=== PATIENT | male | born 1925 | race Caucasian/White ===

== ENCOUNTER 2016-07-03 18:08 | Emergency (ER) | payer MEDICARE, OTHER ==
[~2016-07-03] VITALS: Wt 62.0 kg
[~2016-07-03 18:08] MED LIST: ASPI-664 PO; CARV3.1260 PO; CLOP75TA27 PO; DEXL30CA2 PO; DONE10TA7 PO; ENAL5TAB PO; GABA300C16 PO; ISOS60TA PO; METF-382 PO; METR500T14 PO; SPIR25TA PO; ZOC20 PO
[2016-07-03 18:35] VITALS: TEMP 98.3
[2016-07-03] MEDS ORDERED: SOD CHLORIDE 0.9% 500 ML IV STA (18:46)
[2016-07-03 19:37] LABS: ADD SCAN DIFF NO
--- NOTE | 2016-07-03 19:38 | ERD ---
ER Documentation Chief Complaint Date/Time DATE: 07/03/16 TIME: 19:35 Chief Complaint ALTERED PER X 1 DAY HPI 89-year-old male history of dementia. 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 The patient's daughter states that he is always confused at baseline. The reason they are here in the emergency room is because of abdominal pain. The patient has had 24 hours of abdominal cramping and difficulty having bowel movements. No nausea or vomiting. The patient has had hernia surgery in the past. Patient's pain is moderate, cramping and intermittent. The patient does not take a stool softener. ROS All systems reviewed and are negative except as per history of present illness. Medications Home Meds Active Scripts Metronidazole* (Metronidazole*) 500 Mg Tablet, 500 MG PO Q8, #9 TAB Take 1 tablet 3 times a day for 3 days Prov:KODY BISHOP 02/19/15 Reported Medications Carvedilol* (Carvedilol*) 3.125 Mg Tablet, 3.125 MG PO DAILY, TAB 02/13/15 Isosorbide Mononitrate* (Isosorbide Mononitrate*) 60 Mg Tab.er.24h, 60 MG PO DAILY, TAB 02/13/15 Dexlansoprazole (Dexilant) 30 Mg Cap.mp, 30 MG PO DAILY, CAP 02/13/15 Gabapentin* (Gabapentin*) 300 Mg Capsule, 300 MG PO QHS, CAP 02/13/15 Spironolactone* (Aldactone*) 25 Mg Tablet, 25 MG PO DAILY, TAB 02/13/15 Clopidogrel Bisulfate (Clopidogrel) 75 Mg Tablet, 75 MG PO DAILY, TAB 02/13/15 Simvastatin (Simvastatin) 20 Mg Tablet, 20 MG PO HS, TAB 02/13/15 Donepezil* (Donepezil*) 10 Mg Tablet, 10 MG PO DAILY, TAB 02/13/15 Aspirin (Low Dose Aspirin) 81 Mg Tablet., 81 MG PO DAILY 02/13/15 Metformin Hcl* (Metformin Hcl*) 500 Mg Tablet, 500 MG PO WITH BREAKFAST, TAB 02/13/15 Enalapril Maleate* (Enalapril Maleate*) 5 Mg Tablet, 5 MG PO DAILY, TAB 10/13/14 Allergies Allergies: Coded Allergies: No Known Allergy (Unverified , 04/04/15) PMhx/Soc History of Surgery: No Anesthesia Reaction: No Hx Neurological Disorder: No Hx Respiratory Disorders: No Hx Cardiac Disorders: No Hx Psychiatric Problems: No Hx Miscellaneous Medical Probl: Yes (DM 2, HYPERLIPIDEMIA, DEMENTIA, HTN) Hx Alcohol Use: No Hx Substance Use: No Hx Tobacco Use: No FmHx Family History: No diabetes Physical Exam Vitals Vital Signs Date Time Temp Pulse Resp B/P Pulse Ox O2 Delivery O2 Flow Rate FiO2 07/03/16 18:09 98.0 101 18 163/77 99 Physical Exam General: Well developed, well nourished, no acute distress Head: Normocephalic, atraumatic. Eyes: Pupils equally reactive, EOM intact ENT: Moist mucous membranes Neck: Supple, no lymphadenopathy Respiratory: Lungs clear bilaterally, no distress Cardiovascular: RRR, no murmurs, rubs, or gallops Abdominal: Soft, mild diffuse tenderness without rebound or guarding, no pulsatile mass : Normal descended testicles without swelling, no inguinal hernia bilaterally MSK: No edema, no unilateral swelling, 5/5 strength Neurologic: Alert and oriented at neurologic baseline, moving all extremities, normal speech, no focal weakness, no cerebellar signs Skin: No rash Psych: Normal mood Result Diagram: 07/03/16 1900 07/03/161899 Results 24 hrs Laboratory Tests Test 07/03/16 19:00 Alanine Aminotransferase (ALT/SGPT) 19IU/L Albumin 3.9g/dl Albumin/Globulin Ratio 0.90 Alkaline Phosphatase 91IU/L Anion Gap 16 Aspartate Amino Transf (AST/SGOT) 32IU/L Basophils # 0.010^3/ul Basophils % 0.4% Blood Urea Nitrogen 16mg/dl Calcium Level 8.7mg/dl Carbon Dioxide Level 26mmol/L Chloride Level 100mmol/L Creatinine 1.13mg/dl Direct Bilirubin 0.00mg/dl Eosinophils # 0.210^3/ul Eosinophils % 1.4% Globulin 4.30g/dl Glucose Level 141mg/dl Hematocrit 35.4% Hemoglobin 11.9g/dl Indirect Bilirubin 0.2mg/dl Lipase 92U/L Lymphocytes # 1.310^3/ul Lymphocytes % 11.6% Mean Corpuscular Hemoglobin 29.0pg Mean Corpuscular Hemoglobin Concent 33.6g/dl Mean Corpuscular Volume 86.3fl Mean Platelet Volume 12.4fl Monocytes # 0.710^3/ul Monocytes % 6.5% Neutrophils # 8.910^3/ul Neutrophils % 79.8% Nucleated Red Blood Cells # 0.010^3/ul Nucleated Red Blood Cells % 0.0/100WBC Platelet Count 52205^3/UL Potassium Level 4.2mmol/L Red Blood Count 4.1010^6/ul Red Cell Distribution Width 15.1% Sodium Level 138mmol/L Total Bilirubin 0.2mg/dl Total Protein 8.2g/dl Urine Bilirubin NEGATIVE Urine Clarity CLEAR Urine Color YELLOW Urine Glucose NEGATIVE% Urine Hemoglobin NEGATIVE Urine Ketones NEGATIVE Urine Leukocyte Esterase NEGATIVE Urine Nitrite NEGATIVE Urine Specific Apex 1.010 Urine Total Protein NEGATIVE Urine Urobilinogen 0.2 E.U./dL Urine pH 7.0 White Blood Count 11.210^3/ul Current Medications Medications (Trade) Dose Ordered Sig/Jeff Route PRN Reason Start Time Stop Time Status Last Admin Dose Admin Sodium Chloride (NS) 500 ml @ 500 mls/hr Q1H STAT IV 07/03/16 18:46 07/03/16 19:45 DC 07/03/16 19:26 IV Flush 10 ml 10 ml STK-MED ONCE .ROUTE 07/03/16 20:28 07/03/16 20:29 DC Sodium Chloride (NS) 100 ml @ ud STK-MED ONCE .ROUTE 07/03/16 20:28 07/03/16 20:29 DC Iodixanol (Visipaque Locm) 100 ml STK-MED ONCE .ROUTE 07/03/16 20:28 07/03/16 20:29 DC Procedures/MDM EKG, MONITORS, & DIAGNOSTIC IMAGING: CT abdomen and pelvis: Pending LAB INTERPRETATION: Subtle leukocytosis but nonsignificant, no hepatobiliary obstruction, no urinary tract infection MEDICAL DECISION MAKING: The patient presents with baseline dementia that is unchanged. He is here because of abdominal pain likely secondary to constipation. However given the patient's age, surgical history cannot rule out acute intra-abdominal process such as obstruction. The patient has no evidence of hernia on clinical exam. The patient will benefit from CT imaging of the abdomen and pelvis. If negative the patient will be started on a bowel regimen. ER COURSE: The patient continues to be well-appearing at this time. The patient CT imaging is pending. The patient will be endorsed to the oncoming provider. CT imaging shows no evidence of acute intra-abdominal process the patient can be safely discharged on a bowel regimen. Discharge paperwork will be placed in the chart. I kept the patient and/or family informed of laboratory and diagnostic imaging results throughout the emergency room course. DISPOSITION PLAN: Pending CT imaging but anticipate discharge home We discussed follow up with the patient's primary care doctor within 24 to 48 hours as needed. We also discussed return to the emergency room for worsening symptoms or worsening condition. Outpatient referral: [None required] Discharge Medications: MiraLAX Departure Diagnosis: Primary Impression: Constipation Constipation type: unspecified constipation type Qualified Code: K59.00 - Constipation, unspecified constipation type Additional Impression: Generalized abdominal pain Condition: Stable JESSICA MERCADO MD Jul 03, 2016 19:38
[2016-07-03 19:43] LABS: ADD UMIC NO; BASOPHILS % 0.4 % (0.0-2.0); EOSINOPHILS # 0.2 10^3/ul (0.0-0.5); EOSINOPHILS % 1.4 % (0.0-7.0); HEMATOCRIT 35.4 % (42.0-52.0); HEMOGLOBIN 11.9 g/dl (14.0-18.0); LYMPHOCYTES # 1.3 10^3/ul (0.8-2.9); LYMPHOCYTES % 11.6 % (15.0-51.0); MEAN CORPUSCULAR HGB CONC 33.6 g/dl (32.0-37.0); MEAN CORPUSCULAR VOLUME 86.3 fl (82.0-101.0); MEAN PLATELET VOLUME 12.4 fl (7.4-10.4); MONOCYTE # 0.7 10^3/ul (0.3-0.9); MONOCYTES % 6.5 % (0.0-11.0); NEUTROPHIL # 8.9 10^3/ul (1.6-7.5); NEUTROPHILS % 79.8 % (39.0-77.0); PLATELET COUNT 216 10^3/UL (140-415); RED CELL DISTRIBUTION WIDTH 15.1 % (11.5-14.5); URINE BILIRUBIN (Dip) NEGATIVE (NEGATIVE); URINE BLOOD (Dip) NEGATIVE (NEGATIVE); URINE COLOR YELLOW (YELLOW); URINE GLUCOSE (Dip) NEGATIVE (NEGATIVE); URINE KETONES (Dip) NEGATIVE (NEGATIVE); URINE LEUKOCYTE ESTERASE (Dip) NEGATIVE (NEGATIVE); URINE NITRITE (Dip) NEGATIVE (NEGATIVE); URINE TOTAL PROTEIN (Dip) NEGATIVE (NEGATIVE); URINE UROBILINOGEN (Dip) 0.2 E.U./dL (0.1-1.0); WHITE BLOOD COUNT 11.2 10^3/ul (4.8-10.8)
[2016-07-03 19:50] LABS: ALBUMIN 3.9 g/dl (3.3-4.9)
[2016-07-03 19:51] LABS: POTASSIUM 4.2 mmol/L (3.5-5.1)
[2016-07-03 19:53] LABS: ALBUMIN/GLOBULIN RATIO 0.9; BILIRUBIN,INDIRECT 0.2 mg/dl (0-1.1); BILIRUBIN,TOTAL 0.2 mg/dl (0.2-1.3); CALCIUM 8.7 mg/dl (8.4-10.2); CREATININE 1.13 mg/dl (0.61-1.24); TOTAL PROTEIN 8.2 g/dl (6.1-8.1)
[2016-07-03 20:00] VITALS: BP 157/83; PULSE 93; RESP 22
[2016-07-03] MEDS ORDERED: SOD CHLORIDE 0.9% 100 ML ONE (20:28)
[2016-07-03] MEDS ORDERED: IODIXANOL LOCM 100 ML BTL ONE (20:28)
[2016-07-03] MEDS ORDERED: GLYC1SUP92 PR (20:41)
[2016-07-03] MEDS ORDERED: POLY17PO6 PO (20:41)
--- NOTE | 2016-07-03 21:03 | RADRPT ---
PROCEDURE: CT Abdomen and Pelvis with contrast. CLINICAL INDICATION: Abdomen and pelvis pain. TECHNIQUE: CT scan of the abdomen and pelvis with contrast was performed. The patient was scanned following the uncomplicated intravenous administration of 100 cc of Visipaque 320. Coronal and sag ittal reformatted images were obtained from the axial source images. Images were reviewed on a high- resolution PACS workstation. Total exam DLP is 285.72 mGy-cm. CTDIvol is 5.39 mGy. One or more of the following dose reduction techniques were used: Automated exposure control, adjustment of the mA and/or kV according to patient size, use of iterative reconstruction technique. COMPARISON: CT scan of the abdomen and pelvis dated 02/13/2015 which demonstrated diverticulosis o f the sigmoid colon, thickening of the wall of the sigmoid colon, scarring at the lung bases, bilate ral fat containing inguinal hernias, and atherosclerosis of the abdominal aorta. FINDINGS: As seen previously, there is fibrosis at both lung bases. This is now worse than seen previously. Mild bronchiectasis is also present at the lung bases posteriorly, unchanged. The lung bases are ot herwise normal. There is no pleural effusion or pericardial effusion. There is coronary artery palmira cification. The liver is normal in size and attenuation. There is no focal hepatic lesion. The gallbladder is unremarkable. The common bile duct is mildly dilated measuring 0.9 cm. There is a possible stone in the distal common bile duct measuring 1.1 x 0.6 cm. The spleen is normal in size. There is no focal splenic lesion. Both adrenals are normal with no enlargement or mass. The pancreas is unremarkable with no mass or evidence of pancreatitis. Both kidneys demonstrate normal contrast enhancement. There is no renal mass or hydronephrosis. The abdominal aorta is not dilated. There is calcification in the aorta consistent with atheroscler osis. There is no retroperitoneal lymphadenopathy or mass. There is no pelvic lymphadenopathy or mass. The bladder and distal ureters are normal. The prostate is surgically absent with surgical clips not ed in the pelvis. The appendix is well seen and appears normal. There is diverticulosis throughout the sigmoid colon. There is no evidence of diverticulitis. Ther e is a large amount of stool in the rectosigmoid consistent with constipation. The bowel and mesent catalina are otherwise normal. There is no free fluid or free gas. There are degenerative changes of the spine. There is no fracture, lytic lesion, or blastic lesion. IMPRESSION: 1. Fibrosis at the lung bases, worse than seen previously. 2. Mild bronchiectasis at the lung bases posteriorly, unchanged. 3. Coronary artery calcification. 4. Mildly dilated common bile duct and possible stone in the distal common bile duct measuring 1.1 x 0.6 cm. 5. Atherosclerosis. 6. Status post prostatectomy. 7. Diverticulosis of the sigmoid colon without evidence of diverticulitis. 8. Constipation. 9. Degenerative changes of the spine. RPTAT: QQ .Enmanuel Vaca MD, MD Date Time Electronically viewed and signed by .Enmanuel Vaca MD, MD on 07/03/2016 21:03 .R/
[2016-07-03] MEDS ORDERED: morphine 2 MG INJ IV ONE (21:30)
[2016-07-03] MEDS ORDERED: ONDANSETRON 4 MG INJ IV STA (21:30)
--- NOTE | 2016-07-03 22:36 | RADRPT ---
PROCEDURE: US right upper quadrant CLINICAL INDICATION: Abdominal pain. Possible gallstone obstructing the distal common bile duct o n CT TECHNIQUE: Multiple real-time images were acquired of the patient's right upper abdomen utilizing a high resolution transducer. Technical note: The examination is limited by bowel gas and the patient's body habitus. COMPARISON: CT abdomen and pelvis 07/03/2016 FINDINGS: Liver: Normal in size, contour and echogenicity. Normal directional blood flow is seen within the p atent main portal vein. The maximum dimension estimated at 12 cm . Gallbladder: Normal. No sonographic Monroy's sign is reported. Common bile duct: Normal; 3.8 mm. There is no evidence for choledocholithiasis, the calcification seen on the CT at the distal common bile duct is not evident. Right Kidney: Normal; maximum length measured at approximately 9 cm. Pancreas: Obscured by bowel gas. RPTAT:HJJR IMPRESSION: 1. Limited exam because of bowel gas and the patient's body habitus. 2. Calcification and common bile duct dilatation suggested on the CT from earlier the same day is n ot evident on ultrasound. The CT finding may reflect a calculus already passed into the duodenum or possibly duodenal debris within a diverticulum. 3. Bowel gas obscures evaluation of the pancreas. Physician Ziyad Date Time Electronically viewed and signed by Physician Ziyad on 07/03/2016 22:35 /
--- NOTE | 2016-07-03 22:43 | EN ---
Date/Time of Note Date/Time of Note DATE: 07/03/16 TIME: 22:41 ER Progress Note Patient had a CAT scan performed which is interpreted as a possible gallstone obstructing the gallbladder. His lab work was not consistent with this however he is an 89-year-old gentleman who is here complaining of abdominal pain. For completion sake and to rule this out I ordered an ultrasound of his gallbladder. Likely this did not reveal evidence of a gallstone nor did reveal evidence of obstruction. This is actually most consistent with the patient's lab work. I went ahead and placed the discharge paperwork that Dr. Lou had already printed up for the patient on the patient's chart. He has been encouraged to follow-up with his primary care physician tomorrow for reevaluation of his abdominal pain or to return immediately to the emergency department for any new or worsening symptoms. JUDY HONEYCUTT Jul 03, 2016 22:43
== END 2016-07-03 23:09 | disposition home or self-care (01) ==
LOC: E/R 18:08
DX: K59.00 Constipation, unspecified (principal); R10.84 Generalized abdominal pain; E11.9 Type 2 diabetes mellitus without complications; I10 Essential (primary) hypertension; Z79.82 Long term (current) use of aspirin; Z79.84 Long term (current) use of oral hypoglycemic drugs
CPT/HCPCS: 36415; 74177; 76705; 80053; 81003; 83690; 85025; 96374; 96375; 99285; J2270; J2405; J7040; Q9967

== ENCOUNTER 2016-08-24 20:44 | Inpatient (IN) | payer MEDICARE, OTHER ==
[~2016-08-24] VITALS: Ht 162.6 cm; Wt 52.6 kg
[~2016-08-24 20:44] MED LIST changes: +GLYC1SUP92 PR; -METF-382 PO; +METF500T4 PO; +POLY17PO6 PO; +SIMV20TA2 PO; -ZOC20 PO
[2016-08-24 20:48] VITALS: Ht 162.6 cm; Wt 52.6 kg
--- NOTE | 2016-08-24 21:55 | RADRPT ---
PROCEDURE: CT Brain without contrast. CLINICAL INDICATION: Trauma. Headache. TECHNIQUE: A CT of the brain without contrast was performed utilizing axial sections from the skul l base through the vertex. The patient was scanned without intravenous contrast enhancement. Sagitta l and coronal reformatted images were obtained using the data from the axial images. Total exam DLP is 632.99 mGy-cm. CTDIvol is 44.77 mGy. One or more of the following dose reduction techniques we re used: Automated exposure control, adjustment of the mA and/or kV according to patient size, use o f iterative reconstruction technique. COMPARISON: 04/03/2015. FINDINGS: There is normal gonzalez-white matter differentiation. There is enlargement of the ventricles and subarachnoid spaces consistent with atrophy. There is decreased attenuation of the periventricular white matter consistent with microangiopathic ischemic change. There is no acute intracranial hemorrhage. There are bilateral frontal low attenuation subdural flu id collections measuring up to 0.9 x 7.0 cm in thickness and AP dimension on the right and 0.9 x 9.0 cm in thickness and AP dimension on the left. There is mild mass effect with flattening of the sulc i in the frontal lobes with left worse than right. This is new when compared with the prior study. There is no midline shift. There are vascular calcifications consistent with atherosclerosis. There is no skull fracture or lytic lesion. IMPRESSION: 1. Atrophy. 2. Microangiopathic ischemic change. 3. Atherosclerosis. 4. 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 Mild mass effect with flattening of the sulci. 5. No acute intracranial hemorrhage. 6. Otherwise unremarkable noncontrast CT scan of the brain. RPTAT: QQ .Enmanuel Vaca MD, Date Time Electronically viewed and signed by .Enmanuel Vaca MD, on 08/24/2016 21:54 .R/
[2016-08-24] MEDS ORDERED: morphine 2 MG INJ IV ONE (22:00)
--- NOTE | 2016-08-24 22:03 | ERA ---
ER Documentation Chief Complaint Date/Time DATE: 08/24/16 TIME: 22:03 Chief Complaint from [facility] for left hip pain, fell few days ago, no new trauma HPI 89-year-old male with a history of dementia sent from his care home after he had a fall yesterday. He has been complaining of left hip pain. He was seen by Dr. Okeefe, who sent him here for evaluation. Per his , he has had frequent falls at home, which is why he went to another hospital about 6 days ago and was admitted for 5 days. Yesterday he was transferred to the care home. It is unclear how he fell per his , but he has been complaining of left hip pain since. He denies any other pain. He denies headache, nausea, vomiting, numbness or tingling. He complains of left upper thigh pain. Pain is worse with movement, better with not moving leg. ROS Review of systems limited secondary to patient's dementia. Selectively answering questions Medications Home Meds Reported Medications Dorzolamide/Timolol* (Dorzolamide/Timolol*) 10 Ml Drops, 1 DROP BOTH EYES DAILY , #1 EA 08/24/16 Bimatoprost* (Lumigan*) 0.01%-2.5 Ml Opht Drops, 1 DROP BOTH EYES HS, EA 08/24/16 Ranolazine* (Ranexa*) 500 Mg Tab.sr.12h, 500 MG PO Q12, TAB 08/24/16 Risperidone* (Risperidone*) 0.25 Mg Tablet, 0.25 MG PO QHS, TAB 08/24/16 Memantine* (Namenda*) 10 Mg Tablet, 10 MG PO DAILY, #30 TAB 08/24/16 Amiodarone Hcl* (Amiodarone Hcl*) 100 Mg Tablet, 100 MG PO DAILY, #30 TAB 08/24/16 Carvedilol* (Carvedilol*) 3.125 Mg Tablet, 3.125 MG PO DAILY, TAB 02/13/15 Isosorbide Mononitrate* (Isosorbide Mononitrate*) 60 Mg Tab.er.24h, 60 MG PO DAILY, TAB 02/13/15 Dexlansoprazole (Dexilant) 30 Mg Cap., 30 MG PO DAILY, CAP 02/13/15 Gabapentin* (Gabapentin*) 300 Mg Capsule, 300 MG PO QHS, CAP 02/13/15 Spironolactone* (Aldactone*) 25 Mg Tablet, 25 MG PO DAILY, TAB 02/13/15 Simvastatin (Simvastatin) 20 Mg Tablet, 20 MG PO HS, TAB 02/13/15 Donepezil* (Donepezil*) 10 Mg Tablet, 10 MG PO DAILY, TAB 02/13/15 Aspirin (Low Dose Aspirin) 81 Mg Tablet.dr, 81 MG PO DAILY 02/13/15 Metformin Hcl* (Metformin Hcl*) 500 Mg Tablet, 500 MG PO WITH BREAKFAST, TAB 02/13/15 Enalapril Maleate* (Enalapril Maleate*) 5 Mg Tablet, 5 MG PO DAILY, TAB 10/13/14 Discontinued Reported Medications Clopidogrel Bisulfate (Clopidogrel) 75 Mg Tablet, 75 MG PO DAILY, TAB 02/13/15 Discontinued Scripts Glycerin* (Glycerin (Adult)*) 1 Each Supp.rect, 1 EACH [place] DAILY Y for CONSTIPATION, #20 SUPP.RECT Prov:JESSICA MERCADO MD 07/03/16 Polyethylene Glycol* (Miralax*) 17 Gm Powd.pack, 17 GM PO DAILY Y for CONSTIPATION, #7 Prov:JESSICA MERCADO MD 07/03/16 Metronidazole* (Metronidazole*) 500 Mg Tablet, 500 MG PO Q8, #9 TAB Take 1 tablet 3 times a day for 3 days Prov:KODY BISHOP 02/19/15 Allergies Allergies: Coded Allergies: No Known Allergy (Unverified , 08/24/16) PMhx/Soc History of Surgery: No Anesthesia Reaction: No Hx Neurological Disorder: No Hx Respiratory Disorders: No Hx Cardiac Disorders: No Hx Psychiatric Problems: No Hx Miscellaneous Medical Probl: Yes (DM 2, HYPERLIPIDEMIA, DEMENTIA, HTN) Hx Alcohol Use: No Hx Substance Use: No Hx Tobacco Use: No Smoking Status: Never smoker FmHx Family History: other (Unable to obtain) Physical Exam Vitals Vital Signs Date Time Temp Pulse Resp B/P Pulse Ox O2 Delivery O2 Flow Rate FiO2 08/24/16 20:48 96.8 94 18 104/52 94 Physical Exam Const: Appears stated age, chronically ill-appearing, nontoxic, no distress Head: Atraumatic Eyes: Normal Conjunctiva ENT: Dry mucous membranes, external ears normal Neck: Full range of motion. No meningismus. No C-spine tenderness. Chest: Nontender to palpation, no crepitus, no deformity Resp: Clear to auscultation bilaterally Cardio: Regular rate and rhythm, no murmurs Abd: Soft, non tender, non distended. Normal bowel sounds Skin: No petechiae or rashes Back: No midline or flank tenderness Ext: No cyanosis, or edema. Left lower extremity is in external rotation. Patient screams when I try to move his leg. There are 2+ DP and PT pulses. Sensations are intact. He is able to move his toes. All other extremities are normal without any obvious deformities. Pelvis is stable. Neur: Awake and alert, oriented to self only, unable to test gait, spontaneously moving all other extremities Results 24 hrs Current Medications Medications (Trade) Dose Ordered Sig/Jeff Route PRN Reason Start Time Stop Time Status Last Admin Dose Admin Morphine Sulfate (morphine) 2 mg ONCE ONCE IV 08/24/16 22:00 08/24/16 22:01 DC 08/24/16 22:23 Ondansetron HCl (Zofran Inj) 4 mg BRIDGE ORDER PRN IV NAUSEA AND/OR VOMITING 08/24/16 22:30 08/25/16 22:29 Acetaminophen (Tylenol Tab) 650 mg ER BRIDGE PRN PO MILD PAIN/FEVER 08/24/16 22:30 08/25/16 22:29 IV Flush (NS 3 ml) 3 ml PER PROTOCOL IV 08/24/16 23:00 UNV Ondansetron HCl (Zofran Inj) 4 mg Q6H PRN IV NAUSEA AND/OR VOMITING 08/24/16 23:00 UNV Acetaminophen (Tylenol Tab) 650 mg Q6H PRN PO PAIN LEVEL 1-3 OR FEVER 08/24/16 23:00 UNV Acetaminophen/ Hydrocodone Bitart (Walnut (5/325)) 1 tab Q6H PRN PO MODERATE PAIN LEVEL 4-6 08/24/16 23:00 UNV Morphine Sulfate (morphine) 2 mg Q4H PRN IV SEVERE PAIN LEVEL 7-10 08/24/16 23:00 UNV Docusate Sodium (Colace) 100 mg Q12H PRN PO CONSTIPATION 08/24/16 23:00 UNV Magnesium Hydroxide (Milk Of Mag) 30 ml DAILY PRN PO CONSTIPATION 5/10/17 23:00 UNV Zolpidem Tartrate (Ambien) 5 mg QHS PRN PO SLEEP 08/24/16 23:00 UNV Pantoprazole (Protonix Tab) 40 mg DAILY@06 PO 08/25/16 06:00 UNV Heparin Sodium (Porcine) (Heparin (5000 Units/0.5 ml)) 5,000 unit Q12 SC 08/24/16 23:00 UNV Amiodarone HCl (Cordarone) 100 mg DAILY PO 08/25/16 09:00 UNV Aspirin (Halfprin) 81 mg DAILY PO 08/25/16 09:00 UNV Bimatoprost (Lumigan 0.01% Oph) 1 drop HS BOTH EYES 08/25/16 21:00 UNV Carvedilol (Coreg) 3.125 mg DAILY PO 08/25/16 09:00 UNV Donepezil HCl (Aricept) 10 mg DAILY PO 08/25/16 09:00 UNV Dorzolamide/ Timolol (Cosopt) 1 drop DAILY BOTH EYES 08/25/16 09:00 UNV Enalapril Maleate (Vasotec) 5 mg DAILY PO 08/25/16 09:00 UNV Gabapentin (Neurontin) 300 mg QHS PO 08/25/16 21:00 UNV Isosorbide Mononitrate (Imdur) 60 mg DAILY PO 08/25/16 09:00 UNV Memantine (Namenda) 10 mg DAILY PO 08/25/16 09:00 UNV Ranolazine (Ranexa) 500 mg Q12 PO 08/25/16 09:00 UNV Risperidone (Risperdal) 0.25 mg QHS PO 08/25/16 21:00 UNV Spironolactone (Aldactone) 25 mg DAILY PO 08/25/16 09:00 UNV Insulin Aspart (Novolog Insulin Pen) NOVOLOG *MODERATE* ALGORITHM WITH MEALS BEDTIME SC 08/25/16 08:00 UNV Miscellaneous Information (* Miscellaneous Pharmacy Order) HYPOGLYCEMIA PROTOCOL w... ONCE ONCE XX 08/24/16 23:00 08/24/16 23:01 UNV Miscellaneous Information (* Miscellaneous Pharmacy Order) Discontinue Glyburide, Glipizide,... ONCE ONCE XX 08/24/16 23:00 08/24/16 23:01 UNV Miscellaneous Information (* Miscellaneous Pharmacy Order) Discontinue all previ... ONCE ONCE XX 08/24/16 23:00 08/24/16 23:01 UNV Procedures/MDM X-ray left hip, pelvis, femur: Acute, closed, comminuted minimally displaced extracapsular intertrochanteric fracture of the left femur to with mild varus distraction of the fracture fragments. Chest x-ray: No acute abnormalities CT head shows no acute abnormalities, chronic changes noted Patient is presenting with left hip pain after a fall at his nursing facility yesterday. His exam is concerning for a hip fracture. Morphine 2 mg IV was given for pain. He is neurovascularly intact. X-rays show evidence of an intertrochanteric fracture. I spoke with his primary care doctor, Dr. Okeefe, who accepted him for admission to [facility]. He will contact Dr. Villela in the morning for a consult. Departure Diagnosis: Primary Impression: Intertrochanteric fracture of left femur Qualified Code: S72.142A - Intertrochanteric fracture of left femur, closed, initial encounter Condition: JOHN Hernandes MD August 24, 2016 22:03
[2016-08-24] MEDS ORDERED: AMIO100T4 PO (22:08)
[2016-08-24] MEDS ORDERED: MEMA10TA16 PO (22:09)
[2016-08-24] MEDS ORDERED: RISP0.253 PO (22:09)
[2016-08-24] MEDS ORDERED: BIMA2.5D BOTH EYES (22:10)
[2016-08-24] MEDS ORDERED: RANO500T2 PO (22:10)
[2016-08-24] MEDS ORDERED: DORZ10DR6 BOTH EYES (22:12)
--- NOTE | 2016-08-24 22:13 | RADRPT ---
PROCEDURE: XR Chest. CLINICAL INDICATION: Chest pain. Trauma TECHNIQUE: Portable AP supine view of the chest was obtained. COMPARISON: 04/03/2015 FINDINGS: The cardiomediastinal silhouette is within upper normal limits. Diffuse senescent interstitial fibr otic changes of the lung parenchyma are again noted without evidence of focal opacity, consolidation or infiltrate. No obvious pneumothorax is seen on the supine exposure. Demineralization is noted with an acute minimally displaced lateral left seventh rib fracture. RPTAT:HJJR IMPRESSION: 1. Left lateral seventh rib fracture without evidence of associated intrathoracic complication on t his supine exposure. 2. Generalized senescent interstitial changes of the lung parenchyma stable compared to 04/03/2015. Physician Ziyad Date Time Electronically viewed and signed by Tam Dooley Physician on 08/24/2016 22:13 JR/
--- NOTE | 2016-08-24 22:15 | RADRPT ---
PROCEDURE: XR Pelvis. CLINICAL INDICATION: Trauma TECHNIQUE: Single AP view of the pelvis. COMPARISON: No prior studies are available for comparison. FINDINGS: Abnormal jagged lucency coursing obliquely through the intertrochanteric region of the left femur is consistent with an acute fracture. No pelvic bone fracture is demonstrated. Demineralization cannot exclude osteoporosis. The sacroiliac joints and pubic symphysis are normal. Postoperative clips in the pelvis are seen RPTAT:HJJR IMPRESSION: Acute, closed, extracapsular intertrochanteric fracture of the left proximal femur with varus distra ction of the fracture fragments and a separate nondisplaced lesser trochanter fracture fragment. Physician Ziyad Date Time Electronically viewed and signed by Physician Ziyad on 08/24/2016 22:14 /
--- NOTE | 2016-08-24 22:16 | RADRPT ---
PROCEDURE: XR Hip. CLINICAL INDICATION: Post traumatic left hip pain TECHNIQUE: AP and frog lateral views of the left hip were performed. COMPARISON: Pelvis x-ray of 08/24/2016 FINDINGS: Abnormal jagged lucencies coursing obliquely through the trochanter region of the left femur consist ent with acute fracture. There is distraction of the fracture fragments is present. There is a nond isplaced separate fragment involving the lesser trochanter. The femoral head is normal in location. Generalized demineralization is concerning for osteoporosis. The soft tissues are unremarkable. . RPTAT:HJJR IMPRESSION: Acute, closed, comminuted minimally displaced extracapsular intertrochanteric fracture of the left f emur to with mild varus distraction of the fracture fragments. Physician Ziyad Date Time Electronically viewed and signed by Physician Ziyad on 08/24/2016 22:16 /
[2016-08-24] MEDS ORDERED: ONDANSETRON 4 MG INJ IV PRN ×2 (22:30→23:00)
[2016-08-24] MEDS ORDERED: ACETAMINOPHEN 325 MG TAB PO PRN (22:30)
--- NOTE | 2016-08-24 22:31 | RADRPT ---
PROCEDURE: XR Femur. CLINICAL INDICATION: Left leg pain. TECHNIQUE: AP and lateral views of the left femur were performed. COMPARISON: None. FINDINGS: There is an acute comminuted intratrochanteric fracture of the left hip. There is no other fracture and there is no dislocation. Surgical clips are present in the pelvis. Articular surfaces are intact. There is no lytic or blastic lesion. IMPRESSION: 1. Acute comminuted intertrochanteric fracture of the left hip. 2. Surgical clips in the pelvis. 3. Otherwise unremarkable study. RPTAT: QQ .Enmanuel Vaca MD, Date Time Electronically viewed and signed by .Enmanuel Vaca MD, on 08/24/2016 22:31 .R/
[2016-08-24 22:47] LABS: ADD SCAN DIFF NO
[2016-08-24 22:50] LABS: BASOPHILS % 0.2 % (0.0-2.0); EOSINOPHILS # 0.1 10^3/ul (0.0-0.5); EOSINOPHILS % 0.9 % (0.0-7.0); HEMATOCRIT 30.2 % (42.0-52.0); HEMOGLOBIN 10.5 g/dl (14.0-18.0); LYMPHOCYTES # 1.1 10^3/ul (0.8-2.9); LYMPHOCYTES % 8.4 % (15.0-51.0); MEAN CORPUSCULAR HEMOGLOBIN 30.1 pg (29.0-33.0); MEAN CORPUSCULAR HGB CONC 34.8 g/dl (32.0-37.0); MEAN CORPUSCULAR VOLUME 86.5 fl (82.0-101.0); MEAN PLATELET VOLUME 10.9 fl (7.4-10.4); MONOCYTE # 1.3 10^3/ul (0.3-0.9); MONOCYTES % 9.9 % (0.0-11.0); NEUTROPHIL # 10.5 10^3/ul (1.6-7.5); NEUTROPHILS % 79.5 % (39.0-77.0); PLATELET COUNT 236 10^3/UL (140-415); RED BLOOD COUNT 3.49 10^6/ul (4.70-6.10); RED CELL DISTRIBUTION WIDTH 16.1 % (11.5-14.5); WHITE BLOOD COUNT 13.2 10^3/ul (4.8-10.8)
[2016-08-24] MEDS ORDERED: DOCUSATE SODIUM 100 MG CAP PO PRN (23:00)
[2016-08-24] MEDS ORDERED: ZOLPIDEM 5 MG TAB PO PRN (23:00)
[2016-08-24] MEDS ORDERED: MAGNESIUM HYDROXIDE 30ML CUP PO PRN (23:00)
[2016-08-24] MEDS ORDERED: NACL 0.9% 3 ML SYG IV SCH (23:00)
[2016-08-24 23:04] LABS: INR 0.94; PROTIME 12.6 Sec (12.2-14.2)
[2016-08-24 23:05] LABS: PARTIAL THROMBOPLASTIN TIME 23.2 Sec (25.0-35.0)
[2016-08-24 23:12] LABS: CALCIUM 8.4 mg/dl (8.4-10.2); CREATININE 1.18 mg/dl (0.61-1.24); POTASSIUM 4.3 mmol/L (3.5-5.1)
[2016-08-24] MEDS ORDERED: GLUCOSE GEL 15 GRAM TUBE BUCCAL PRN (23:45)
[2016-08-24] MEDS ORDERED: GLUCOSE GEL 15 GRAM TUBE PO PRN ×2 (23:45)
[2016-08-24] MEDS ORDERED: GLUCAGON 1 MG INJ IM PRN (23:45)
[2016-08-24] MEDS: HEPARIN 5,000 UNIT/0.5 ML VIAL SC SCH (23:45)
[2016-08-24] MEDS ORDERED: DEXTROSE 50% 50 ML SYRINGE IV PRN ×2 (23:45)
[2016-08-25] VITALS (13 sets, daily range): BP systolic 84–130; BP diastolic 56–90; PULSE 74–97; RESP 16–20; TEMP 98.8
[2016-08-25] MEDS: ACETAMINOPHEN 325 MG TAB PO PRN ×2 (08:00→17:23)
[2016-08-25 08:38] LABS: ADD SCAN DIFF NO
[2016-08-25 08:45] LABS: EOSINOPHILS # 0.1 10^3/ul (0.0-0.5); HEMATOCRIT 31.9 % (42.0-52.0); HEMOGLOBIN 10.7 g/dl (14.0-18.0); MEAN CORPUSCULAR HEMOGLOBIN 29.5 pg (29.0-33.0); MEAN CORPUSCULAR HGB CONC 33.5 g/dl (32.0-37.0); MEAN CORPUSCULAR VOLUME 87.9 fl (82.0-101.0); MEAN PLATELET VOLUME 11.3 fl (7.4-10.4); PLATELET COUNT 223 10^3/UL (140-415); RED BLOOD COUNT 3.63 10^6/ul (4.70-6.10); RED CELL DISTRIBUTION WIDTH 16.3 % (11.5-14.5); WHITE BLOOD COUNT 13.3 10^3/ul (4.8-10.8)
[2016-08-25] MEDS: DORZOLAMIDE/TIMOLOL 10 ML OPH BOTH EYES SCH (08:58)
[2016-08-25] MEDS ORDERED: SPIRONOLACTONE 25 MG TAB PO SCH (09:00)
[2016-08-25] MEDS ORDERED: ISOSORBIDE MONONITRATE(SR)60 MG TAB PO SCH (09:00)
[2016-08-25] MEDS: MEMANTINE 10 MG TAB PO SCH (09:01)
[2016-08-25] MEDS: RANOLAZINE (SR) 500 MG TAB PO SCH ×2 (09:01→20:50)
[2016-08-25] MEDS: ENALAPRIL 5 MG TAB PO SCH (09:01)
[2016-08-25] MEDS: AMIODARONE 200 MG TAB PO SCH (09:01)
[2016-08-25] MEDS: ASPIRIN (EC) 81 MG TAB PO SCH (09:02)
[2016-08-25] MEDS: DONEPEZIL 10 MG TAB PO SCH (09:02)
[2016-08-25] MEDS: PANTOPRAZOLE (EC) 40 MG TAB PO SCH (09:03)
[2016-08-25] MEDS: INSULIN ASPART [NOVOLOG] 3 ML PEN SC SCH ×4 (09:04→20:52)
[2016-08-25] MEDS: HEPARIN 5,000 UNIT/0.5 ML VIAL SC SCH ×2 (09:05→20:58)
[2016-08-25 09:08] LABS: ALBUMIN 3.7 g/dl (3.3-4.9)
[2016-08-25 09:09] LABS: POTASSIUM 4.2 mmol/L (3.5-5.1)
[2016-08-25 09:10] LABS: CREATININE 1.05 mg/dl (0.61-1.24)
[2016-08-25 09:11] LABS: ALBUMIN/GLOBULIN RATIO 0.88; BILIRUBIN,INDIRECT 0.6 mg/dl (0-1.1); BILIRUBIN,TOTAL 0.6 mg/dl (0.2-1.3); TOTAL PROTEIN 7.9 g/dl (6.1-8.1)
[2016-08-25 09:12] LABS: CALCIUM 8.3 mg/dl (8.4-10.2)
--- NOTE | 2016-08-25 10:32 | RADRPT ---
Echocardiogram Report Patient Name: LUIS ALBERTO LOUIS Gender: Male Date: 1925 Study Date: 25-Aug-2016 Trailer Mechanic: Nirmala Wallis [facility] Location: 5566 Ref. Physician: JENNI CROCKETT Quality: Good Procedures: Transthoracic echocardiogram with complete 2D, M-Mode, and doppler examination. Indications: Pre-op. 2D/M Mode Doppler Measurement Value Normal Ranges Measurement Value Normal Ranges LVIDd 2D 4.4 3.5 - 5.6 cm AV Peak Christiano 1.1 m/sec LVIDs 2D 2.8 2.1 - 4.1 cm AV Peak PG 5.0 mmHg LVPWd 2D 0.9 0.6 - 1.1 cm AI Peak PG 64.6 mmHg IVSd 2D 0.9 0.6 - 1.1 cm AI Peak Christiano 4.0 m/sec AoR Diam 2D 3.5 2.0 - 3.7 cm AI PHT 351.1 msec EDV 2D 86.4 cm3 LVOT Peak Christiano 0.9 m/sec ESV 2D 21.6 cm3 LVOT Peak PG 3.4 mmHg LA Dimen 2D 2.7 2.3 - 4.0 cm MV E Peak Christiano 0.5 m/sec MV A Peak Christiano 0.9 m/sec MV E/A 0.5 MV Decel Time 143 msec MV Decel [place] 4 MV E/A 0.5 TR Peak Christiano 2.6 m/sec TR Peak PG 27.7 mmHg RVSP 31.0 mmHg Findings Left Ventricle: Lower limits of normal systolic function. Normal left ventricular cavity size. Normal left ventricular wall thickness. Ejection fraction is visually estimated at 50 %. Tissue Doppler/Mitral Doppler indices are consistent with impaired relaxation (Stage I diastolic dysfunction). Right Ventricle: Normal right ventricular size. Normal right ventricular systolic function. Left Atrium: The left atrium is normal in size. Right Atrium: The right atrium is normal in size. Mitral Valve: Mitral valve leaflets appear mildly thickened. Mild mitral annular calcification. Trace mitral regurgitation. Aortic Valve: No hemodynamically significant aortic stenosis by doppler. Aortic cusps appear mildly calcified. Mild to moderate aortic valve regurgitation. Tricuspid Valve: Normal appearance of the tricuspid valve. Estimated peak PA systolic pressure 31 mmHg. There is trace tricuspid regurgitation. Pulmonic Valve: Normal pulmonic valve appearance. Pericardium: Normal pericardium with no significant pericardial effusion. Aorta: Normal aortic root. IVC: The IVC is not well visualized. Conclusions 1.Lower limits of normal systolic function. Normal left ventricular cavity size. Normal left ventricular wall thickness. Ejection fraction is visually estimated at 50 %. Tissue Doppler/Mitral Doppler indices are consistent with impaired relaxation (Stage I diastolic dysfunction). 2.The left atrium is normal in size. 3.Mitral valve leaflets appear mildly thickened. Mild mitral annular calcification. Trace mitral regurgitation. 4.No hemodynamically significant aortic stenosis by doppler. Aortic cusps appear mildly calcified. Mild to moderate aortic valve regurgitation. 5.Normal appearance of the tricuspid valve. Estimated peak PA systolic pressure 31 mmHg. There is trace tricuspid regurgitation. 6.The IVC is not well visualized. Electronically Signed By: Clinton Francisco 25-Aug-2016 10:31:26 -0700 Patient Name: LUIS ALBERTO LOUIS Study Date: 25-Aug-2016 [id number]
--- NOTE | 2016-08-25 10:36 | RADRPT ---
Vent Rate: 87 bpm RR Interval: 0 msec SD Interval: 166 msec QRS Duration: 104 msec QT Interval: 396 msec QTC Interval: 476 msec P-R-T [place]: 19 - -52 - -4 degrees Normal sinus rhythm Incomplete right bundle branch block Left anterior fascicular block Moderate voltage criteria for LVH, may be normal variant Nonspecific ST and T wave abnormality Prolonged QT Abnormal ECG Electronically Signed By: Clinton Francisco [id number]
[2016-08-25 12:47] LABS: LYMPHOCYTES # 0.9 10^3/ul (0.8-2.9); MONOCYTE # 1.5 10^3/ul (0.3-0.9); NEUTROPHIL # 10.6 10^3/ul (1.6-7.5)
[2016-08-25 13:34] LABS: ADD UMIC YES; URINE BILIRUBIN (Dip) 1+ (NEGATIVE); URINE BLOOD (Dip) NEGATIVE (NEGATIVE); URINE COLOR DK. YELLOW (YELLOW); URINE GLUCOSE (Dip) NEGATIVE (NEGATIVE); URINE KETONES (Dip) NEGATIVE (NEGATIVE); URINE LEUKOCYTE ESTERASE (Dip) NEGATIVE (NEGATIVE); URINE NITRITE (Dip) POSITIVE (NEGATIVE); URINE TOTAL PROTEIN (Dip) TRACE (NEGATIVE); URINE UROBILINOGEN (Dip) 1.0 E.U./dL (0.1-1.0)
[2016-08-25 13:51] LABS: ICTOTEST NEGATIVE (NEGATIVE)
[2016-08-25] MEDS: DEXTROSE 5%-0.9% NACL 1,000 ML IV SCH (14:24)
--- NOTE | 2016-08-25 15:02 | HP ---
DATE OF ADMISSION: 08/24/2016 REASON FOR ADMISSION: Left hip fracture, status post fall. HISTORY OF PRESENT ILLNESS: The patient is an 89-year-old male with history of congestive heart failure, diastolic dysfunction, diabetes mellitus type 2, coronary artery disease, dementia, h ypertension, gastroesophageal reflux disease, who recently admitted to [facility] aft er a fall. Thereafter, he received physical therapy and then transferred to the [facility]. Unfortunately, sustained another fall there and was complaining of left h ip pain. X-ray was pending and I went to see him and upon evaluation I noted the patient to have hi s left lower extremity laterally rotated and short with pain upon movement. I decided to send him t o the [facility] for evaluation, as I was concerned about a left hip fracture. In the ER, the patient was evaluated. 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 No acute intracranial hemorrhage. Otherwise, u nremarkable CT scan of the brain. Chest x-ray shows left lateral 7th rib fracture without evidence of associated intrathoracic complication under supine exposure. The generalized senescent interstiti al changes of the lung parenchyma stable. Hip x-ray unfortunately showed acute close comminuted min imally displaced extracapsular intratrochanteric fracture of the left femur with mild varus distract ion of the fracture fragments. Also pelvic x-ray shows the same, femur x-ray showed acute comminuted intertrochanteric fracture of the left hip. The patient was admitted for further care. Upon admis lory he was also noted to have slight leukocytosis. I consulted Dr. Fabiana Villela, the orthopedic docto r and Dr. Clinton Francisco, the binder stripper machine, for cardiac clearance. Upon evaluation, the patient is co mplaining of pain in the left hip. His p.o. intake is marginal. The patient is admitted for [facility] care. PAST MEDICAL HISTORY: Includes coronary artery disease, diastolic dysfunction heart failure, diabe alexis mellitus, hypertension, dyslipidemia, gastroesophageal reflux disease. Alzheimer dementia, COPD . SURGICAL HISTORY: Unknown. FAMILY HISTORY: Patient has multiple kids. I spoke with his daughter yesterday and informed her of patient's concern of left hip fracture. MEDICATIONS: The patient's medications include: 1. Puree no added salt diet. 2. Plavix 75 mg daily. 3. Digoxin 125 mcg daily. 4. Aricept 10 mg daily. 5. Meclizine 12.5 t.i.d. 6. Namenda 10 mg at bedtime. 7. Metformin 500 b.i.d. 8. Protonix 40 mg daily. 9. Amiodarone 100 mg daily. 10. Coreg 3.125 daily. 11. Ranexa 500 q.12h. 12. Enalapril 20 mg daily. 13. Gabapentin 300 mg daily. 14. Aspirin 81 mg daily. 15. DuoNeb q.6h. 16. Celexa 10 mg daily. 17. Ultram p.r.n. 18. Lorazepam p.r.n. 19. Tylenol p.r.n. Per records, he had a left facial abrasion also at [facility] on 08/22/2016. Chest x-ray [facility] on August 19 shows some interstitial changes, possible fibrosis on the chest x-ray. He had CT scan of the face and sinus on August 19 at the outside hospital showed left maxillary sinus disease as well as a CT scan of the brain showed left maxillary sinus and had x-ray of the left wrist which showed post traumatic deformity of the left distal radius with narrowing of the radial carpal joint space sugges tive of osteoarthritis. This is again x-rays from the outside hospital. X-ray of the ribs. The x-ra y did show no change in bilateral interstitial marking. PHYSICAL EXAMINATION: VITAL SIGNS: Temperature is 97.9, pulse 68, respirations 18, blood pressure 120/61, saturation 99%. GENERAL: The patient is in no acute distress, weak looking, frail patient is pale. CARDIOVASCULAR: S1 and S2, regular rate. LUNGS: Clear. ABDOMEN: Soft, nontender. EXTREMITIES: No clubbing, cyanosis, or edema. Patient's lower extremity is laterally related and s horter. Pain upon movement. LABORATORY DATA: White count is 13.3, hemoglobin 10.7, hematocrit 32, platelets 223, neutrophils 80 %, lymphocytes 7%. Sodium 133, potassium 4.2, chloride 96, bicarbonate 25, BUN is 28, creatinine 1. 05, glucose of 125. Last glucose of 167 and 146. LFTs are normal. Albumin 3.7. UA just looking at it does show positive nitrites and leukocyte esterase negative. WBC pending. Specific gravity grea ter than 1.030, consistent with dehydration and possible mild urinary tract infection. IMAGING: Test as above. EKG: Shows normal sinus rhythm, incomplete right bundle branch block, left anterior fascicular bloc k, moderate voltage criteria for LVH and nonspecific ST-T abnormalities at 87 beats per minute. [facility] e admission he already underwent an echocardiogram which shows the following, preserved ejection fra ction at 50%. There is stage I diastolic dysfunction. ASSESSMENT AND PLAN: This is an 89-year-old male with history of coronary artery disease, diabetes mellitus, hypertension, dementia, who presents with unfortunate fall, was found to have a l eft hip fracture. 1. Left hip fracture. The patient does have moderate risk factors which include coronary artery di sease, diabetes mellitus, functional capacity is slightly limited because of his recurrent falls and dementia, so I consulted cardiology for clearance. We will followup with Dr. Francisco's recommendati ons. Likely continue medical management. I consulted Dr. Fabiana Villela, the orthopedic doctor for paul mmendations. The patient most likely will require surgical repair. 2. Leukocytosis with possible mild urinary tract infection. Will start the patient on Rocephin. 3. Dysphagia. Has previously been on puree diet. Will downgrade his diet to puree diet and see if he eats more. 4. Anemia and dehydration. Will check iron panel, B12, folic acid, reticulocyte count, check stool for occult blood. 5. Dehydration and hyponatremia. The patient will be hydrated gently with D5 normal saline. 6. Dementia. Check B12 levels. 7. The patient will be placed on deep vein thrombosis prophylaxis and gastrointestinal prophylaxis. 7. Fall precautions. 8. Abnormal CT scan of the brain. May need to consult neurology for recommendations to discuss thes e findings. 9. Diabetes mellitus. Check hemoglobin A1c. Accu-Chek q.a.c. and at bedtime will be obtained with insulin sliding scale for now as the patient's p.o. intake is marginal, he is anticipating surgery. 10. Psychiatric disorder. He takes Risperdal low dose at night. 11. Glaucoma, on Xalatan ophthalmic drops. Will review patient's current medications compared to wh at he had previously. We will follow. Dictated By: JENNI RAY/XIN Conf#: [id number] DID#: [id number]
[2016-08-25] MEDS: CEFTRIAXONE 1 GM/50 ML (PMX) 50 ML IVPB SCH (15:06)
--- NOTE | 2016-08-25 15:15 | CONS ---
DATE OF ADMISSION: 08/24/2016 DATE OF CONSULTATION: 08/25/2016 TYPE OF CONSULTATION: Orthopedic Surgical HISTORY OF PRESENT ILLNESS: The patient is an 89-year-old male, a resident of a [facility] with dementia, who was transferred in from the [facility] on 08/24/2016 because of the painful swelling and limited motion involving his left hip. He obviously was transferred int o [facility] intermediate 1 week prior to his transfer to [facility], after 6 days at [facility] facility. He obviously had been having frequent falls lately. Following the fall this time, he i s having severe pain and swelling involving his left hip. PHYSICAL EXAMINATION: GENERAL: My examination revealed an 89-year-old male who was not in any acute distress. EXTREMITIES: There was tenderness and swelling around the left hip. Range of motion of the left hi p was not tested because of the obvious pain. There was shortening and abnormal external rotation o f the left lower extremity. There was no evidence of acute neurovascular compromise involving the l eft lower extremity. DIAGNOSTIC DATA: X-rays of the pelvis revealed an obvious unstable intertrochanteric fracture of th e left hip which was angulated and displaced. DIAGNOSTIC IMPRESSION: Intertrochanteric fracture of the left hip, displaced and angulated and unst able with the lesser trochanter off. TREATMENT PLAN: To surgery for open reduction and internal fixation as soon as he can be medically cleared for surgery. Dictated By: SELAM JAMES/XIN Conf#: [id number] DID#: [id number]
[2016-08-25] MEDS: LATANOPROST 0.005% 2.5 ML OPH BOTH EYES SCH (20:49)
[2016-08-25] MEDS: GABAPENTIN 300 MG CAP PO SCH (20:50)
[2016-08-25] MEDS ORDERED: RISPERIDONE 0.25 MG TAB PO SCH (21:00)
[2016-08-26] VITALS (42 sets, daily range): BP systolic 114–199; BP diastolic 62–102; PULSE 76–116; RESP 10–35
[2016-08-26] MEDS: PANTOPRAZOLE (EC) 40 MG TAB PO SCH (06:11)
[2016-08-26] MEDS: DEXTROSE 5%-0.9% NACL 1,000 ML IV SCH (06:11)
[2016-08-26] MEDS: HYDROCODONE/APAP (5/325) TAB PO PRN ×2 (06:11→23:37)
[2016-08-26 07:53] LABS: ADD SCAN DIFF NO
[2016-08-26] MEDS: INSULIN ASPART [NOVOLOG] 3 ML PEN SC SCH ×3 (08:00→21:00)
[2016-08-26 08:01] LABS: BASOPHILS % 0.2 % (0.0-2.0); EOSINOPHILS # 0.1 10^3/ul (0.0-0.5); EOSINOPHILS % 1.2 % (0.0-7.0); HEMATOCRIT 26.6 % (42.0-52.0); HEMOGLOBIN 8.8 g/dl (14.0-18.0); LYMPHOCYTES # 1.1 10^3/ul (0.8-2.9); LYMPHOCYTES % 9.7 % (15.0-51.0); MEAN CORPUSCULAR HEMOGLOBIN 29.4 pg (29.0-33.0); MEAN CORPUSCULAR HGB CONC 33.1 g/dl (32.0-37.0); NEUTROPHIL # 9.1 10^3/ul (1.6-7.5); NEUTROPHILS % 78.9 % (39.0-77.0); PLATELET COUNT 238 10^3/UL (140-415); RED BLOOD COUNT 2.99 10^6/ul (4.70-6.10); RED CELL DISTRIBUTION WIDTH 16.5 % (11.5-14.5); WHITE BLOOD COUNT 11.5 10^3/ul (4.8-10.8)
[2016-08-26 08:30] LABS: CALCIUM 7.6 mg/dl (8.4-10.2); CREATININE 0.94 mg/dl (0.61-1.24); POTASSIUM 4.1 mmol/L (3.5-5.1)
[2016-08-26 08:33] LABS: MAGNESIUM 2.1 mg/dl (1.7-2.5); PHOSPHORUS 3.3 mg/dl (2.5-4.9)
[2016-08-26] MEDS: HEPARIN 5,000 UNIT/0.5 ML VIAL SC SCH ×2 (09:00→22:00)
[2016-08-26] MEDS: ASPIRIN (EC) 81 MG TAB PO SCH (09:00)
[2016-08-26] MEDS: DONEPEZIL 10 MG TAB PO SCH (09:40)
[2016-08-26] MEDS: DORZOLAMIDE/TIMOLOL 10 ML OPH BOTH EYES SCH (09:40)
[2016-08-26] MEDS: RANOLAZINE (SR) 500 MG TAB PO SCH ×2 (09:40→23:36)
[2016-08-26] MEDS: MEMANTINE 10 MG TAB PO SCH (09:40)
[2016-08-26] MEDS: ENALAPRIL 5 MG TAB PO SCH (09:41)
[2016-08-26] MEDS: CITALOPRAM 20 MG TAB PO SCH (09:41)
[2016-08-26] MEDS: AMIODARONE 200 MG TAB PO SCH (09:42)
[2016-08-26] MEDS ORDERED: PENDING SANTYL ORDER FOR WOUND CARE XX PRN (11:30)
[2016-08-26] MEDS: CEFTRIAXONE 1 GM/50 ML (PMX) 50 ML IVPB SCH ×2 (13:38→17:52)
--- NOTE | 2016-08-26 13:58 | PN ---
DATE: 08/26/2016 SUBJECTIVE: The patient is seen resting comfortably in bed, awaiting left hip ORIF. I appreciate Clifford Francisco and Dr. Fabiana Villela's input. The patient definitely appears more comfortable and more respo nsive. PHYSICAL EXAMINATION: VITAL SIGNS: Temperature 97.9, pulse 76, respirations 17, blood pressure 148/76, saturation is 96%. GENERAL: The patient is in no acute distress. HEENT: Normocephalic, atraumatic. Pale. CARDIOVASCULAR: S1 and S2, regular rate. LUNGS: Clear. ABDOMEN: Soft, nontender. EXTREMITIES: No clubbing, cyanosis, or edema. Left lower extremity is rotated to the left and shor tened. LABORATORY DATA: White count is 11.5, hemoglobin 8.8, hematocrit 27, platelet count 238, neutrophil s 79%, lymphocytes 10%. Chemistry: Sodium 131, potassium 4.1, chloride 100, bicarbonate 26, BUN is 24, creatinine is 0.94, glucose 136. Last glucose levels 149 and 148. UA showed positive nitrites plus WBC 5 to 10. Urine culture and MRSA screening so far negative. MEDICATIONS: Include: 1. Santyl ointment as directed. 2. Celexa 10 mg daily. 3. Xalatan eyedrops at bedtime to both eyes. 4. Neurontin 300 at bedtime. 5. D5 normal saline at 60 mL/hour. 6. Rocephin 1 gram q.24h. 7. Amiodarone 100 mg daily. 8. Aspirin 81 mg daily. 9. Coreg 3.125 daily. 10. Aricept 10 mg daily. 11. Cosopt drops daily. 12. Vasotec 5 mg daily. 13. Namenda 10 mg daily. 14. Ranexa 500 q.12h. 15. Insulin aspart per sliding scale. 16. Protonix 40 mg daily. 17. Heparin 5000 units subcutaneous q.12h., held this morning secondary to anticipated surgery 18. Hypoglycemia protocol. 19. Zofran p.r.n. 205. Tylenol p.r.n. 21. Eglon p.r.n. 22. Morphine p.r.n. 23. Colace p.r.n. 24. Milk of magnesia p.r.n. 25. Ambien p.r.n. ASSESSMENT AND PLAN: This is an 89-year-old male with history of coronary artery disease, diabetes mellitus, hypertension, dementia, presented with unfortunate fall, was found to have left h ip fracture. 1. Left hip fracture. The patient to undergo open reduction internal fixation of the left hip. Ap preciate cardiology input. Currently, chest pain free. Echocardiogram showed preserved ejection fr action 50% with stage I diastolic dysfunction, currently appears to be compensated. The patient to proceed with surgery with moderate risks as discussed with Dr. Francisco. 2. The patient is to be placed on deep vein thrombosis prophylaxis and gastrointestinal prophylaxis . 3. Anemia. The patient will require transfusion postoperatively. 4. Dehydration. Currently on D5 normal saline, patient clinically looks better. 5. History of dementia, stable. Follow up B12 level. 6. Abnormal CT scan of the brain. Discussed the case on the phone with the neurologist, basically no acute findings, no intracranial hemorrhage. 7. Diabetes mellitus. Glucose levels are in the low 100s. Continue insulin sliding scale and sherry tor glucose level postop. 8. Mood appears to be stable. Case discussed with daughter at bedside. She is aware of plan of ca re. 9. Glaucoma. Continue Xalatan ophthalmic drops. 10. Questionable mild urinary tract infection. Continue Rocephin. White count is better. We will follow. Dictated By: JENNI RAY/XIN Conf#: [id number] DID#: [id number]
--- NOTE | 2016-08-26 14:27 | CONS ---
DATE OF ADMISSION: 08/24/2016 DATE OF CONSULTATION: 08/25/2016 TYPE OF CONSULTATION: Pulmonary. REFERRING PHYSICIAN: Jenni Crockett MD REASON FOR CONSULTATION: Cardiovascular preop evaluation. CHIEF COMPLAINT: Status post fall with hip pain. HISTORY OF PRESENT ILLNESS: Thank you for this referral. History obtained from the patient who is a poor historian, extensive review of the chart, review of the old chart, discussion with physician and staff. This 89-year-old pleasant gentleman with history of coronary artery disease, congestive heart failure with normal systolic function, who was brought in from [facility] for hip pain. The patient apparently had pain a few days ago. There is no report of syncope or presyncope. In fa ct, the patient apparently has had a hip fracture and has been evaluated for hip surgery. Currently , is optimized from a cardiac standpoint. The patient denies any chest pain or pressure to me. Den ies any palpitation to me. Denies any dyspnea, PND, orthopnea to me. He is not able to give me muc h history, but old records were extensively reviewed. PAST MEDICAL HISTORY: History of coronary artery disease per review of the old chart, history of dy slipidemia, history of congestive heart failure with diastolic dysfunction with normal LV systolic f unction, history of diabetes, history of dementia. ALLERGIES: NO REPORTED ALLERGIES. SOCIAL HISTORY: Does not smoke or drink. Lives in a snf now. FAMILY HISTORY: No reported early coronary artery disease. MEDICATIONS: As per medication reconciliation, was personally extensively reviewed. REVIEW OF SYSTEMS: He denied all other except for above-mentioned, however, is a poor historian. PHYSICAL EXAMINATION: VITAL SIGNS: Temperature 98.1, heart rate of 94, blood pressure 130/73, respiration rate of 18, sat urating 95%. HEENT: Normocephalic, atraumatic. Thin gentleman, pupils are equal. CARDIOVASCULAR: Regular rate and rhythm, systolic murmur. PULMONARY: With no wheezes or rhonchi. GASTROINTESTINAL: Soft, nontender. EXTREMITIES: Status post fracture, but no edema. NEUROLOGIC: Awake, responds appropriately to person and place, but not to date. PSYCHIATRIC: Appears to be calm and pleasant. LABORATORY: WBC of 13.3, hemoglobin 10.7, platelets 223. Sodium 133, potassium 4.2, BUN of 28, cre atinine 1.05, glucose 125. EKG is still pending. Echo is still pending. Review of the old chart showed the patient's echocardiogram done about a yea r and a half ago on 04/04/2015, has shown ejection fraction of 55% at that time. Chest x-ray done last night showed left lateral 7th rib fracture with evidence of associated intrath oracic complication. Generalized and interstitial changes with lung parenchyma stable compare d to the 2015 x-ray. Brain CT shows atrophy, microangiopathy ischemic changes, bilateral frontal low attenuation subdural fluid collection consistent with probable left frontal , which is new. Mild mass effect. No acute intracranial hemorrhage. A hip x-ray showed acute closed commissure, communicated minimally displaced extracapsular intra____ _ fracture of the left femur to the mild varus distraction of the fractional segments. ASSESSMENT AND PLAN: 1. Cardiovascular preop evaluation. 2. Hip fracture. 3. Coronary artery disease. 4. History of congestive heart failure with diastolic dysfunction, currently appears to be well com pensated. 5. Hypertension. 6. Dementia. 7. Diabetes. 8. History of dyslipidemia. 9. Abnormal CT scan findings as above-mentioned. RECOMMENDATIONS: I have ordered an EKG and echocardiogram which is still pending. Previous echo sh owed normal LV systolic function. Will need a baseline EKG. Otherwise, no further cardiac workup w ould be indicated. The patient has multiple cardiac risk factors including history of coronary siena ry disease, congestive heart failure and poor exercise tolerance, which makes him at moderate risk o f cardiovascular event. However, he is currently optimized and no further cardiac workup would be i ndicated or felt to be beneficial to the patient at this point. Dictated By: TRISHA FALK MD AV/NTS Conf#: [id number] DID#: [id number] CC: JENNI CROCKETT MD;*EndCC*
--- NOTE | 2016-08-26 14:32 | HPN ---
Date/Time of Note Date/Time of Note DATE: 08/26/16 TIME: 14:31 Interval H&P Admission Note Pt. seen H&P reviewed: No system changes FARIHA SCHRADER MD August 26, 2016 14:32
[2016-08-26] MEDS ORDERED: POLYMYXIN/BACITRACIN 1L IRRIG ONE (14:36)
[2016-08-26] MEDS ORDERED: FENTAnyl 50 MCG/ML VIAL ONE (15:06)
[2016-08-26] MEDS ORDERED: ROCURONIUM 50 MG INJ ONE (16:22)
[2016-08-26] MEDS ORDERED: ETOMIDATE 20 MG INJ ONE (16:22)
[2016-08-26] MEDS ORDERED: LIDOCAINE 2% (SDV) 5 ML INJ ONE (16:22)
[2016-08-26] MEDS ORDERED: GLYCOPYRROLATE 0.4 MG INJ ONE (16:23)
[2016-08-26] MEDS ORDERED: NEOSTIGMINE 3 MG/3 ML SYRINGE ONE (16:23)
[2016-08-26] MEDS ORDERED: CEFAZOLIN 1 GM INJ ONE (16:29)
[2016-08-26] MEDS ORDERED: ONDANSETRON 4 MG INJ IV PRN (16:30)
[2016-08-26] MEDS ORDERED: morphine 2 MG INJ IV PRN (16:30)
[2016-08-26] MEDS ORDERED: CEFAZOLIN 1 GM/50 ML (PMX) 50 ML IVPB SCH (16:30)
[2016-08-26] MEDS ORDERED: HYDROCODONE/APAP (5/325) TAB PO PRN (16:30)
[2016-08-26] MEDS ORDERED: EPHEDrine SULFATE 50 MG/5 ML SYG IV PRN (16:30)
[2016-08-26] MEDS ORDERED: FENTAnyl 50 MCG/ML VIAL IV PRN (16:30)
[2016-08-26] MEDS ORDERED: NALOXONE (0.4 MG/ML) INJ IV PRN (16:30)
[2016-08-26] MEDS ORDERED: DIPHENHYDRAMINE 50 MG INJ IV PRN (16:30)
[2016-08-26] MEDS ORDERED: HYDROmorphONE (0.2 MG/ML) 10ML SYG IV PRN ×2 (16:30)
[2016-08-26] MEDS ORDERED: ASPIRIN (EC) 325 MG TAB PO ONE (16:30)
[2016-08-26] MEDS ORDERED: FUROSEMIDE 20 MG INJ ONE (16:43)
[2016-08-26] MEDS ORDERED: hydrALAzine 20 MG INJ IV PRN (17:00)
[2016-08-26] MEDS ORDERED: LABETALOL HCL 20MG INJ IV PRN (17:00)
[2016-08-26] MEDS ORDERED: FUROSEMIDE 20 MG INJ IV ONE (17:00)
[2016-08-26] MEDS ORDERED: ALBUTEROL 0.083% (NEB) 2.5 MG/3 ML AMP HHN STA (17:13)
[2016-08-26] MEDS ORDERED: ALBUTEROL 0.5% (NEB) 2.5 MG/0.5 ML AMP ONE (17:13)
--- NOTE | 2016-08-26 17:29 | OPR ---
DATE OF OPERATION: 08/26/2016 PREOPERATIVE DIAGNOSIS: Intertrochanteric fracture of the left hip, comminuted. POSTOPERATIVE DIAGNOSIS: Intertrochanteric fracture of the left hip, comminuted. PROCEDURE PERFORMED: Open reduction and internal fixation of the intertrochanteric fracture of the left hip. SURGEON: Selam Villela MD ANESTHESIA: General. PROCEDURE AND FINDINGS: Under anesthesia, the patient was placed in supine position upon the operat ing table. Usual manipulative reduction was carried out under fluoroscopic monitoring until an acce ptable alignment could be achieved. Usual prep and drape was done exposing the left hip and left leg. The intertrochanteric area was ap proached through the small lateral incision over the proximal portion of the left hip. After openin g fascia charley, tip of the greater trochanter was identified and through the this tip of the greater trochanter, intramedullary canal was entered with the guide drill. After confirming satisfactory po sition of the guide drill, opening was enlarged with the cannulated drill and the reamer guide was i ntroduced into the intramedullary canal. After proper adjustment and positioning, measurement was m [place] and it was my estimation that a 34 cm long, 10 mm wide intramedullary nail with a 125 degree ang le should be the choice. After reaming along the reamer guide, the selected intramedullary lisa was inserted. Again, after proper rotatory readjustment, guide pin for the lag screw was properly posit ioned and the measurement revealed that the proper length of the lag screw should be 90 mm. After r eaming along the guide pin, the proper lag screw was inserted and then utilizing compression device, compression was obtained at the fracture site prior to the locking of the lag screw. After locking of the lag screw and after confirming satisfactory alignment of the fracture and proper position of the fixation device, the insertion guides were all removed. After irrigation and hemostasis, closu re of the incision was carried out using 0 Vicryl for muscle and fascia and 2-0 Vicryl for subcutane ous tissues. Final skin closure was carried out with skin warren. Proper sterile dressings were a pplied. The patient tolerated the entire procedure very well and was sent to the recovery room in excellent condition. Dictated By: SELAM JAMES/XIN Conf#: [id number] DID#: [id number]
[2016-08-26 17:35] LABS: ADD SCAN DIFF NO
[2016-08-26 17:37] LABS: BASOPHILS % 0.2 % (0.0-2.0); EOSINOPHILS # 0.1 10^3/ul (0.0-0.5); EOSINOPHILS % 0.7 % (0.0-7.0); HEMATOCRIT 27.4 % (42.0-52.0); HEMOGLOBIN 8.9 g/dl (14.0-18.0); LYMPHOCYTES # 1.5 10^3/ul (0.8-2.9); MEAN CORPUSCULAR HEMOGLOBIN 29.7 pg (29.0-33.0); MEAN CORPUSCULAR HGB CONC 32.5 g/dl (32.0-37.0); MEAN CORPUSCULAR VOLUME 91.3 fl (82.0-101.0); MEAN PLATELET VOLUME 10.3 fl (7.4-10.4); MONOCYTE # 1.4 10^3/ul (0.3-0.9); MONOCYTES % 8.5 % (0.0-11.0); NEUTROPHIL # 13.6 10^3/ul (1.6-7.5); NEUTROPHILS % 80.3 % (39.0-77.0); PLATELET COUNT 234 10^3/UL (140-415); RED CELL DISTRIBUTION WIDTH 16.4 % (11.5-14.5); WHITE BLOOD COUNT 16.9 10^3/ul (4.8-10.8)
--- NOTE | 2016-08-26 17:57 | PN ---
DATE: 08/26/2016 CARDIOLOGY FOLLOWUP SUBJECTIVE: Discussed with the staff. Rhythm strip was reviewed. The patient remains in sinus rhy thm. No significant arrhythmia noted. No , chest pain or pressure. MEDICATIONS: Reviewed. PHYSICAL EXAMINATION: VITAL SIGNS: Temperature 98.1, heart rate of 80, blood pressure 114/64, respiratory rate of 24. HEENT: Normocephalic, atraumatic. No acute distress. CARDIOVASCULAR: Regular rate and rhythm. PULMONARY: No wheezes. GASTROINTESTINAL: Soft. EXTREMITIES: With no significant edema. NEUROLOGIC: Awake. LABORATORY DATA: WBC 11.5, hemoglobin 8.8, platelet 238. Sodium 131, potassium 4.1, BUN of 24, cre atinine 0.9, glucose 136. ASSESSMENT AND PLAN: 1. Cardiovascular preop evaluation. 2. Hip fracture. 3. Coronary artery disease. 4. History of congestive heart failure with diastolic dysfunction. 5. History of hypertension, under good control. 6. Diabetes. 7. History of dyslipidemia. RECOMMENDATIONS: Echo and EKG were personally reviewed. Awaiting surgery. No further cardiac work up would be needed. Dictated By: TRISHA FALK MD AV/NTS Conf#: [id number] DID#: [id number] CC: JENNI CROCKETT MD;*End*
[2016-08-26 18:01] LABS: POTASSIUM 4.7 mmol/L (3.5-5.1)
[2016-08-26 18:01] LABS: AADO2 Arterial 154.6 mmHg (7.0-24.0); Arterial Base Excess -2.2 mmol/L (-3.0-3); Arterial COHb 0.2 % (0.0-3.0); Arterial Fraction of Oxyhgb 98.2 % (93.0-99.0); Arterial HCO3 24.1 mmol/L (22.0-26.0); Arterial MetHb 0.2 % (0.0-1.5); Arterial Total Hemglobin 9.8 g/dl (12.0-18.0); Blood Gas IEPAP 20/8; MODE MASK - BIPAP
[2016-08-26 18:04] LABS: CREATININE 0.92 mg/dl (0.61-1.24)
[2016-08-26 18:05] LABS: CALCIUM 8.9 mg/dl (8.4-10.2)
--- NOTE | 2016-08-26 18:21 | RADRPT ---
PROCEDURE: XR Hip 1 Views. CLINICAL INDICATION: Status post left hip fracture fixation TECHNIQUE: AP view of the left hip was performed. COMPARISON: August 24, 2016 FINDINGS: There has been interval reduction and fixation of an intertrochanteric left hip fracture. Fracture fragments appear in near anatomic alignment. Intramedullary lisa is seen in the femur. Fixation scr ew projects through the proximal aspect of the lisa into the femoral head and neck. Osteopenia is pat ntified. No destructive bony lesions are observed. Moderate narrowing of the left hip joint is seen . Soft tissue air over the left hip is procedural in nature. IMPRESSION: Status post left hip fracture fixation. Fracture fragments are in near anatomic alignment. Osteopenia. Moderate osteoarthritis of the left hip. RPTAT: AA .Wojciech Leahy MD, Date Time Electronically viewed and signed by .Wojciech Leahy MD, on 08/26/2016 18:20 .P/
--- NOTE | 2016-08-26 18:23 | RADRPT ---
PROCEDURE: XR Chest 1 View. CLINICAL INDICATION: Shortness of breath, postop TECHNIQUE: AP view of the chest was obtained. COMPARISON: August 24, 2016 FINDINGS: The heart size is within normal limits. Calcified atherosclerosis is noted in the aorta. The lungs are hypoinflated. Diffuse interstitial prominence in both lungs appears unchanged. Scattered atele ctasis is seen in the bilateral lower lobes. No consolidations are identified. No pneumothorax is s een. Lateral left seventh rib fracture is stable. Diffuse osteopenia is seen. Degenerative changes are seen in the shoulders. IMPRESSION: Calcified atherosclerosis in the aorta. Hypoinflated lungs with stable diffuse interstitial prominence in both lungs. Scattered atelectasis in the bilateral lower lobes. Stable left seventh rib fracture. RPTAT: AA .Wojciech Leahy MD, MD Date Time Electronically viewed and signed by .Wojciech Leahy MD, MD on 08/26/2016 18:22 .P/
--- NOTE | 2016-08-26 18:23 | RADRPT ---
PROCEDURE: X-ray fluoroscopy guidance CLINICAL INDICATION: Left hip fracture fixation, fluoroscopic guidance. TECHNIQUE: Fluoroscopic guidance was utilized for an intraoperative procedure. COMPARISON: None available FINDINGS: Fluoroscopic guidance was utilized for and intraoperative procedure. 116 seconds of fluoroscopy time was utilized for the procedure. 15 x-ray images were obtained during the procedure in progress. Fin al images demonstrate fracture fragments in near anatomic alignment. IMPRESSION: X-ray fluoroscopic guidance utilized for intraoperative procedure. Final images demonstrate left hip fracture fragments in near anatomic alignment. Please see procedure note for details. RPTAT: AA .Wojciech Leahy MD, MD Date Time Electronically viewed and signed by .Wojciech Leahy MD, MD on 08/26/2016 18:23 .P/
[2016-08-26] MEDS: DEXTROSE 5%-LR 1,000 ML IV SCH (18:59)
[2016-08-26] MEDS: morphine 2 MG INJ IV PRN (20:16)
[2016-08-26] MEDS: GABAPENTIN 300 MG CAP PO SCH (21:58)
[2016-08-26] MEDS: LATANOPROST 0.005% 2.5 ML OPH BOTH EYES SCH (23:27)
[2016-08-27] VITALS (36 sets, daily range): BP systolic 90–147; BP diastolic 53–107; PULSE 84–110; RESP 19–36
[2016-08-27] MEDS: morphine 2 MG INJ IV PRN (05:11)
[2016-08-27 05:31] LABS: ADD SCAN DIFF NO
[2016-08-27 05:57] LABS: MAGNESIUM 1.7 mg/dl (1.7-2.5); PHOSPHORUS 3.7 mg/dl (2.5-4.9)
[2016-08-27 06:01] LABS: BASOPHILS % 0.3 % (0.0-2.0); EOSINOPHILS # 0.1 10^3/ul (0.0-0.5); EOSINOPHILS % 0.5 % (0.0-7.0); HEMATOCRIT 24.8 % (42.0-52.0); HEMOGLOBIN 8.1 g/dl (14.0-18.0); LYMPHOCYTES # 1.1 10^3/ul (0.8-2.9); MEAN CORPUSCULAR HEMOGLOBIN 29.8 pg (29.0-33.0); MEAN CORPUSCULAR HGB CONC 32.7 g/dl (32.0-37.0); MEAN CORPUSCULAR VOLUME 91.2 fl (82.0-101.0); MEAN PLATELET VOLUME 10.6 fl (7.4-10.4); MONOCYTES % 9.6 % (0.0-11.0); NEUTROPHIL # 8.1 10^3/ul (1.6-7.5); NEUTROPHILS % 77.4 % (39.0-77.0); PLATELET COUNT 257 10^3/UL (140-415); RED BLOOD COUNT 2.72 10^6/ul (4.70-6.10); RED CELL DISTRIBUTION WIDTH 16.3 % (11.5-14.5); WHITE BLOOD COUNT 10.4 10^3/ul (4.8-10.8)
[2016-08-27 06:06] LABS: CALCIUM 8.1 mg/dl (8.4-10.2); CREATININE 0.98 mg/dl (0.61-1.24); POTASSIUM 4.1 mmol/L (3.5-5.1)
[2016-08-27] MEDS: PANTOPRAZOLE (EC) 40 MG TAB PO SCH (07:09)
[2016-08-27] MEDS: INSULIN ASPART [NOVOLOG] 3 ML PEN SC SCH ×4 (07:35→21:00)
[2016-08-27] MEDS: DEXTROSE 5%-LR 1,000 ML IV SCH (09:00)
[2016-08-27] MEDS: RANOLAZINE (SR) 500 MG TAB PO SCH ×2 (09:19→21:15)
[2016-08-27] MEDS: DORZOLAMIDE/TIMOLOL 10 ML OPH BOTH EYES SCH (09:19)
[2016-08-27] MEDS: ASPIRIN (EC) 81 MG TAB PO SCH (09:20)
[2016-08-27] MEDS: MEMANTINE 10 MG TAB PO SCH (09:20)
[2016-08-27] MEDS: CITALOPRAM 20 MG TAB PO SCH (09:20)
[2016-08-27] MEDS: AMIODARONE 200 MG TAB PO SCH (09:20)
[2016-08-27] MEDS: ENALAPRIL 5 MG TAB PO SCH (09:21)
[2016-08-27] MEDS: DONEPEZIL 10 MG TAB PO SCH (09:24)
[2016-08-27] MEDS: HEPARIN 5,000 UNIT/0.5 ML VIAL SC SCH ×2 (09:26→21:21)
--- NOTE | 2016-08-27 13:01 | PN ---
DATE: 08/27/2016 SUBJECTIVE: The patient is status post left hip ORIF. The patient tolerated the procedure well. P ostoperatively he was slightly tachycardic, so he was transferred to the intensive care unit and lance johanna briefly on BiPAP, per report. The patient is doing fine. He is now off oxygen, on room air. I had a meeting with the daughter and granddaughter and explained the patient's condition and plan of care. The patient appears to be stable. Noted a decreased in this patient's hemoglobin to 8.1. PHYSICAL EXAMINATION: VITAL SIGNS: Temperature 99 axillary, pulse 86, respirations up to 30, blood pressure 100/66, satur ations 96%. GENERAL: The patient is in no acute distress. Thin, pale. CARDIOVASCULAR: S1 and S2. Regular rate and rhythm. LUNGS: Clear bilaterally. ABDOMEN: Soft, nontender. EXTREMITIES: No clubbing, cyanosis, or edema. Left hip area a bandage is in place. No evidence of bleeding. LABORATORY: White count is 10.4, now normal. Hemoglobin 8.1, hematocrit 24.8, platelet count is 25 7, neutrophils 77%, lymphocytes 11%. Chemistry: Sodium 133, potassium 4.1, chloride 100, bicarbona te 26, BUN is 19, creatinine 0.98, glucose of 158. Last glucoses were 133 and 133. UA on admission was marginally positive and culture shows mixed gram-positive organisms. MRSA of the nares is nega tive. Chest x-ray done on 09/07/2016, yesterday postoperatively, shows calcified atherosclerosis in the aorta, hyperinflated lungs, stable diffuse interstitial prominence in both lungs, scattered ate lectasis in the bilateral lower lobes and stable left 7th rib fracture. MEDICATIONS: Include: 1. Naloxone p.r.n. 2. Morphine p.r.n. 3. Pryor p.r.n. 4. Celexa 10 mg daily. 5. Xalatan drops at bedtime. 6. Neurontin 300 at bedtime. 7. Ceftriaxone 1 gram q.24h. 8. Amiodarone 100 mg daily. 9. Aspirin 81 mg daily. 10. Coreg 3.125 daily. 11. Aricept 10 mg daily. 12. as directed daily. 13. Vasotec 5 mg daily. 14. Namenda 10 mg daily. 15. Ranexa 500 q.12. 16. Protonix 40 mg daily. 17. Heparin 5000 units subcutaneous q.12. 18. Hypoglycemia protocol. 19. Zofran p.r.n. 20. Tylenol p.r.n. 21. Pryor p.r.n. 22. Morphine p.r.n. 23. Colace p.r.n. 24. Milk of Magnesia p.r.n. 25. Ambien p.r.n. ASSESSMENT AND PLAN: This is an 89-year-old male with a history of coronary artery disease , diabetes mellitus, hypertension, and dementia, who presented with an unfortunate fall and was foun d to have a left hip fracture. 1. Left hip fracture status post open reduction internal fixation. Postoperatively doing fine. Th e patient to be placed on deep vein thrombosis prophylaxis, incentive spirometry, and physical thera py per Dr. Villela. 2. Anemia. The patient was transfused 1 unit of PRBC postoperatively in a patient with a cardiac c ondition. 3. Diabetes mellitus. Continue insulin sliding scale. The patient's glucose levels are 133 and 13 3. 4. Diet to be advanced to a soft mechanical diet as tolerated. 5. History of dementia. Continue supportive care. 6. Glaucoma. Continue all eyedrops. 7. Urinary tract infection. Continue Rocephin. White count is normal. 8. I appreciate cardiology's input and followup. 9. Continue Protonix for gastrointestinal prophylaxis. We will follow. Dictated By: JENNI RAY/XIN Conf#: [id number] DID#: [id number]
[2016-08-27] MEDS: LATANOPROST 0.005% 2.5 ML OPH BOTH EYES SCH ×2 (21:00→22:01)
[2016-08-27] MEDS: GABAPENTIN 300 MG CAP PO SCH (21:15)
[2016-08-28 05:10] LABS: ADD SCAN DIFF NO
[2016-08-28 05:14] LABS: BASOPHILS % 0.2 % (0.0-2.0); EOSINOPHILS # 0.1 10^3/ul (0.0-0.5); EOSINOPHILS % 0.7 % (0.0-7.0); HEMOGLOBIN 8.9 g/dl (14.0-18.0); LYMPHOCYTES # 1.4 10^3/ul (0.8-2.9); LYMPHOCYTES % 12.1 % (15.0-51.0); MEAN CORPUSCULAR HEMOGLOBIN 29.6 pg (29.0-33.0); MEAN CORPUSCULAR HGB CONC 34.2 g/dl (32.0-37.0); MEAN CORPUSCULAR VOLUME 86.4 fl (82.0-101.0); MEAN PLATELET VOLUME 10.6 fl (7.4-10.4); MONOCYTE # 1.1 10^3/ul (0.3-0.9); MONOCYTES % 9.9 % (0.0-11.0); NEUTROPHIL # 8.7 10^3/ul (1.6-7.5); NEUTROPHILS % 75.5 % (39.0-77.0); NUCLEATED RED BLOOD CELLS% 0.2 /100WBC (0.0-0.0); PLATELET COUNT 234 10^3/UL (140-415); RED BLOOD COUNT 3.01 10^6/ul (4.70-6.10); RED CELL DISTRIBUTION WIDTH 16.1 % (11.5-14.5); WHITE BLOOD COUNT 11.6 10^3/ul (4.8-10.8)
[2016-08-28 05:34] LABS: CALCIUM 7.7 mg/dl (8.4-10.2); CREATININE 1.03 mg/dl (0.61-1.24); POTASSIUM 3.8 mmol/L (3.5-5.1)
[2016-08-28 06:14] LABS: MAGNESIUM 1.9 mg/dl (1.7-2.5); PHOSPHORUS 2.9 mg/dl (2.5-4.9)
[2016-08-28] MEDS: PANTOPRAZOLE (EC) 40 MG TAB PO SCH (06:56)
[2016-08-28] MEDS: INSULIN ASPART [NOVOLOG] 3 ML PEN SC SCH ×4 (07:50→21:00)
[2016-08-28 08:43] VITALS: BP 134/65; RESP 16
[2016-08-28] MEDS: DORZOLAMIDE/TIMOLOL 10 ML OPH BOTH EYES SCH (09:04)
[2016-08-28] MEDS: MEMANTINE 10 MG TAB PO SCH (09:04)
[2016-08-28] MEDS: RANOLAZINE (SR) 500 MG TAB PO SCH ×2 (09:06→21:20)
[2016-08-28] MEDS: ASPIRIN (EC) 81 MG TAB PO SCH (09:06)
[2016-08-28] MEDS: AMIODARONE 200 MG TAB PO SCH (09:06)
[2016-08-28] MEDS: CITALOPRAM 20 MG TAB PO SCH (09:06)
[2016-08-28] MEDS: DONEPEZIL 10 MG TAB PO SCH (09:07)
[2016-08-28] MEDS: ENALAPRIL 5 MG TAB PO SCH (09:07)
[2016-08-28] MEDS: HEPARIN 5,000 UNIT/0.5 ML VIAL SC SCH ×2 (09:15→21:34)
--- NOTE | 2016-08-28 13:02 | PN ---
DATE: 08/28/2016 SUBJECTIVE: Patient seen and was transferred to the medical/surgical floor. Patient appears to be comfortable with no complaints, no acute issues. The patient is status post 1 unit of PRBC. H and H went from a hemoglobin of 8.1 to 8.9. PHYSICAL EXAMINATION: VITAL SIGNS: T-max 99. Current temperature 98.3, pulse 79, respirations 16, blood pressure 134/65, saturation 97% on room air. GENERAL: The patient in no acute distress, thin, pale. CARDIOVASCULAR: S1 and S2, regular rate. LUNGS: Decreased bilaterally, otherwise clear. ABDOMEN: Soft, nontender. EXTREMITIES: No clubbing, cyanosis, or edema. No bleeding noted from the left hip. Patient appear s to be comfortable. LABORATORY DATA: White count is 11.6, hemoglobin 8.9, hematocrit 26, platelet count 234, neutrophil s 76%, lymphocytes 12%. Sodium 132, potassium 3.8, chloride 100, bicarbonate 26, BUN is 24, creatin ine 1.03, glucose 123. UA on admission was marginally positive nitrites, but leukocyte esterase was negative. WBC 5 to 10. Culture shows mixed gram-positive organism 20,000 to 30,000. MRSA screeni ng is in process. The first one actually was negative. No new radiographic imaging. MEDICATIONS: Reviewed and include: 1. Narcan p.r.n. 2. Morphine p.r.n. 3. Blodgett p.r.n. 4. Celexa 10 mg daily. 5. Xalatan eyedrops at both sides. 6. Neurontin 300 nightly. 7. Rocephin 1 gram q.24h. 8. Amiodarone 100 mg daily. 9. Aspirin 81 mg daily. 10. Coreg 3.125 daily. 11. Aricept 10 mg daily. 12. Cosopt eyedrops daily. 13. Vasotec 5 mg daily. 14. Namenda 10 mg daily. 15. 16. Insulin as per sliding scale. 17. Protonix 40 mg daily. 18. Heparin 5000 units subq q.12h. 19. Hypoglycemia protocol. 20. Zofran p.r.n. 21. Tylenol p.r.n. 22. Blodgett p.r.n. 23. Morphine p.r.n. 24. Colace p.r.n. 25. Milk of Magnesia p.r.n. 26. Ambien p.r.n. ASSESSMENT AND PLAN: This is an 89-year-old male with history of coronary artery disease, diabetes mellitus, hypertension, dementia, who presents with unfortunate fall, was found to have lef t hip fracture. 1. Left hip fracture status post open reduction internal fixation, day number 2 postoperatively. S tatus post 1 unit of PRBC. Continue to monitor H and H. Continue deep venous thrombosis prophylaxi s with heparin. Continue incentive spirometer will discontinue Arnold catheter and monitor postvoid residual. 2. Anemia, status post 1 unit of PRBC. Monitor hemoglobin and hematocrit. Transfusion p.r.n. If H and H drops further, we may consider another unit prior to discharge. 3. Diabetes mellitus. Glucose levels are 136 159 and 170 the last 3 readings. Hemoglobin A1c is 5 .5 and overall his diabetes is well controlled. 4. Malnutrition with a BMI of 19.9. Will add Ensure and monitor the patient's p.o. intake. 5. Urinary tract infection. Remains on Rocephin. 6. Glaucoma. Continue all eyedrops. 7. Physical therapy as tolerated. 8. Dementia. Continue Aricept. 9. Depression, on Celexa. 10. Continue Protonix for GI prophylaxis. 11. Discharge planning either to acute rehab or [facility] facility, will discuss with family. We will continue to follow his progress. Dictated By: JENNI RAY/XIN Conf#: [id number] DID#: [id number]
[2016-08-28] MEDS: CEFTRIAXONE 1 GM/50 ML (PMX) 50 ML IVPB SCH (13:52)
[2016-08-28 19:23] VITALS: BP 157/77; RESP 20
[2016-08-28] MEDS: GABAPENTIN 300 MG CAP PO SCH (21:20)
[2016-08-28] MEDS: morphine 2 MG INJ IV PRN (21:42)
[2016-08-29 05:09] LABS: ADD SCAN DIFF NO
[2016-08-29 05:15] LABS: BASOPHILS % 0.2 % (0.0-2.0); EOSINOPHILS # 0.2 10^3/ul (0.0-0.5); EOSINOPHILS % 1.9 % (0.0-7.0); HEMATOCRIT 25.9 % (42.0-52.0); HEMOGLOBIN 8.6 g/dl (14.0-18.0); LYMPHOCYTES # 1.6 10^3/ul (0.8-2.9); LYMPHOCYTES % 13.7 % (15.0-51.0); MEAN CORPUSCULAR HEMOGLOBIN 29.4 pg (29.0-33.0); MEAN CORPUSCULAR HGB CONC 33.2 g/dl (32.0-37.0); MEAN CORPUSCULAR VOLUME 88.4 fl (82.0-101.0); MEAN PLATELET VOLUME 10.4 fl (7.4-10.4); MONOCYTE # 1.2 10^3/ul (0.3-0.9); MONOCYTES % 9.8 % (0.0-11.0); NEUTROPHIL # 8.6 10^3/ul (1.6-7.5); PLATELET COUNT 261 10^3/UL (140-415); RED BLOOD COUNT 2.93 10^6/ul (4.70-6.10); RED CELL DISTRIBUTION WIDTH 16.1 % (11.5-14.5)
[2016-08-29 05:33] LABS: POTASSIUM 3.6 mmol/L (3.5-5.1)
[2016-08-29 05:35] LABS: CREATININE 0.8 mg/dl (0.61-1.24)
[2016-08-29 05:36] LABS: CALCIUM 7.4 mg/dl (8.4-10.2); PHOSPHORUS 2.3 mg/dl (2.5-4.9)
[2016-08-29 05:37] LABS: MAGNESIUM 2.1 mg/dl (1.7-2.5)
[2016-08-29] MEDS: PANTOPRAZOLE (EC) 40 MG TAB PO SCH (06:22)
[2016-08-29] MEDS: INSULIN ASPART [NOVOLOG] 3 ML PEN SC SCH ×4 (07:50→21:00)
[2016-08-29 08:00] VITALS: BP 147/71; RESP 16
[2016-08-29] MEDS: DONEPEZIL 10 MG TAB PO SCH (09:00)
[2016-08-29] MEDS: DORZOLAMIDE/TIMOLOL 10 ML OPH BOTH EYES SCH (10:02)
[2016-08-29] MEDS: ENALAPRIL 5 MG TAB PO SCH (10:03)
[2016-08-29] MEDS: ASPIRIN (EC) 81 MG TAB PO SCH (10:04)
[2016-08-29] MEDS: MEMANTINE 10 MG TAB PO SCH (10:04)
[2016-08-29] MEDS: CITALOPRAM 20 MG TAB PO SCH (10:05)
[2016-08-29] MEDS: AMIODARONE 200 MG TAB PO SCH (10:05)
[2016-08-29] MEDS: RANOLAZINE (SR) 500 MG TAB PO SCH ×2 (10:05→21:23)
[2016-08-29] MEDS: HEPARIN 5,000 UNIT/0.5 ML VIAL SC SCH ×2 (10:07→21:24)
[2016-08-29] MEDS ORDERED: POTASSIUM PHOSPHATE 20 MEQ in SOD CHLORIDE 0.9% 250 ML IVPB SCH (15:00)
--- NOTE | 2016-08-29 17:49 | PN ---
DATE: 08/29/2016 SUBJECTIVE: Patient seen. Noted physical therapy recommendations. The patient appears to be awake with no complaints. I left a message with the daughter, her name is Galina. PHYSICAL EXAMINATION: VITAL SIGNS: Temperature is 98.1, afebrile, pulse 86, respirations 16, blood pressure 147/71, satur ation is 96% on room air. GENERAL: No acute distress. The patient is frail, pale. CARDIOVASCULAR: S1, S2. LUNGS: Clear. ABDOMEN: Soft, nontender. EXTREMITIES: No clubbing, cyanosis, or edema. LABORATORY DATA: White count is 12, remains slightly high, hemoglobin 8.6, hematocrit 26, platelet count 261, neutrophils 72%, lymphocytes 14%. Chemistry: Sodium is 135, potassium 3.6, chloride 98, bicarbonate 27, BUN is 21, creatinine 0.8 and glucose of 120. Last glucose level is 131 and 132. Phosphorus slightly low at 2.3. Magnesium 2.1. Urine culture just showed mixed gram-positive organ ism 20,000 to 30,000. MRSA screening negative. MEDICATIONS: Reviewed include: 1. Narcan p.r.n. 2. Morphine p.r.n. 3. [place] p.r.n. 4. Celexa 10 mg daily. 5. Xalatan eyedrops at bedtime. 6. Neurontin 300 7. Rocephin 1 gram q.24h. 8. Amiodarone 100 daily. 9. Aspirin 81 mg daily. 10. Coreg 3.125 daily. 11. Aricept 10 mg daily. 12. Cosopt daily. 13. Vasotec 5 mg daily. 14. Namenda 10 mg daily. 15. Ranexa 500 q.12h. 16. Insulin aspart per sliding scale. 17. Protonix 40 mg daily. 18. Heparin 5000 units subq q.12h. for deep venous thrombosis protocol. 19. Zofran p.r.n. 20. Tylenol p.r.n. 21. Colace p.r.n. 22. Milk of magnesia. 23. Ambien p.r.n. ASSESSMENT AND PLAN: This is an 89-year-old male with history of coronary artery disease, diabetes mellitus, hypertension, dementia who presented with unfortunate fall, was found to have a l eft hip fracture. 1. Postoperative left hip open reduction internal fixation day #3. Status post 1 unit of packed r ed blood cells. Hemoglobin and hematocrit slightly low. Continue to observe. Continue and deep ve nous thrombosis prophylaxis and gastrointestinal prophylaxis, incentive spirometer. Clayton was remov ed with no post-void residual noted. 2. Anemia. Continue to monitor hemoglobin and hematocrit. Start the patient on iron supplements. Check iron panel, B12, folic acid, retic and send stool for occult blood. 3. Diabetes mellitus. Glucose levels are good. Recent hemoglobin A1c is 5.5. 4. Malnutrition. Encourage him to eat. Now has Glucerna in his current diet. Monitor p.o. intake . 5. Urinary tract infection. Urine culture was otherwise unremarkable. We will discontinue Rocephi n. Follow up WBC. Follow up fevers. 6. Continue aspiration precautions. 7. Glaucoma. Continue all eyedrops. 8. Continue physical therapy as tolerated. DISPOSITION: 1. To snf facility needs to be planned. 2. Dementia on Aricept. 3. Depression, on Celexa. 4. I left a message with his daughter. Overall, long-term prognosis remains guarded secondary to m alnutrition, dementia and multiple medical problems. We will follow. Dictated By: JENNI RAY/XIN Conf#: [id number] DID#: [id number]
[2016-08-29 19:06] VITALS: BP 168/81; RESP 20
--- NOTE | 2016-08-29 20:19 | PN ---
DATE: 08/29/2016 CARDIOLOGY FOLLOWUP SUBJECTIVE: Discussed with the staff. The patient with no chest pain or pressure. No palpitation. Has mild hip pain. MEDICATIONS: Reviewed. PHYSICAL EXAMINATION: VITAL SIGNS: Temperature 98.4, heart rate of 86, blood pressure 147/71, respiratory rate of 16. HEENT: Normocephalic, atraumatic. Elderly gentleman. CARDIOVASCULAR: Regular rate and rhythm now with systolic murmur. PULMONARY: Anteriorly with no wheezes, with minimal rhonchi at the base. GASTROINTESTINAL: Soft, nontender. EXTREMITIES: With no significant edema. No bleeding noted on the left hip. PSYCHIATRIC: Appears to be calm. NEUROLOGIC: Awake, alert. Responds appropriately. LABORATORY: WBC of 12, hemoglobin 8.6, platelets 261. Sodium 135, potassium 3.6, BUN of 21, creati nine 0.8, glucose of 120, mag is 2.1. ASSESSMENT AND PLAN: 1. Hip fracture status post surgery. 2. History of coronary artery disease, currently stable with no angina. 3. History of congestive heart failure secondary to diastolic dysfunction, currently appears to be euvolemic and stable. 4. Hypertension under good control. 5. Diabetes. 6. History of dyslipidemia. RECOMMENDATIONS: We will continue with the current cardiac care. Transfusion has been given alread y. Blood pressure currently remains stable. Continue postop care. Electrolytes including potassiu m to be replaced as needed. Aspirin and Coreg will be continued as tolerated. DVT prophylaxis as p er internal medicine and ortho. Dictated By: TRISHA FALK MD AV/NTS Conf#: [id number] DID#: [id number] CC: JENNI CROCKETT MD;*EndCC*
[2016-08-29] MEDS: GABAPENTIN 300 MG CAP PO SCH (21:23)
[2016-08-29] MEDS: LATANOPROST 0.005% 2.5 ML OPH BOTH EYES SCH (21:24)
[2016-08-29 22:00] VITALS: BP 139/65; PULSE 83
[2016-08-30] MEDS: PANTOPRAZOLE (EC) 40 MG TAB PO SCH (05:50)
[2016-08-30 06:01] LABS: IRON 52 ug/dl (35-150)
[2016-08-30 06:10] LABS: TOTAL IRON BINDING CAPACITY 200 ug/dl (241-421)
[2016-08-30 06:13] LABS: ADD SCAN DIFF NO
[2016-08-30 06:14] LABS: CALCIUM 7.6 mg/dl (8.4-10.2); CREATININE 0.73 mg/dl (0.61-1.24)
[2016-08-30 06:15] LABS: BASOPHILS % 0.3 % (0.0-2.0); EOSINOPHILS # 0.3 10^3/ul (0.0-0.5); EOSINOPHILS % 2.7 % (0.0-7.0); HEMATOCRIT 26.5 % (42.0-52.0); HEMOGLOBIN 9.1 g/dl (14.0-18.0); LYMPHOCYTES # 1.5 10^3/ul (0.8-2.9); LYMPHOCYTES % 12.9 % (15.0-51.0); MEAN CORPUSCULAR HEMOGLOBIN 30.5 pg (29.0-33.0); MEAN CORPUSCULAR HGB CONC 34.3 g/dl (32.0-37.0); MEAN CORPUSCULAR VOLUME 88.9 fl (82.0-101.0); MEAN PLATELET VOLUME 10.4 fl (7.4-10.4); MONOCYTES % 8.5 % (0.0-11.0); NEUTROPHIL # 8.8 10^3/ul (1.6-7.5); PLATELET COUNT 313 10^3/UL (140-415); RED BLOOD COUNT 2.98 10^6/ul (4.70-6.10); RETICULOCYTE COUNT % 4.3 % (0.5-1.5); WHITE BLOOD COUNT 11.9 10^3/ul (4.8-10.8)
[2016-08-30 07:08] LABS: FOLATE 10.1 ng/ml (2.8-20.0)
[2016-08-30] MEDS: INSULIN ASPART [NOVOLOG] 3 ML PEN SC SCH ×3 (07:50→17:55)
[2016-08-30 07:56] VITALS: BP 151/73; RESP 16
[2016-08-30] MEDS: ENALAPRIL 5 MG TAB PO SCH (08:39)
[2016-08-30] MEDS: DORZOLAMIDE/TIMOLOL 10 ML OPH BOTH EYES SCH (08:39)
[2016-08-30] MEDS: ASPIRIN (EC) 81 MG TAB PO SCH (08:40)
[2016-08-30] MEDS: DONEPEZIL 10 MG TAB PO SCH (08:40)
[2016-08-30] MEDS: RANOLAZINE (SR) 500 MG TAB PO SCH (08:40)
[2016-08-30] MEDS: CITALOPRAM 20 MG TAB PO SCH (08:40)
[2016-08-30] MEDS: AMIODARONE 200 MG TAB PO SCH (08:40)
[2016-08-30] MEDS: MEMANTINE 10 MG TAB PO SCH (08:40)
[2016-08-30] MEDS: HEPARIN 5,000 UNIT/0.5 ML VIAL SC SCH (08:47)
[2016-08-30] MEDS ORDERED: FERROUS SULFATE (EC) 325 MG TAB PO SCH (09:00)
--- NOTE | 2016-08-30 13:41 | PDOCDIS ---
Discharge Instructions CONDITION Patient Condition: Stable HOME CARE INSTRUCTIONS: Special Diet: Mechanical soft diet ACTIVITY: Activity Restrictions: Slowly Increase Activity FOLLOW UP/APPOINTMENTS Appointments transfer to Acute Rehab at [facility], see reconciliation, fall and aspiration precautions please. JENNI CROCKETT MD August 30, 2016 13:41
--- NOTE | 2016-08-30 14:32 | DS ---
DATE OF ADMISSION: 08/24/2016 DATE OF DISCHARGE: 08/30/2016 Plan to discharge to the acute rehab at [facility] on 08/30/2016 REASON FOR ADMISSION: Left hip fracture, status post fall. HOSPITAL COURSE: The patient is an 89-year-old male with history of CHF, diastolic dysfunc tion, heart failure, diabetes mellitus type 2, coronary artery disease, dementia, hypertension, jesus roesophageal reflux disease, who was recently admitted to the outside hospital secondary to fall. Bogdan frey received physical therapy and then transferred to the shelter facility at [facility]. Unfortunately, he sustained another fall and clinically appeared to have a fracture. I sent him t o the hospital as x-rays revealed acute comminuted intertrochanteric fracture of the left hip. I co nsulted the youth pastor specialist for clearance and consulted Dr. Fabiana Villela, [facility]. The patient underwent an echocardiogram which showed ejection fraction is 50% with stage I diast olic dysfunction. The patient proceeded with surgery as a moderate risk surgery. On 08/26/2016, jolanta garrett underwent ORIF of the intertrochanteric fracture of the left hip. The patient tolerated the p rocedure well. Postop he received a unit of PRBC. Diet was advanced. Arnold was removed and the jolanta garrett was placed on blood thinners. I empirically started him initially on Rocephin for possible UTI as his urine was marginally positive. Urine culture just showed mixed gram-positive organism 20,00 0 to 30,000 and I stopped his antibiotics. The patient is eating. He is a somewhat picky eater, as he unfortunately has malnutrition with a BMI of 19.9. The patient was seen by physical therapy as he required increased assist with mobility, appears to be a little bit more alert. He continues to be incontinent of urine. We will continue to work with patient ____. I continue to [facility]. I referred him to the rehab at [facility] and the patient will be transferred there with the following medications: 1. Tylenol 650 q.6h. p.r.n. for mild pain. 2. Amiodarone 100 mg daily. 3. Aspirin 81 mg daily. 4. Coreg 3.125. will make it b.i.d. dosing. 5. Celexa 10 mg daily. 6. Colace 100 q 12. 7. Aricept 10 mg daily. 8. Cosopt eyedrops as directed. 9. Vasotec 5 mg daily. 10. Ferrous sulfate 325 daily. 11. Gabapentin 300 mg at night as scheduled. 12. Hypoglycemia protocol. 13. Heparin 5000 units subcutaneous q.12h. 14. Greene 5/325 q.6h. p.r.n. for pain. 15. Insulin aspart per sliding scale. 16. Xalatan eyedrops as directed daily. 17. Milk of magnesia daily as needed. 18. Namenda 10 mg daily. 19. Morphine p.r.n. for pain. 20. Zofran 4 mg IV q.4h. p.r.n. nausea and vomiting. 21. Protonix 40 mg daily. 22. Ranexa 500 mg q.12h. 23. Ambien 5 mg at bedtime p.r.n. for insomnia. 24. We can resume the patient's metformin 500 mg daily. 25. Risperidone 0.25 at night, he took before. FINAL DIAGNOSES: 1. Left hip fracture status post open reduction internal fixation. 2. History of congestive heart failure, diastolic dysfunction, compensated. 3. History of coronary artery disease. 4. Dementia. 5. Anemia, as he has iron deficiency anemia and anemia of chronic disease. 6. Status post 1 unit of packed red blood cells, status post surgery. 7. Leukocytosis, mild. 8. Rule out urinary tract infection. 9. Diabetes mellitus, well controlled, with hemoglobin A1c of 5.5. 10. Malnutrition. 11. Glaucoma. 12. Hypertension. 13. Constipation. I have been in touch with family members on a regular basis throughout this hospitalization. DISPOSITION: The patient will be transferred to the acute rehab at [facility]. DIET: Soft mechanical 2 g sodium. ACTIVITY: With physical therapy as tolerated. Fall precautions, aspiration precautions. We will f ollow him closely. Dictated By: JENNI RAY/XIN Conf#: [id number] DID#: [id number]
== END 2016-08-30 19:15 | DRG 481 ==
LOC: E/R 20:44 → MS4 22:19 → ICU 08-26 17:42 → MS1 08-27 19:00
PROVIDERS: ADMIT Internal Medicine; ATTEND Internal Medicine
PROC: 0QS704Z Reposition Left Upper Femur with Internal Fixation Device, Open Approach (ICD-10-PCS; principal; 2016-08-26 14:30)
PROC: 30233N1 Transfusion of Nonautologous Red Blood Cells into Peripheral Vein, Percutaneous Approach (ICD-10-PCS; 2016-08-27)
DX: S72.142A Displaced intertrochanteric fracture of left femur, initial encounter for closed fracture (principal); E87.1 Hypo-osmolality and hyponatremia; E46 Unspecified protein-calorie malnutrition; E11.8 Type 2 diabetes mellitus with unspecified complications; F03.90 Unspecified dementia, unspecified severity, without behavioral disturbance, psychotic disturbance, mood disturbance, and anxiety; I50.30 Unspecified diastolic (congestive) heart failure; R13.10 Dysphagia, unspecified; N39.0 Urinary tract infection, site not specified; Z68.1 Body mass index [BMI] 19.9 or less, adult; F99 Mental disorder, not otherwise specified; E86.0 Dehydration; I25.10 Atherosclerotic heart disease of native coronary artery without angina pectoris; H40.9 Unspecified glaucoma; I10 Essential (primary) hypertension; K59.00 Constipation, unspecified; D53.9 Nutritional anemia, unspecified; E78.5 Hyperlipidemia, unspecified; N40.0 Benign prostatic hyperplasia without lower urinary tract symptoms; W18.30XA Fall on same level, unspecified, initial encounter; Y92.129 Unspecified place in nursing home as the place of occurrence of the external cause; Z79.82 Long term (current) use of aspirin
CPT/HCPCS: 36430; 36600; 70450; 71010; 72170; 73500; 73510; 73530; 73550; 80048; 80053; 81001; 81003; 82270; 82607; 82746; 82803; 82962; 83036; 83540; 83735; 84100; 85025; 85045; 85610; 85730; 86850; 86900; 86901; 86920; 87081; 87086; 93005; 93306; 94660; 94664; 96374; 97110; 97162; 97530; J1940; C1713; J0690; J0696; J1644; J1815; J2270; J2710; J3010; J7042; J7050; J7121; P9016

== ENCOUNTER 2016-08-30 17:32 | Inpatient (IN) | payer MEDICARE, OTHER ==
[~2016-08-30] VITALS: Ht 160 cm; Wt 52.3 kg
[~2016-08-30 17:32] MED LIST changes: +AMIO100T4 PO; +BIMA2.5D BOTH EYES; -CLOP75TA27 PO; +DORZ10DR6 BOTH EYES; -GLYC1SUP92 PR; +MEMA10TA16 PO; -METR500T14 PO; -POLY17PO6 PO; +RANO500T2 PO; +RISP0.253 PO
[2016-08-30 20:00] VITALS: BP 171/77; RESP 18
[2016-08-30] MEDS ORDERED: ZOLPIDEM 5 MG TAB PO PRN (21:00)
[2016-08-30] MEDS ORDERED: GLUCAGON 1 MG INJ IM PRN (21:00)
[2016-08-30] MEDS ORDERED: DEXTROSE 50% 50 ML SYRINGE IV PRN ×2 (21:00)
[2016-08-30] MEDS ORDERED: GLUCOSE GEL 15 GRAM TUBE PO PRN ×2 (21:00)
[2016-08-30] MEDS ORDERED: morphine 2 MG INJ IV PRN (21:00)
[2016-08-30] MEDS ORDERED: ONDANSETRON 4 MG INJ IV PRN (21:00)
[2016-08-30] MEDS ORDERED: GLUCOSE GEL 15 GRAM TUBE BUCCAL PRN (21:00)
[2016-08-30] MEDS ORDERED: DOCUSATE SODIUM 100 MG CAP PO PRN (21:00)
[2016-08-30] MEDS ORDERED: MAGNESIUM HYDROXIDE 30ML CUP PO PRN (21:00)
[2016-08-30] MEDS: INSULIN ASPART [NOVOLOG] 3 ML PEN SC SCH (21:30)
[2016-08-30 22:00] VITALS: BP 164/81; PULSE 85
[2016-08-30] MEDS: GABAPENTIN 300 MG CAP PO SCH (22:03)
[2016-08-30] MEDS: RANOLAZINE (SR) 500 MG TAB PO SCH (22:03)
[2016-08-30] MEDS: RISPERIDONE 0.25 MG TAB PO SCH (22:03)
[2016-08-30] MEDS: LATANOPROST 0.005% 2.5 ML OPH BOTH EYES SCH (22:04)
[2016-08-30] MEDS: HEPARIN 5,000 UNIT/0.5 ML VIAL SC SCH (22:20)
[2016-08-30 23:13] LABS: URINE BILIRUBIN (Dip) NEGATIVE (NEGATIVE); URINE BLOOD (Dip) NEGATIVE (NEGATIVE); URINE COLOR YELLOW (YELLOW); URINE GLUCOSE (Dip) NEGATIVE (NEGATIVE); URINE KETONES (Dip) NEGATIVE (NEGATIVE); URINE NITRITE (Dip) NEGATIVE (NEGATIVE); URINE TOTAL PROTEIN (Dip) TRACE (NEGATIVE)
[2016-08-30 23:14] LABS: ADD UMIC YES; URINE LEUKOCYTE ESTERASE (Dip) NEGATIVE (NEGATIVE); URINE UROBILINOGEN (Dip) 4.0 E.U./dL (0.1-1.0)
[2016-08-30 23:17] LABS: URINE RBCS 0-2 /HPF (0)
[2016-08-30 23:47] VITALS: Ht 160 cm; Wt 52.3 kg
[2016-08-31] MEDS: PANTOPRAZOLE (EC) 40 MG TAB PO SCH (05:26)
[2016-08-31 05:28] VITALS: BP 113/60; PULSE 70
[2016-08-31 06:51] LABS: ADD SCAN DIFF NO
[2016-08-31 06:55] LABS: BASOPHILS % 0.3 % (0.0-2.0); EOSINOPHILS # 0.3 10^3/ul (0.0-0.5); EOSINOPHILS % 2.8 % (0.0-7.0); HEMATOCRIT 26.6 % (42.0-52.0); LYMPHOCYTES # 1.2 10^3/ul (0.8-2.9); LYMPHOCYTES % 10.4 % (15.0-51.0); MEAN CORPUSCULAR HEMOGLOBIN 30.3 pg (29.0-33.0); MEAN CORPUSCULAR HGB CONC 33.8 g/dl (32.0-37.0); MEAN CORPUSCULAR VOLUME 89.6 fl (82.0-101.0); MEAN PLATELET VOLUME 9.6 fl (7.4-10.4); MONOCYTE # 0.9 10^3/ul (0.3-0.9); MONOCYTES % 7.8 % (0.0-11.0); NEUTROPHILS % 76.2 % (39.0-77.0); PLATELET COUNT 332 10^3/UL (140-415); RED BLOOD COUNT 2.97 10^6/ul (4.70-6.10); RED CELL DISTRIBUTION WIDTH 15.9 % (11.5-14.5); WHITE BLOOD COUNT 11.8 10^3/ul (4.8-10.8)
--- NOTE | 2016-08-31 07:11 | PN ---
DATE: 08/30/2016 CARDIOLOGY FOLLOWUP SUBJECTIVE: Discussed with the staff. The patient with no reported chest pain or pressure. No pal pitation. MEDICATIONS: Reviewed. PHYSICAL EXAMINATION: VITAL SIGNS: Temperature 97.8, heart rate of 84, blood pressure 150/73, respiratory rate of 16, sat urating 97%. HEENT: Normocephalic, atraumatic. GENERAL: A thin gentleman in no acute distress, lying flat. NECK: Supple with no JVD. CARDIOVASCULAR: Regular rate and rhythm; systolic murmur. PULMONARY: Anteriorly with no wheezes or rhonchi. GASTROINTESTINAL: Soft, nondistended. No rebound. No guarding. EXTREMITIES: Status post surgery; otherwise no evidence of bleeding. NEUROLOGIC: Is comfortably . PSYCHIATRIC: Appears to be calm now. LABORATORY: WBC 11.9, hemoglobin 9.1, platelet 313. Sodium 130, potassium 4, BUN of 14, creatinine of 0.7 , glucose of 108. ASSESSMENT AND PLAN: 1. Hip fracture, status post surgery with no cardiac complications. 2. History of coronary artery disease, currently stable with no angina with history of congestive h eart failure secondary to diastolic dysfunction, currently appears to be euvolemic and stable. 3. Hypertension, under control now. 4. Diabetes. 5. Dyslipidemia. RECOMMENDATIONS: Will continue postop care. Continue with the current cardiac care. Electrolytes will be corrected as needed. Aspirin and Coreg will be continued. DVT prophylaxis as per ortho and internal medicine will be continued. Dictated By: TRISHA CANO/XIN Conf#: [id number] DID#: [id number]
[2016-08-31 07:21] LABS: ALBUMIN/GLOBULIN RATIO 0.83; BILIRUBIN,INDIRECT 0.6 mg/dl (0-1.1); BILIRUBIN,TOTAL 0.6 mg/dl (0.2-1.3); CALCIUM 7.8 mg/dl (8.4-10.2); CREATININE 0.85 mg/dl (0.61-1.24); POTASSIUM 3.9 mmol/L (3.5-5.1); TOTAL PROTEIN 6.6 g/dl (6.1-8.1)
[2016-08-31] MEDS: INSULIN ASPART [NOVOLOG] 3 ML PEN SC SCH ×4 (07:35→21:00)
[2016-08-31 07:37] VITALS: BP 135/69; RESP 22
[2016-08-31] MEDS: ASPIRIN (EC) 81 MG TAB PO SCH (08:35)
[2016-08-31] MEDS: metFORMIN 500 MG TAB PO SCH (08:35)
[2016-08-31] MEDS: AMIODARONE 200 MG TAB PO SCH (08:35)
[2016-08-31] MEDS: HEPARIN 5,000 UNIT/0.5 ML VIAL SC SCH ×2 (08:37→21:39)
[2016-08-31] MEDS: FERROUS SULFATE (EC) 325 MG TAB PO SCH (08:39)
[2016-08-31] MEDS: DONEPEZIL 10 MG TAB PO SCH (08:39)
[2016-08-31] MEDS: MEMANTINE 10 MG TAB PO SCH (08:39)
[2016-08-31] MEDS: ENALAPRIL 5 MG TAB PO SCH (08:40)
[2016-08-31] MEDS: CITALOPRAM 20 MG TAB PO SCH (08:40)
--- NOTE | 2016-08-31 11:45 | CONS ---
DATE OF ADMISSION: 08/30/2016 DATE OF CONSULTATION: 08/31/2016 TYPE OF CONSULTATION: Rehabilitation Post-Admission Physician Evaluation REHABILITATION IMPAIRMENT CATEGORY: Left comminuted intratrochanteric hip fracture status post ORIF . ACTIVE COMORBIDITIES: 1. Dysphagia. 2. Congestive heart failure. 3. Diabetes mellitus type 2. 4. Coronary artery disease. 5. Hypertension. 6. Gastroesophageal reflux disease. 7. Anemia. 8. Urinary tract infection. 9. Impairments in self-care, mobility and cognition. HISTORY OF PRESENT ILLNESS: The patient is a pleasant 89-year-old gentleman with a history of mult iple medical comorbidities who is status post a fall with contusion, who was then transferred to [facility]. Apparently, at the long-term facility, the patient had another fall wi resultant left intertrochanteric hip fracture. The patient did undergo ORIF of the left hip. Th e patient's hospital course has been notable for dysphagia for which he is on a dysphagia diet, and significant impairments in self-care and mobility as compared to baseline. The patient has been reji ared to transfer to the rehabilitation unit for comprehensive interdisciplinary rehab care. FUNCTIONAL HISTORY: Prior to recent events, he was independent in self-care tasks and mobility. Cu rrently, he requires maximal assist for self-care and mobility tasks. SOCIAL HISTORY: Prior to recent events, he had been living at home and has a supportive family and hopes to return there upon discharge. PAST MEDICAL HISTORY: 1. Coronary artery disease. 2. Congestive heart failure. 3. Diabetes mellitus type 2. 4. Hypertension. 5. Dyslipidemia. 6. Gastroesophageal reflux disease. 7. Chronic obstructive pulmonary disease. CURRENT MEDICATIONS: 1. Cordarone 100 mg p.o. daily. 2. Aspirin 81 mg p.o. daily. 3. Coreg 3.125 mg p.o. b.i.d. 4. Celexa 10 mg p.o. daily. 5. Colace 100 mg b.i.d. p.r.n. 6. Aricept 10 mg p.o. daily. 7. Cosopt eyedrops. 8. Vasotec 5 mg p.o. daily. 9. Ferrous sulfate. 10. Neurontin 300 mg p.o. at bedtime. 11. [place] p.r.n. 12. Insulin sliding scale. 13. Xalatan eyedrops. 14. Milk of magnesia p.r.n. 15. Namenda 10 mg p.o. daily. 16. Protonix 40 mg p.o. daily. 17. Ranexa 500 mg p.o. q.12h. ALLERGIES: THE PATIENT WITH NO KNOWN DRUG ALLERGIES. PHYSICAL EXAMINATION: VITAL SIGNS: The patient is currently afebrile with stable vital signs. HEENT: The extraocular motions appear intact. Oropharynx with poor dentition. LUNGS: Clear anteriorly. CARDIAC: S1, S2. ABDOMEN: Soft, nontender, positive bowel sounds. NEUROLOGIC: He is awake. He is able to follow simple 1-step commands. He is oriented to person. He demonstrates antigravity strength in bilateral upper extremity and the right lower extremity. Do rsiflexion and plantar flexion intact on the left. PLAN: The patient has been admitted for comprehensive interdisciplinary acute rehab and is anticipa tony to tolerate 3 hours of daily therapy in divided doses for at least 5/7 days a week. Treatment p lisa will include: 1. Physical therapy to focus on bed mobility, transfers, and household ambulation with the goal of having the patient reach minimal assist level. 2. Occupational therapy to focus on hygiene, grooming, dressing, bathing, and toileting activities with the goal of having the patient reach a minimal assist level. 3. Speech therapy for dysphagia management with the goal of having the patient meet nutritional nee ds by mouth. 4. Rehabilitation nursing for carryover of therapeutic interventions, the goal of continent of [place] l and bladder, the goal of pain adequately managed on oral medications. REHABILITATION BARRIER: Dysphagia. INTERVENTION FOR BARRIER: Speech therapy. ESTIMATED LENGTH OF STAY: 14 days. DISPOSITION GOAL: Home. I acknowledge that I performed a full physical examination on this patient within 24 hours of admiss ion to the rehabilitation unit. I believe the patient is a good candidate for comprehensive interdi sciplinary rehab care and is anticipated to make reasonable goals in a reasonable period of time as outlined above. Dictated By: SHERON WOODALL/XIN Conf#: [id number] DID#: [id number]
[2016-08-31] MEDS: DORZOLAMIDE/TIMOLOL 10 ML OPH BOTH EYES SCH (12:40)
[2016-08-31] MEDS: RANOLAZINE (SR) 500 MG TAB PO SCH ×2 (12:40→21:22)
[2016-08-31 13:00] VITALS: BP 95/51
[2016-08-31 14:00] VITALS: BP 122/61
--- NOTE | 2016-08-31 15:43 | HP ---
DATE OF ADMISSION: 08/30/2016 REASON FOR ADMISSION: Status post left hip ORIF, status post fracture. HISTORY OF PRESENT ILLNESS: The patient is an 89-year-old male with history of dementia, o verall debilitated, malnutrition, diastolic dysfunction heart failure, coronary artery disease, diab etes mellitus, hypertension, gastroesophageal reflux disease, who recently admitted to [facility] after he was admitted to an outside hospital secondary to a fall and weakness. Unfortunately, he sustained a fall and as I examined him, I was concerned about a fracture of the left hip. In the E R, this was confirmed. X-ray revealed left intertrochanteric fracture of the left hip. The patient was admitted, he was seen by the price analyst, Dr. Francisco and then underwent ORIF of the left hip o n 08/26/2016. Postop, the patient received 1 unit of PRBC and was treated for a mild UTI and was st arted on physical therapy. It was decided to send him to the acute rehabilitation for ongoing physi palmira therapy with the goal, so he can go back home with his family. Upon evaluation, the patient com plained of slight pain in the left hip. Otherwise, has no complaints. Again, the patient is overal l a poor historian secondary to dementia. PAST MEDICAL HISTORY: Includes coronary artery disease, diastolic dysfunction heart failure, diabet es mellitus, hypertension, dyslipidemia, gastroesophageal reflux disease, Alzheimer dementia, COPD. SURGICAL HISTORY: Left hip ORIF. Likely prostate surgery. FAMILY HISTORY: Patient has multiple kids. I spoke with both of his daughters during his recent ho spitalization at [facility]. MEDICATIONS: The patient's current medications include: 1. Senna 1 tab at bedtime. 2. Amiodarone 100 mg daily. 3. Aspirin 81 mg daily. 4. Celexa 10 mg daily. 5. Aricept 10 mg daily. 6. Cosopt eyedrops daily. 7. Vasotec 5 mg daily. 8. Ferrous sulfate 325 daily. 9. Namenda 10 mg daily. 10. Metformin 500 daily with breakfast. 11. Protonix 40 mg daily. 12. Insulin aspart per sliding scale. 13. Xalatan eyedrops at bedtime. 14. Ranexa 500 q.12h. 15. Risperdal 0.25. at bedtime. 16. Tylenol p.r.n. 17. Coreg 3.125 b.i.d. 18. Colace 100 q. p.r.n. 19. Neurontin 300 at bedtime. 20. Heparin 5000 units subq hours. 21. [place] p.r.n. 21. Milk of magnesia p.r.n. 22. Morphine p.r.n. 23. Zofran p.r.n. 24. Ambien p.r.n. 25. Hypoglycemia protocol as directed. SOCIAL HISTORY: Unknown. PHYSICAL EXAMINATION: VITAL SIGNS: Temperature 97.9, pulse 81, respirations 22, blood pressure 135/69, saturation 96% on room air. GENERAL: No acute distress, very frail, pale. CARDIOVASCULAR: S1 and S2, regular rate. LUNGS: Clear. ABDOMEN: Soft, nontender. The patient is thin. EXTREMITIES: There is no clubbing, cyanosis, or edema. Left hip: Bandage is present, no evidence of bleeding. LABORATORY DATA: White count still remains slightly high at 11.8, hemoglobin 9, hematocrit 27, plat elet count 332, neutrophils 76%, lymphocytes 10%. Chemistry: Sodium is 130, potassium 3.9, chlorid e 99, bicarbonate 26, BUN is 16, creatinine 0.85, glucose 117. Last glucose levels are good 103, 13 1 119. Albumin is low at 3.0. UA essentially negative. Nitrites and leukocyte esterase negative, WBCs 0 to 2. MRSA screening is in process. IMAGING: Chest x-ray on 08/26/2016 shows stable left 7th rib fracture. Scattered atelectasis in th e bilateral lower lobes. Previous CT scan of the abdomen and pelvis done on 07/03/2016 did show few bullae at the lung bases, mild bronchiectasis. The patient likely has underlying lung disease, als o mild dilated common bile duct and possible stone in the distal common bile duct measuring 1.1 x 0. 6 cm. This was back in 07/03/2016. Status post prostatectomy, diverticulosis of the sigmoid colon without evidence of diverticulitis, constipation, degenerative changes of the spine. Also post CT s can of the abdomen, he underwent an ultrasound and shows that CT finding may reflect a calculous al ready passed into the duodenum and possibly duodenal debris within the diverticulum. So, at that ti me it was felt maybe the stone had passed. ASSESSMENT AND PLAN: This is an 89-year-old male with history of coronary artery disease, diabetes mellitus, lung disease, possible pulmonary fibrosis, hypertension and dementia who presente d with unfortunate fall. He was found to have a left hip fracture. 1. Left hip fracture status post open reduction internal fixation. The patient is admitted to the acute rehab for physical therapy. Pain control will be provided. 2. Dysphagia. The patient to be seen also by the speech therapist. 3. Anemia, status post 1 unit of packed red blood cells. The patient will be started on iron suppl ements, follow up hemoglobin and hematocrit, p.r.n. transfusion will be given. 4. Diabetes mellitus, overall well controlled. Continue insulin sliding scale. Continue oral metf ormin. 5. Malnutrition. Encourage him to eat. Dietitian to follow up. Continue Glucerna. May consider appetite stimulant 6. Recent urinary tract infection, repeat urine culture is negative. 7. Continue aspiration precautions. Fall precautions. 8. Glaucoma. Continue the patient's eye drops. 9. Coronary artery disease, stable. The patient is on deep venous thrombosis prophylaxis with Love nox. 10. The patient is on Protonix for gastrointestinal prophylaxis. 11. Dementia, on Aricept. 12. Pending patient's clinical course, further decision regarding placement will be made. We will follow. Dictated By: JENNI RAY/XIN Conf#: [id number] DID#: [id number]
[2016-08-31] MEDS: HYDROCODONE/APAP (5/325) TAB PO PRN (18:30)
[2016-08-31 20:14] VITALS: BP 130/70; RESP 19
[2016-08-31] MEDS: GABAPENTIN 300 MG CAP PO SCH (21:22)
[2016-08-31] MEDS: SENNA TAB PO SCH (21:23)
[2016-08-31] MEDS: RISPERIDONE 0.25 MG TAB PO SCH (21:23)
[2016-08-31] MEDS: LATANOPROST 0.005% 2.5 ML OPH BOTH EYES SCH (21:27)
[2016-09-01] MEDS: PANTOPRAZOLE (EC) 40 MG TAB PO SCH (06:53)
[2016-09-01 07:30] VITALS: BP 122/62; RESP 18
[2016-09-01] MEDS: INSULIN ASPART [NOVOLOG] 3 ML PEN SC SCH ×4 (07:35→20:17)
[2016-09-01] MEDS: metFORMIN 500 MG TAB PO SCH (07:49)
[2016-09-01] MEDS: DORZOLAMIDE/TIMOLOL 10 ML OPH BOTH EYES SCH (08:16)
[2016-09-01] MEDS: ENALAPRIL 5 MG TAB PO SCH (08:17)
[2016-09-01] MEDS: FERROUS SULFATE (EC) 325 MG TAB PO SCH (08:17)
[2016-09-01] MEDS: ASPIRIN (EC) 81 MG TAB PO SCH (08:17)
[2016-09-01] MEDS: RANOLAZINE (SR) 500 MG TAB PO SCH ×2 (08:17→20:16)
[2016-09-01] MEDS: DONEPEZIL 10 MG TAB PO SCH (08:17)
[2016-09-01] MEDS: AMIODARONE 200 MG TAB PO SCH (08:20)
[2016-09-01] MEDS: CITALOPRAM 20 MG TAB PO SCH (08:21)
[2016-09-01] MEDS: MEMANTINE 10 MG TAB PO SCH (08:21)
[2016-09-01] MEDS: HEPARIN 5,000 UNIT/0.5 ML VIAL SC SCH ×2 (08:21→20:42)
--- NOTE | 2016-09-01 11:18 | CONS ---
Date/Time of Note Date/Time of Note DATE: 09/01/16 TIME: Consult Date/Type/Reason Admit Date/Time August 30, 2016 at 19:25 Initial Consult Date Subjective Comfortable Objective pulm-cta max assist Vital Signs Date Time Temp Pulse Resp B/P Pulse Ox O2 Delivery O2 Flow Rate FiO2 08/31/16 20:14 98.3 94 19 130/70 94 Intake and Output 08/31/16 08/31/16 09/01/16 15:00 23:00 07:00 Intake Total 720 ml 1080 ml 750 ml Balance 720 ml 1080 ml 750 ml Results/Medications Result Diagram: 08/31/16 0547 08/31/16 0547 Results 24 hrs Laboratory Tests Test 08/31/16 11:37 08/31/16 12:20 08/31/16 17:47 08/31/16 21:28 Bedside Glucose 131 103 115 133 Test 09/01/16 07:37 Bedside Glucose 104 Medications Current Medications Acetaminophen (Tylenol Tab) 650 mg Q6H PRN PO PAIN LEVEL 1-3 OR FEVER; Start at 21:00 Amiodarone HCl (Cordarone) 100 mg DAILY PO Last administered on 09/01/16 08:20 ; Admin Dose 100 MG; Start 08/31/16 at 09:00 Aspirin (Halfprin) 81 mg DAILY PO Last administered on 09/01/16 08:17; Admin Dose 81 MG; Start 08/31/16 at 09:00 Carvedilol (Coreg) 3.125 mg BID PO Last administered on 09/01/16 08:17; Admin Dose 3.125 MG; Start 08/30/16 at 21:00 Citalopram Hydrobromide (Celexa) 10 mg DAILY PO Last administered on 09/01/16 08:21; Admin Dose 10 MG; Start 08/31/16 at 09:00 Docusate Sodium (Colace) 100 mg Q12H PRN PO CONSTIPATION; Start 08/30/16 at 21: 00 Donepezil HCl (Aricept) 10 mg DAILY PO Last administered on 09/01/16 08:17; Admin Dose 10 MG; Start 08/31/16 at 09:00 Dorzolamide/ Timolol (Cosopt) 1 drop DAILY BOTH EYES Last administered on 08:16; Admin Dose 1 DROP; Start 08/31/16 at 09:00 Enalapril Maleate (Vasotec) 5 mg DAILY PO Last administered on 09/01/16 08:17 ; Admin Dose 5 MG; Start 08/31/16 at 09:00 Ferrous Sulfate (Ferrous Sulfate (Ec)) 325 mg DAILY PO Last administered on 08:17; Admin Dose 325 MG; Start 08/31/16 at 09:00 Gabapentin (Neurontin) 300 mg QHS PO Last administered on 08/31/16 21:22; Admin Dose 300 MG; Start 08/30/16 at 21:00 Heparin Sodium (Porcine) (Heparin (5000 Units/0.5 ml)) 5,000 unit Q12 SC Last administered on 09/01/16 08:21; Admin Dose 5,000 UNIT; Start 08/30/16 at 21:00 Acetaminophen/ Hydrocodone Bitart ([place] (5/325)) 1 tab Q6H PRN PO MODERATE PAIN LEVEL 4-6 Last administered on 08/31/16 18:30; Admin Dose 1 TAB; Start at 21:00 Latanoprost (Xalatan) 1 drop HS BOTH EYES Last administered on 08/31/16 21:27 ; Admin Dose 1 DROP; Start 08/30/16 at 21:30 Magnesium Hydroxide (Milk Of Mag) 30 ml DAILY PRN PO CONSTIPATION; Start at 21:00 Memantine (Namenda) 10 mg DAILY PO Last administered on 09/01/16 08:21; Admin Dose 10 MG; Start 08/31/16 at 09:00 Morphine Sulfate (morphine) 2 mg Q4H PRN IV SEVERE PAIN LEVEL 7-10; Start 08/30 at 21:00 Ondansetron HCl (Zofran Inj) 4 mg Q6H PRN IV NAUSEA AND/OR VOMITING; Start at 21:00 Pantoprazole (Protonix Tab) 40 mg DAILY@06 PO Last administered on 09/01/16 06 :53; Admin Dose 40 MG; Start 08/31/16 at 06:00 Ranolazine (Ranexa) 500 mg Q12 PO Last administered on 09/01/16 08:17; Admin Dose 500 MG; Start 08/30/16 at 21:30 Zolpidem Tartrate (Ambien) 5 mg QHS PRN PO SLEEP; Start 08/30/16 at 21:00 Miscellaneous Information 1 ea NOTE XX ; Start 08/30/16 at 21:00 Glucose (Glutose) 15 gm Q15M PRN PO DECREASED GLUCOSE; Start 08/30/16 at 21:00 Glucose (Glutose) 22.5 gm Q15M PRN PO DECREASED GLUCOSE; Start 08/30/16 at 21: 00 Dextrose (D50w Syringe) 25 ml Q15M PRN IV DECREASED GLUCOSE; Start 08/30/16 at 21:00 Dextrose (D50w Syringe) 50 ml Q15M PRN IV DECREASED GLUCOSE; Start 08/30/16 at 21:00 Glucagon (Glucagen) 1 mg Q15M PRN IM DECREASED GLUCOSE; Start 08/30/16 at 21:00 Glucose (Glutose) 15 gm Q15M PRN BUCCAL DECREASED GLUCOSE; Start 08/30/16 at 21 :00 Risperidone (Risperdal) 0.25 mg HS PO Last administered on 08/31/16 21:23; Admin Dose 0.25 MG; Start 08/30/16 at 21:30 Senna (Senokot) 1 tab HS PO Last administered on 08/31/16 21:23; Admin Dose 1 TAB; Start 08/31/16 at 21:00 Assessment/Plan Additional Assessment/Plan Rehab- Left comminuted intratrochanteric hip fracture status post ORIF. Continue treatment plan Dysphagia. Congestive heart failure. Diabetes mellitus type 2. Coronary artery disease. Hypertension. Gastroesophageal reflux disease. Anemia. Urinary tract infection. SHERON ABREU MD September 01, 2016 11:18
--- NOTE | 2016-09-01 14:18 | PN ---
DATE: 09/01/2016 SUBJECTIVE: The patient seen. The patient is alert, answering my questions appropriately. Appetit e is marginal. Still has pain in the left lower extremity, status post left hip ORIF. Overall, juan ears to be comfortable. OBJECTIVE: VITAL SIGNS: Temperature 98.3, pulse 81, respirations 18, blood pressure 122/62, saturation 97% on room air. GENERAL: The patient is in no acute distress, thin looking, pale. CARDIOVASCULAR: S1 and S2, regular rate. LUNGS: Clear. ABDOMEN: Soft, nontender. . EXTREMITIES: Tender to palpation in the left lower extremity upon movement. No edema. LABORATORY DATA: No new labs. Labs from yesterday were reviewed. UA was overall negative. Urine culture shows Carolee albicans was less than 10 to the 4th. MRSA screening is negative as well. MEDICATIONS: Include: 1. Senna 1 tab at bedtime. 2. Amiodarone 100 daily. 3. Aspirin 81 mg daily. 4. Celexa 10 mg daily. 5. Aricept 10 mg daily. 6. Cosopt daily, eyedrops. 7. Vasotec 5 mg daily. 8. Ferrous sulfate 325 daily. 9. Namenda 10 mg daily. 10. Metformin 500 with meal in the a.m. 11. Protonix 40 mg daily. 12. Xalatan eyedrops at bedtime. 13. Ranexa 500 q.12h. 14. Risperdal 2.5 at bedtime. 15. Tylenol p.r.n. 16. Coreg 3.125 b.i.d. 17. Colace p.r.n. 18. Neurontin 300 at bedtime. 19. Heparin 5000 units subcutaneous q.12h. 20. [place] p.r.n. 21. Milk of magnesia p.r.n. 22. Morphine p.r.n. 23. Zofran p.r.n. 24. Ambien p.r.n. 25. Hypoglycemia protocol as directed. Glucose levels are as follows: 161, 104, 133 and 115. ASSESSMENT AND PLAN: This is an 89-year-old male with history of coronary artery disease, diabetes mellitus, lung disease, possible pulmonary fibrosis, hypertension, dementia, who presented with unfortunate fall, was found to have a left hip fracture. 1. Left hip fracture status post open reduction internal fixation. Continue physical therapy, pain control. 2. Dysphagia. Speech therapy to follow. 3. Malnutrition. Follow up dietitian recommendations. Continue Glucerna. 4. Diabetes mellitus, well controlled, now on low-dose metformin. 5. Glaucoma. Continue all eyedrops. 6. Status post urinary tract infection, treated. Repeat UA overall essentially negative. 7. Coronary artery disease. Continue supportive care. The patient is on aspirin, amiodarone, Vas otec, Ranexa, Coreg. 8. Dementia. Continue Aricept and Namenda. 9. The patient is on Protonix for gastrointestinal prophylaxis. Remains medically stable. We will follow closely his progress. Monitor his p.o. intake and physical rehabilitation. Dictated By: JENNI RAY/XIN Conf#: [id number] DID#: [id number]
[2016-09-01] MEDS: HYDROCODONE/APAP (5/325) TAB PO PRN (14:40)
[2016-09-01 20:00] VITALS: BP 168/74; RESP 18
[2016-09-01] MEDS: SENNA TAB PO SCH (20:16)
[2016-09-01] MEDS: GABAPENTIN 300 MG CAP PO SCH (20:16)
[2016-09-01] MEDS: RISPERIDONE 0.25 MG TAB PO SCH (20:16)
[2016-09-01] MEDS: LATANOPROST 0.005% 2.5 ML OPH BOTH EYES SCH (20:17)
[2016-09-01 23:00] VITALS: BP 138/65; PULSE 79
[2016-09-02] MEDS: PANTOPRAZOLE (EC) 40 MG TAB PO SCH (05:39)
[2016-09-02] MEDS: INSULIN ASPART [NOVOLOG] 3 ML PEN SC SCH ×4 (07:35→21:00)
[2016-09-02 07:43] VITALS: BP 114/55; RESP 18
[2016-09-02] MEDS: metFORMIN 500 MG TAB PO SCH (08:20)
[2016-09-02] MEDS: AMIODARONE 200 MG TAB PO SCH (08:21)
[2016-09-02] MEDS: FERROUS SULFATE (EC) 325 MG TAB PO SCH (08:21)
[2016-09-02] MEDS: DONEPEZIL 10 MG TAB PO SCH (08:21)
[2016-09-02] MEDS: RANOLAZINE (SR) 500 MG TAB PO SCH ×2 (08:21→20:34)
[2016-09-02] MEDS: CITALOPRAM 20 MG TAB PO SCH (08:21)
[2016-09-02] MEDS: MEMANTINE 10 MG TAB PO SCH (08:21)
[2016-09-02] MEDS: ASPIRIN (EC) 81 MG TAB PO SCH (08:21)
[2016-09-02] MEDS: DORZOLAMIDE/TIMOLOL 10 ML OPH BOTH EYES SCH (08:22)
[2016-09-02] MEDS: HEPARIN 5,000 UNIT/0.5 ML VIAL SC SCH ×2 (08:22→21:18)
[2016-09-02] MEDS: ENALAPRIL 5 MG TAB PO SCH (08:23)
--- NOTE | 2016-09-02 09:57 | PN ---
Date/Time of Note Date/Time of Note DATE: 09/02/16 TIME: 09:50 Assessment/Plan VTE Prophylaxis VTE Prophylaxis Intervention: heparin Lines/Catheters IV Catheter Type (from Nrs): [place] Urinary Cath still in place: No Assessment/Plan Assessment/Plan 1.Status post fall with left comminuted intratrochanteric hip fracture, status post ORIF, with impaired mobility/gait/ADLs. Continue PT/OT. Max/Total assistance for bed mobility and transfers. 2. Dementia with cognitive impairments. Continue supportive treatment. Continue ST. 3. Acute postoperative pain. Continue pain regimen, adjust further as needed. 4. Dysphagia. Continue modified diet per ST. Continue swallowing training. 5. Chronic Diastolic dysfunction heart failure. Continue medical management. Monitor volume status. 6. Diabetes mellitus type 2. Blood sugars controlled. Continue metformin. 7. Coronary artery disease. Continue medical management. 8. Hypertension. BP controlled. Continue current management. 9. Gastroesophageal reflux disease. Continue PPI. 10. Anemia. Continue iron supplementation. Continue to monitor hemoglobin/ hematocrit. Subjective 24 Hr Interval Summary Free Text/Dictation Rehab progress note Subjective: No acute complaints. Denies current left hip pain. ROS: Denies chest pain, no shortness of breath, no abdominal pain, no vomiting, no chills. Exam/Review of Systems Vital Signs Vitals Vital Signs Date Time Temp Pulse Resp B/P Pulse Ox O2 Delivery O2 Flow Rate FiO2 09/02/16 07:43 98.2 75 18 114/55 95 Intake and Output 09/01/16 09/01/16 09/02/16 15:00 23:00 07:00 Intake Total 1040 ml Balance 1040 ml Exam General: Awake, alert, no acute distress CV: Regular rate, s1s2 Lungs clear to auscultation, no wheezing Abdomen soft, nontender Extremities without cyanosis, no distal edema Neuro: Follows simple commands. Active DF/PF on the left. Results Result Diagram: 08/31/16 0547 08/31/16 0547 Results 24 hrs Laboratory Tests Test 09/01/16 12:09 09/01/16 17:16 09/01/16 20:15 09/02/16 07:47 Bedside Glucose 161 162 166 125 Medications Medications Current Medications Acetaminophen (Tylenol Tab) 650 mg Q6H PRN PO PAIN LEVEL 1-3 OR FEVER; Start at 21:00 Amiodarone HCl (Cordarone) 100 mg DAILY PO Last administered on 09/02/16 08:21 ; Admin Dose 100 MG; Start 08/31/16 at 09:00 Aspirin (Halfprin) 81 mg DAILY PO Last administered on 09/02/16 08:21; Admin Dose 81 MG; Start 08/31/16 at 09:00 Carvedilol (Coreg) 3.125 mg BID PO Last administered on 09/01/16 20:17; Admin Dose 3.125 MG; Start 08/30/16 at 21:00 Citalopram Hydrobromide (Celexa) 10 mg DAILY PO Last administered on 09/02/16 08:21; Admin Dose 10 MG; Start 08/31/16 at 09:00 Docusate Sodium (Colace) 100 mg Q12H PRN PO CONSTIPATION; Start 08/30/16 at 21: 00 Donepezil HCl (Aricept) 10 mg DAILY PO Last administered on 09/02/16 08:21; Admin Dose 10 MG; Start 08/31/16 at 09:00 Dorzolamide/ Timolol (Cosopt) 1 drop DAILY BOTH EYES Last administered on 08:22; Admin Dose 1 DROP; Start 08/31/16 at 09:00 Enalapril Maleate (Vasotec) 5 mg DAILY PO Last administered on 09/01/16 08:17 ; Admin Dose 5 MG; Start 08/31/16 at 09:00 Ferrous Sulfate (Ferrous Sulfate (Ec)) 325 mg DAILY PO Last administered on 08:21; Admin Dose 325 MG; Start 08/31/16 at 09:00 Gabapentin (Neurontin) 300 mg QHS PO Last administered on 09/01/16 20:16; Admin Dose 300 MG; Start 08/30/16 at 21:00 Heparin Sodium (Porcine) (Heparin (5000 Units/0.5 ml)) 5,000 unit Q12 SC Last administered on 09/02/16 08:22; Admin Dose 5,000 UNIT; Start 08/30/16 at 21:00 Acetaminophen/ Hydrocodone Bitart ([place] (5/325)) 1 tab Q6H PRN PO MODERATE PAIN LEVEL 4-6 Last administered on 09/01/16 14:40; Admin Dose 1 TAB; Start at 21:00 Latanoprost (Xalatan) 1 drop HS BOTH EYES Last administered on 09/01/16 20:17 ; Admin Dose 1 DROP; Start 08/30/16 at 21:30 Magnesium Hydroxide (Milk Of Mag) 30 ml DAILY PRN PO CONSTIPATION; Start at 21:00 Memantine (Namenda) 10 mg DAILY PO Last administered on 09/02/16 08:21; Admin Dose 10 MG; Start 08/31/16 at 09:00 Morphine Sulfate (morphine) 2 mg Q4H PRN IV SEVERE PAIN LEVEL 7-10; Start 08/30 at 21:00 Ondansetron HCl (Zofran Inj) 4 mg Q6H PRN IV NAUSEA AND/OR VOMITING; Start at 21:00 Pantoprazole (Protonix Tab) 40 mg DAILY@06 PO Last administered on 09/02/16 05 :39; Admin Dose 40 MG; Start 08/31/16 at 06:00 Ranolazine (Ranexa) 500 mg Q12 PO Last administered on 09/02/16 08:21; Admin Dose 500 MG; Start 08/30/16 at 21:30 Zolpidem Tartrate (Ambien) 5 mg QHS PRN PO SLEEP; Start 08/30/16 at 21:00 Miscellaneous Information 1 ea NOTE XX ; Start 08/30/16 at 21:00 Glucose (Glutose) 15 gm Q15M PRN PO DECREASED GLUCOSE; Start 08/30/16 at 21:00 Glucose (Glutose) 22.5 gm Q15M PRN PO DECREASED GLUCOSE; Start 08/30/16 at 21: 00 Dextrose (D50w Syringe) 25 ml Q15M PRN IV DECREASED GLUCOSE; Start 08/30/16 at 21:00 Dextrose (D50w Syringe) 50 ml Q15M PRN IV DECREASED GLUCOSE; Start 08/30/16 at 21:00 Glucagon (Glucagen) 1 mg Q15M PRN IM DECREASED GLUCOSE; Start 08/30/16 at 21:00 Glucose (Glutose) 15 gm Q15M PRN BUCCAL DECREASED GLUCOSE; Start 08/30/16 at 21 :00 Risperidone (Risperdal) 0.25 mg HS PO Last administered on 09/01/16 20:16; Admin Dose 0.25 MG; Start 08/30/16 at 21:30 Senna (Senokot) 1 tab HS PO Last administered on 09/01/16 20:16; Admin Dose 1 TAB; Start 08/31/16 at 21:00 AMI GROVER September 02, 2016 09:57
[2016-09-02] MEDS: HYDROCODONE/APAP (5/325) TAB PO PRN (14:19)
--- NOTE | 2016-09-02 16:12 | PN ---
DATE: 09/02/2016 SUBJECTIVE: The patient seen, case was discussed with staff. Unfortunately, the patient is resisti ng to walk much as he has pain in the left lower extremity. Diet was advanced by speech therapy to soft mechanical. Diet may be advanced further as he will get his dentures from home. PHYSICAL EXAMINATION: VITAL SIGNS: Temperature is 98.2, pulse 75, respirations 18, blood pressure 114/55, saturation 95%. GENERAL: The patient is in no acute distress. HEENT: Normocephalic, atraumatic. The patient is pale, thin. CARDIOVASCULAR: S1 and S2. LUNGS: Decreased bilaterally, otherwise clear. ABDOMEN: Soft, nontender. EXTREMITIES: No clubbing, cyanosis, edema. Slight pain in the left hip upon movement of the leg. LABORATORY DATA: White count is 11.8, hemoglobin 9, hematocrit 27, platelet count 332 on admission. His glucose levels are 139/125/166. MEDICATIONS: 1. Senna 1 tab at bedtime. 2. Amiodarone 100 mg daily. 3. Aspirin 81 mg daily. 4. Celexa 10 mg daily. 5. Aricept 10 mg daily. 6. Cosopt daily. 7. Vasotec 5 mg daily. 8. Ferrous sulfate 325 daily. 9. Namenda mg daily. 10. Glucophage 500 with breakfast. 11. Protonix 40 mg daily. 12. Insulin aspart per sliding scale. 13. Xalatan eyedrops at bedtime. 14. Ranexa 500 q.12. 15. Risperdal 0.25 at bedtime. 16. Tylenol p.r.n. 17. Coreg 3.125 b.i.d. 18. Colace 100 q.12 p.r.n. 19. Neurontin 300 at bedtime. 20. Heparin 5000 units subq q.12. 21. Milk of magnesia. 22. Morphine. 23. Zofran. 24. Ambien p.r.n. ASSESSMENT AND PLAN: This is an 89-year-old male with history of coronary artery disease, diabetes mellitus, lung disease, possible pulmonary fibrosis, hypertension, dementia, who presented with unfortunate fall, status post left hip open reduction and internal fixation. 1. Left hip open reduction and internal fixation, status post fracture. Continue physical therapy, pain control, help with activities of daily living. 2. Dysphagia. Diet is being advanced. Monitor patient's p.o. intake. 3. Malnutrition, on Glucerna. 4. Diabetes mellitus, well controlled. Continue metformin. 5. Glaucoma. Continue all eyedrops. 6. Status post urinary tract infection. Repeat UA overall are essentially negative. 7. Coronary artery disease. Continue supportive care. Patient is on aspirin, amiodarone, Vasotec, Ranexa, and Coreg. 8. Dementia, on Aricept and Namenda. Mood appears to be stable. 9. Continue Protonix for gastrointestinal prophylaxis. Continue heparin for deep venous thrombosis prophylaxis. We will repeat labs soon to monitor his anemia and leukocytosis. Dictated By: JENNI RAY/XIN Conf#: [id number] DID#: [id number]
[2016-09-02 19:51] VITALS: BP 143/73; PULSE 76; RESP 16
[2016-09-02] MEDS: GABAPENTIN 300 MG CAP PO SCH (20:34)
[2016-09-02] MEDS: RISPERIDONE 0.25 MG TAB PO SCH (20:34)
[2016-09-02] MEDS: SENNA TAB PO SCH (20:35)
[2016-09-02] MEDS: LATANOPROST 0.005% 2.5 ML OPH BOTH EYES SCH (20:35)
[2016-09-03] MEDS: HYDROCODONE/APAP (5/325) TAB PO PRN ×4 (00:28→20:50)
[2016-09-03] MEDS: PANTOPRAZOLE (EC) 40 MG TAB PO SCH (05:44)
[2016-09-03 07:26] LABS: ADD SCAN DIFF NO
[2016-09-03 07:29] LABS: BASOPHIL # 0.1 10^3/ul (0.0-0.1); BASOPHILS % 0.4 % (0.0-2.0); EOSINOPHILS # 0.4 10^3/ul (0.0-0.5); EOSINOPHILS % 3.5 % (0.0-7.0); HEMATOCRIT 28.8 % (42.0-52.0); HEMOGLOBIN 9.5 g/dl (14.0-18.0); LYMPHOCYTES # 1.5 10^3/ul (0.8-2.9); MEAN CORPUSCULAR HEMOGLOBIN 30.1 pg (29.0-33.0); MEAN CORPUSCULAR VOLUME 91.1 fl (82.0-101.0); MONOCYTE # 0.8 10^3/ul (0.3-0.9); MONOCYTES % 6.7 % (0.0-11.0); NEUTROPHIL # 9.3 10^3/ul (1.6-7.5); NEUTROPHILS % 75.2 % (39.0-77.0); PLATELET COUNT 407 10^3/UL (140-415); RED BLOOD COUNT 3.16 10^6/ul (4.70-6.10); RED CELL DISTRIBUTION WIDTH 16.4 % (11.5-14.5); WHITE BLOOD COUNT 12.4 10^3/ul (4.8-10.8)
[2016-09-03 07:30] VITALS: BP_SYST 131; BP_SYST 143; BP_DIAS 61; BP_DIAS 73; PULSE 75; RESP 16; RESP 18
[2016-09-03] MEDS: INSULIN ASPART [NOVOLOG] 3 ML PEN SC SCH ×4 (07:35→20:54)
[2016-09-03 07:50] LABS: PHOSPHORUS 3.5 mg/dl (2.5-4.9)
[2016-09-03 07:54] LABS: CALCIUM 8.3 mg/dl (8.4-10.2); CREATININE 0.74 mg/dl (0.61-1.24); POTASSIUM 4.1 mmol/L (3.5-5.1)
[2016-09-03] MEDS: metFORMIN 500 MG TAB PO SCH (07:57)
[2016-09-03] MEDS: RANOLAZINE (SR) 500 MG TAB PO SCH ×2 (08:41→20:50)
[2016-09-03] MEDS: DORZOLAMIDE/TIMOLOL 10 ML OPH BOTH EYES SCH (08:41)
[2016-09-03] MEDS: ASPIRIN (EC) 81 MG TAB PO SCH (08:42)
[2016-09-03] MEDS: ENALAPRIL 5 MG TAB PO SCH (08:42)
[2016-09-03] MEDS: FERROUS SULFATE (EC) 325 MG TAB PO SCH (08:42)
[2016-09-03] MEDS: MEMANTINE 10 MG TAB PO SCH (08:42)
[2016-09-03] MEDS: CITALOPRAM 20 MG TAB PO SCH (08:43)
[2016-09-03] MEDS: AMIODARONE 200 MG TAB PO SCH (08:44)
[2016-09-03] MEDS: DONEPEZIL 10 MG TAB PO SCH (08:44)
[2016-09-03] MEDS: HEPARIN 5,000 UNIT/0.5 ML VIAL SC SCH ×2 (08:48→20:53)
--- NOTE | 2016-09-03 13:22 | PN ---
DATE: 09/03/2016 SUBJECTIVE: Patient seen sitting in a chair, eating his lunch, complaining of left hip pain. Other winters, no other complaints. He ate most of his pudding than the rest of his meal. I encouraged him to eat. PHYSICAL EXAMINATION: VITAL SIGNS: Temperature 97.6, pulse 75, respirations 16, blood pressure 121/____, saturation 96% o n room air. GENERAL: The patient is in no acute distress, pale, thin. CARDIOVASCULAR: S1 and S2. Regular rate. LUNGS: Clear. ABDOMEN: Soft, nontender. EXTREMITIES: No clubbing, cyanosis, or edema. LABORATORY DATA: White count today is slightly high at 12.4, hemoglobin 9.5, hematocrit 29, platele t count 407, neutrophils 75%, lymphocytes 12%. Chemistry: Sodium 131, potassium 4.1, chloride 98, bicarbonate 27, BUN is 18, creatinine 0.74 and glucose 110. Urine on admission was negative. Urine culture showed [place]olee albicans, but less than 10,000. MEDICATIONS: 1. Senna 1 tab at bedtime. 2. Amiodarone 100 daily. 3. Aspirin 81 mg daily. 4. Celexa 10 mg daily. 5. Aricept 10 mg daily. 6. Cosopt eyedrops daily basis. 7. Vasotec 5 mg daily. 8. Ferrous sulfate 25 daily. 9. Namenda 10 mg daily. 10. Glucophage 500 daily. 11. Protonix 40 mg daily. 12. Xalatan eyedrops at bedtime. 13. Ranexa 500 q. 12. 14. Risperdal 0.25 at bedtime. 15. Tylenol p.r.n. 16. Coreg 3.125 b.i.d. 17. Colace p.r.n. 18. Neurontin 300 at night. 19. Heparin 5000 q. 12. 20. [place] p.r.n. 21. Milk of magnesia p.r.n. 22. Morphine p.r.n. 23. Zofran p.r.n. 24. Ambien p.r.n. 25. Hypoglycemia protocol as directed. ASSESSMENT AND PLAN: 1. This is an 89-year-old male with history of coronary artery disease, diabetes mellitus, lung disease, possible pulmonary fibrosis per old records, hypertension, dementia, presents with un fortunate fall, now status post left hip open reduction internal fixation. 2. Left hip open reduction internal fixation, status post fall and fracture. Continue physical the rapy, pain control. Since his pain is somewhat persistent, we will order another x-ray of the left hip. 3. Dysphagia. Continue soft mechanical diet. Encourage him to eat. Continue Glucerna as well. 4. Diabetes mellitus. Continue metformin. 5. Status post urinary tract infection. He was treated with Rocephin. Repeat UA is overall unrema rkable. 6. Coronary artery disease. Continue medical management and supportive care. The patient remains on Coreg, aspirin, Ranexa, Vasotec and amiodarone. 7. Dementia. Continue Aricept and Namenda. 8. The patient is on Protonix for gastrointestinal prophylaxis. 9. Mild leukocytosis. Observe, currently no evidence of infection. We will continue to monitor th e patient closely. Dictated By: JENNI RAY/XIN Conf#: [id number] DID#: [id number]
--- NOTE | 2016-09-03 13:29 | PN ---
Date/Time of Note Date/Time of Note DATE: 09/03/16 TIME: 13:23 Assessment/Plan VTE Prophylaxis VTE Prophylaxis Intervention: heparin Lines/Catheters IV Catheter Type (from Nrsg): Saline Lock Urinary Cath still in place: No Assessment/Plan Assessment/Plan 1. Left comminuted intratrochanteric hip fracture status post fall, treated with ORIF, with impaired mobility/gait/ADLs. Continue PT/OT. Max gait 3 ft with FWW. Continue prn norco for acute postoperative pain, norco changed to q4h prn to improve pain control. 2. Dementia with cognitive impairments. On namenda, aricept. Continue cognitive training. 3. Dysphagia. On soft diet per ST, continue swallowing training. 4. Chronic diastolic dysfunction heart failure. Continue medical management. 5. Diabetes mellitus type 2. Continue metformin and insulin sliding scale. Blood sugars controlled. 6. Coronary artery disease. Continue medical management. 7. Hypertension. BP controlled. Continue antihypertensive meds per internal medicine. 8. Anemia. On iron supplementation. Continue to monitor hemoglobin/hematocrit. 9. Hyponatremia. Continue to monitor Na level, internal medicine following. 10. Leukocytosis. Status post treatment of UTI. Continue to monitor WBCs and temp curve trend. Subjective 24 Hr Interval Summary Free Text/Dictation Rehab progress note Subjective: Reports moderate pain in left hip. ROS: Denies chest pain, no shortness of breath, no abdominal pain, no nausea, no chills. No constipation. Exam/Review of Systems Vital Signs Vitals Vital Signs Date Time Temp Pulse Resp B/P Pulse Ox O2 Delivery O2 Flow Rate FiO2 09/03/16 07:30 97.7 76 18 143/73 97 09/03/16 07:30 Room Air Intake and Output 09/02/16 09/02/16 09/03/16 15:00 23:00 07:00 Intake Total 720 ml 360 ml 300 ml Balance 720 ml 360 ml 300 ml Exam General: Awake, alert, no acute distress CV: Regular rate, s1s2 Lungs: Diminished breath sounds bilaterally, no wheezing Abdomen soft, nontender, +bowel sounds Extremities without cyanosis, no new swelling Neuro: No new focal changes. Follows simple commands. Results Result Diagram: 09/03/16 0630 09/03/16 0630 Results 24 hrs Laboratory Tests Test 09/02/16 17:22 09/02/16 21:16 09/03/16 06:30 09/03/16 07:45 Bedside Glucose 130 125 113 White Blood Count 12.4 H Red Blood Count 3.16 L Hemoglobin 9.5 L Hematocrit 28.8 L Mean Corpuscular Volume 91.1 Mean Corpuscular Hemoglobin 30.1 Mean Corpuscular Hemoglobin Concent 33.0 Red Cell Distribution Width 16.4 H Platelet Count 407 # Mean Platelet Volume 10.0 Neutrophils % 75.2 Lymphocytes % 12.0 L Monocytes % 6.7 Eosinophils % 3.5 Basophils % 0.4 Nucleated Red Blood Cells % 0.0 Neutrophils # 9.3 H Lymphocytes # 1.5 Monocytes # 0.8 Eosinophils # 0.4 Basophils # 0.1 Nucleated Red Blood Cells # 0.0 Sodium Level 131 L Potassium Level 4.1 Chloride Level 98 Carbon Dioxide Level 27 Anion Gap 10 Blood Urea Nitrogen 18 Creatinine 0.74 Glucose Level 110 Calcium Level 8.3 L Phosphorus Level 3.5 Magnesium Level 2.0 Test 09/03/16 12:27 Bedside Glucose 172 Medications Medications Current Medications Acetaminophen (Tylenol Tab) 650 mg Q6H PRN PO PAIN LEVEL 1-3 OR FEVER; Start at 21:00 Amiodarone HCl (Cordarone) 100 mg DAILY PO Last administered on 09/03/16 08:44 ; Admin Dose 100 MG; Start 08/31/16 at 09:00 Aspirin (Halfprin) 81 mg DAILY PO Last administered on 09/03/16 08:42; Admin Dose 81 MG; Start 08/31/16 at 09:00 Carvedilol (Coreg) 3.125 mg BID PO Last administered on 09/03/16 08:44; Admin Dose 3.125 MG; Start 08/30/16 at 21:00 Citalopram Hydrobromide (Celexa) 10 mg DAILY PO Last administered on 09/03/16 08:43; Admin Dose 10 MG; Start 08/31/16 at 09:00 Docusate Sodium (Colace) 100 mg Q12H PRN PO CONSTIPATION; Start 08/30/16 at 21: 00 Donepezil HCl (Aricept) 10 mg DAILY PO Last administered on 09/03/16 08:44; Admin Dose 10 MG; Start 08/31/16 at 09:00 Dorzolamide/ Timolol (Cosopt) 1 drop DAILY BOTH EYES Last administered on 08:41; Admin Dose 1 DROP; Start 08/31/16 at 09:00 Enalapril Maleate (Vasotec) 5 mg DAILY PO Last administered on 09/03/16 08:42 ; Admin Dose 5 MG; Start 08/31/16 at 09:00 Ferrous Sulfate (Ferrous Sulfate (Ec)) 325 mg DAILY PO Last administered on 08:42; Admin Dose 325 MG; Start 08/31/16 at 09:00 Gabapentin (Neurontin) 300 mg QHS PO Last administered on 09/02/16 20:34; Admin Dose 300 MG; Start 08/30/16 at 21:00 Heparin Sodium (Porcine) (Heparin (5000 Units/0.5 ml)) 5,000 unit Q12 SC Last administered on 09/03/16 08:48; Admin Dose 5,000 UNIT; Start 08/30/16 at 21:00 Latanoprost (Xalatan) 1 drop HS BOTH EYES Last administered on 09/02/16 20:35 ; Admin Dose 1 DROP; Start 08/30/16 at 21:30 Magnesium Hydroxide (Milk Of Mag) 30 ml DAILY PRN PO CONSTIPATION; Start at 21:00 Memantine (Namenda) 10 mg DAILY PO Last administered on 09/03/16 08:42; Admin Dose 10 MG; Start 08/31/16 at 09:00 Morphine Sulfate (morphine) 2 mg Q4H PRN IV SEVERE PAIN LEVEL 7-10; Start 08/30 at 21:00 Ondansetron HCl (Zofran Inj) 4 mg Q6H PRN IV NAUSEA AND/OR VOMITING; Start at 21:00 Pantoprazole (Protonix Tab) 40 mg DAILY@06 PO Last administered on 09/03/16 05 :44; Admin Dose 40 MG; Start 08/31/16 at 06:00 Ranolazine (Ranexa) 500 mg Q12 PO Last administered on 09/03/16 08:41; Admin Dose 500 MG; Start 08/30/16 at 21:30 Zolpidem Tartrate (Ambien) 5 mg QHS PRN PO SLEEP; Start 08/30/16 at 21:00 Miscellaneous Information 1 ea NOTE XX ; Start 08/30/16 at 21:00 Glucose (Glutose) 15 gm Q15M PRN PO DECREASED GLUCOSE; Start 08/30/16 at 21:00 Glucose (Glutose) 22.5 gm Q15M PRN PO DECREASED GLUCOSE; Start 08/30/16 at 21: 00 Dextrose (D50w Syringe) 25 ml Q15M PRN IV DECREASED GLUCOSE; Start 08/30/16 at 21:00 Dextrose (D50w Syringe) 50 ml Q15M PRN IV DECREASED GLUCOSE; Start 08/30/16 at 21:00 Glucagon (Glucagen) 1 mg Q15M PRN IM DECREASED GLUCOSE; Start 08/30/16 at 21:00 Glucose (Glutose) 15 gm Q15M PRN BUCCAL DECREASED GLUCOSE; Start 08/30/16 at 21 :00 Risperidone (Risperdal) 0.25 mg HS PO Last administered on 09/02/16 20:34; Admin Dose 0.25 MG; Start 08/30/16 at 21:30 Senna (Senokot) 1 tab HS PO Last administered on 09/01/16 20:16; Admin Dose 1 TAB; Start 08/31/16 at 21:00 Acetaminophen/ Hydrocodone Bitart ([place] (5/325)) 1 tab Q4H PRN PO MODERATE PAIN LEVEL 4-6; Start 09/03/16 at 13:30 AMI GROVER September 03, 2016 13:29
--- NOTE | 2016-09-03 17:25 | RADRPT ---
PROCEDURE: XR Left hip and pelvis. CLINICAL INDICATION: Left hip pain and pelvic pain. TECHNIQUE: 3 views. Frontal pelvis. Frontal and lateral left hip. COMPARISON: 08/26/2016. FINDINGS: There is a lisa in the shaft of the femur and a screw in the neck of the femur transfixing an intertr ochanteric fracture of the left hip. Alignment is satisfactory. Left lateral skin warren are note d as seen previously. Surgical clips are present in the pelvis. The right hip is abnormal with irr egularity of the subcapital region which may indicate a fracture. The soft tissues are normal. Articular surfaces are intact. There is no lytic or blastic lesion. The pelvis is otherwise unremarkable. IMPRESSION: 1. Satisfactory postoperative appearance of the left hip. 2. Prior pelvic surgery. 3. Possible subcapital fracture of the right hip, age indeterminate. Correlation with CT scan shou ld be considered if clinically warranted. RPTAT: QQ .Enmanuel Vaca MD, Date Time Electronically viewed and signed by .Enmanuel Vaca MD, on 09/03/2016 17:24 .R/
[2016-09-03 19:44] VITALS: BP 113/55; RESP 17
[2016-09-03] MEDS: RISPERIDONE 0.25 MG TAB PO SCH (20:50)
[2016-09-03] MEDS: LATANOPROST 0.005% 2.5 ML OPH BOTH EYES SCH (20:50)
[2016-09-03] MEDS: SENNA TAB PO SCH (20:50)
[2016-09-03] MEDS: GABAPENTIN 300 MG CAP PO SCH (20:55)
--- NOTE | 2016-09-03 23:38 | RADRPT ---
PROCEDURE: Noncontrast CT right hip CLINICAL INDICATION: Suspected right hip fracture status post trauma. TECHNIQUE: Noncontrast CT examination of the right hip, with axial, sagittal and coronal reformatte d images. CTDI: 18.40 and DLP: 719.99. COMPARISON: Plain film right hip dated today, earlier in the day. FINDINGS: No acute fracture or dislocation. Soft tissues unremarkable. IMPRESSION: No acute fracture. RPTAT: [facility] Physician Francesco Date Time Electronically viewed and signed by Physician Francesco on 09/03/2016 23:38 RS/
[2016-09-04] MEDS: PANTOPRAZOLE (EC) 40 MG TAB PO SCH (06:32)
[2016-09-04] MEDS: INSULIN ASPART [NOVOLOG] 3 ML PEN SC SCH ×4 (07:35→21:00)
[2016-09-04] MEDS: ENALAPRIL 5 MG TAB PO SCH (09:00)
[2016-09-04] MEDS: AMIODARONE 200 MG TAB PO SCH (09:11)
[2016-09-04] MEDS: metFORMIN 500 MG TAB PO SCH (09:12)
[2016-09-04] MEDS: MEMANTINE 10 MG TAB PO SCH (09:12)
[2016-09-04] MEDS: RANOLAZINE (SR) 500 MG TAB PO SCH ×2 (09:13→20:55)
[2016-09-04] MEDS: DONEPEZIL 10 MG TAB PO SCH (09:13)
[2016-09-04] MEDS: FERROUS SULFATE (EC) 325 MG TAB PO SCH (09:13)
[2016-09-04] MEDS: ASPIRIN (EC) 81 MG TAB PO SCH (09:14)
[2016-09-04] MEDS: DORZOLAMIDE/TIMOLOL 10 ML OPH BOTH EYES SCH (09:14)
[2016-09-04] MEDS: HEPARIN 5,000 UNIT/0.5 ML VIAL SC SCH ×2 (09:15→21:01)
--- NOTE | 2016-09-04 11:14 | PN ---
Date/Time of Note Date/Time of Note DATE: 09/04/16 TIME: 11:11 Assessment/Plan VTE Prophylaxis VTE Prophylaxis Intervention: heparin Lines/Catheters IV Catheter Type (from Nrs): Saline Lock Urinary Cath still in place: No Assessment/Plan Assessment/Plan 1. Left comminuted intratrochanteric hip fracture after sustaining a fall, status post ORIF, with impaired mobility/gait/ADLs. Continue PT/OT. Follow up XR showed satisfactory post op appearance of left hip, but with questionable subcapital right hip fracture. Dr Villela has been consulted and CT scan right hip done which showed no evidence of acute fracture or dislocation. Follow up any further recs from ortho. 2. Dementia with impaired cognition. Continue supportive treatment and ST. 3. Acute pain syndrome secondary to above. Overall appears controlled with prn norco. Continue to closely monitor and adjust further as needed. 4. Dysphagia. Continue ST. Continue modified diet. Maintain aspiration precautions. 5. Chronic diastolic dysfunction heart failure, volume status stable. Continue to monitor. 6. Diabetes mellitus type 2. Continue metformin. Blood sugars controlled. 7. Coronary artery disease. Continue medical management. 8. Hypertension. BP controlled. 9. Anemia. Continue iron supplementation. Continue to monitor hemoglobin/ hematocrit, improving on last labs. 10. Hyponatremia. Continue to monitor. Internal medicine following. 11. Leukocytosis. Status post treatment of UTI. Continue to monitor WBCs and temp curve trend. Subjective 24 Hr Interval Summary Free Text/Dictation Rehab progress note Subjective: Reports mild pain currently in left hip. Denies any pain in right hip. ROS: Denies headache, no dizziness, no chest pain, no shortness of breath, no chills, no abdominal pain, no vomiting. Exam/Review of Systems Vital Signs Vitals Vital Signs Date Time Temp Pulse Resp B/P Pulse Ox O2 Delivery O2 Flow Rate FiO2 09/03/16 19:44 98.3 80 17 113/55 96 09/03/16 07:30 Room Air Intake and Output 09/03/16 09/03/16 09/04/16 15:00 23:00 07:00 Intake Total 1020 ml Output Total 1 ml Balance 1020 ml -1 ml Exam General: Awake, alert, no acute distress, laying in bed CV: Regular rate, s1s2 audible Lungs: Diminished breath sounds bilaterally, no wheezing or crackles Abdomen soft, nontender Extremities without cyanosis, no new edema Neuro: No new focal changes. Follows simple commands. Results Result Diagram: 09/03/16 0630 09/03/16 0630 Results 24 hrs Laboratory Tests Test 09/03/16 12:27 09/03/16 17:18 09/03/16 20:46 09/04/16 08:18 Bedside Glucose 172 108 165 138 Medications Medications Current Medications Acetaminophen (Tylenol Tab) 650 mg Q6H PRN PO PAIN LEVEL 1-3 OR FEVER; Start at 21:00 Amiodarone HCl (Cordarone) 100 mg DAILY PO Last administered on 09/04/16 09:11 ; Admin Dose 100 MG; Start 08/31/16 at 09:00 Aspirin (Halfprin) 81 mg DAILY PO Last administered on 09/04/16 09:14; Admin Dose 81 MG; Start 08/31/16 at 09:00 Carvedilol (Coreg) 3.125 mg BID PO Last administered on 09/04/16 09:13; Admin Dose 3.125 MG; Start 08/30/16 at 21:00 Citalopram Hydrobromide (Celexa) 10 mg DAILY PO Last administered on 09/03/16 08:43; Admin Dose 10 MG; Start 08/31/16 at 09:00 Docusate Sodium (Colace) 100 mg Q12H PRN PO CONSTIPATION; Start 08/30/16 at 21: 00 Donepezil HCl (Aricept) 10 mg DAILY PO Last administered on 09/04/16 09:13; Admin Dose 10 MG; Start 08/31/16 at 09:00 Dorzolamide/ Timolol (Cosopt) 1 drop DAILY BOTH EYES Last administered on 09:14; Admin Dose 1 DROP; Start 08/31/16 at 09:00 Enalapril Maleate (Vasotec) 5 mg DAILY PO Last administered on 09/03/16 08:42 ; Admin Dose 5 MG; Start 08/31/16 at 09:00 Ferrous Sulfate (Ferrous Sulfate (Ec)) 325 mg DAILY PO Last administered on 09:13; Admin Dose 325 MG; Start 08/31/16 at 09:00 Gabapentin (Neurontin) 300 mg QHS PO Last administered on 09/03/16 20:55; Admin Dose 300 MG; Start 08/30/16 at 21:00 Heparin Sodium (Porcine) (Heparin (5000 Units/0.5 ml)) 5,000 unit Q12 SC Last administered on 09/04/16 09:15; Admin Dose 5,000 UNIT; Start 08/30/16 at 21:00 Latanoprost (Xalatan) 1 drop HS BOTH EYES Last administered on 09/03/16 20:50 ; Admin Dose 1 DROP; Start 08/30/16 at 21:30 Magnesium Hydroxide (Milk Of Mag) 30 ml DAILY PRN PO CONSTIPATION; Start at 21:00 Memantine (Namenda) 10 mg DAILY PO Last administered on 09/04/16 09:12; Admin Dose 10 MG; Start 08/31/16 at 09:00 Morphine Sulfate (morphine) 2 mg Q4H PRN IV SEVERE PAIN LEVEL 7-10; Start 08/30 at 21:00 Ondansetron HCl (Zofran Inj) 4 mg Q6H PRN IV NAUSEA AND/OR VOMITING; Start at 21:00 Pantoprazole (Protonix Tab) 40 mg DAILY@06 PO Last administered on 09/04/16 06 :32; Admin Dose 40 MG; Start 08/31/16 at 06:00 Ranolazine (Ranexa) 500 mg Q12 PO Last administered on 09/04/16 09:13; Admin Dose 500 MG; Start 08/30/16 at 21:30 Zolpidem Tartrate (Ambien) 5 mg QHS PRN PO SLEEP; Start 08/30/16 at 21:00 Miscellaneous Information 1 ea NOTE XX ; Start 08/30/16 at 21:00 Glucose (Glutose) 15 gm Q15M PRN PO DECREASED GLUCOSE; Start 08/30/16 at 21:00 Glucose (Glutose) 22.5 gm Q15M PRN PO DECREASED GLUCOSE; Start 08/30/16 at 21: 00 Dextrose (D50w Syringe) 25 ml Q15M PRN IV DECREASED GLUCOSE; Start 08/30/16 at 21:00 Dextrose (D50w Syringe) 50 ml Q15M PRN IV DECREASED GLUCOSE; Start 08/30/16 at 21:00 Glucagon (Glucagen) 1 mg Q15M PRN IM DECREASED GLUCOSE; Start 08/30/16 at 21:00 Glucose (Glutose) 15 gm Q15M PRN BUCCAL DECREASED GLUCOSE; Start 08/30/16 at 21 :00 Risperidone (Risperdal) 0.25 mg HS PO Last administered on 09/03/16 20:50; Admin Dose 0.25 MG; Start 08/30/16 at 21:30 Senna (Senokot) 1 tab HS PO Last administered on 09/03/16 20:50; Admin Dose 1 TAB; Start 08/31/16 at 21:00 Acetaminophen/ Hydrocodone Bitart ([place] (5/325)) 1 tab Q4H PRN PO MODERATE PAIN LEVEL 4-6 Last administered on 09/03/16 20:50; Admin Dose 1 TAB; Start at 13:30 AMI GROVER September 04, 2016 11:14
[2016-09-04] MEDS: ACETAMINOPHEN 325 MG TAB PO PRN (11:59)
[2016-09-04] MEDS: CITALOPRAM 20 MG TAB PO SCH (11:59)
--- NOTE | 2016-09-04 15:07 | PN ---
DATE: 09/04/2016 SUBJECTIVE: Yesterday's chest x-ray of the hip showed a prior pelvic surgery, possible subcapital f racture of the right hip, age indeterminate, correlation with CT scan will be warranted, and that wa s followed by CT scan of the right hip which shows no acute fracture. The patient overall seen at [facility], appears to be comfortable. Patient with no complaints. OBJECTIVE: VITAL SIGNS: Temperature 98.3, pulse 80, respirations 17, blood pressure 113/55, saturation 96% on room air. GENERAL: The patient in no acute distress, frail, pale. CARDIOVASCULAR: S1 and S2, regular rate. LUNGS: Clear. ABDOMEN: Soft, nontender. EXTREMITIES: No pain upon movement of the right lower extremity. Slight pain upon movement of the left lower extremity at the left hip. That is where he had his surgery. LABORATORY DATA: No new labs today. Labs yesterday were all reviewed. White count was slightly hi gh at 12.4, hemoglobin of 9.5. Glucose level 138, 165, 108. MEDICATIONS: 1. [place] p.r.n. 2. Senna at bedtime. 3. Amiodarone 100 daily. 4. Aspirin 81 mg daily. 5. Celexa 10 mg daily. 6. Aricept 10 mg daily. 7. ____ 1 puff daily. 8. Vasotec 5 mg daily. 9. Ferrous sulfate 325 daily. 10. Namenda 10 mg daily. 11. Metformin 500 q. breakfast. 12. Protonix 40 mg daily. 13. Insulin aspart per sliding scale. 14. Xalatan eyedrops. 15. Ranexa 5 mg q.12h. 16. Risperdal 0.25 at bedtime p.r.n. 17. Tylenol. 18. Colace. 19. Heparin 5000 units subq q.12h. 20. Neurontin 300 at bedtime. 21. Coreg 3.125 b.i.d. All other p.r.n. medications were reviewed. ASSESSMENT AND PLAN: This is an unfortunate 89-year-old male with history of coronary siena ry disease, diabetes mellitus, lung disease, hypertension, dementia who presented with unfortunate f all, was found to have left hip fracture, now status post open reduction internal fixation. 1. Status post left hip open reduction internal fixation. Continue physical therapy, pain control. No new fractures were noted on the CAT scan. Dr. Villela to follow. 2. Dysphagia. Continue current diet, dietitian to follow. Continue Glucerna. ____ p.o. intake if not improved. 3. Diabetes mellitus. Continue metformin. 4. Status post urinary tract infection, treated with Rocephin. Repeat UA is unremarkable. 5. Coronary artery disease. Continue medical management. The patient is on Coreg, aspirin and Ran exa, Vasotec and amiodarone, hemodynamically stable. 6. Dementia, on Aricept and Namenda. 7. Continue Protonix for GI prophylaxis. 8. Mild leukocytosis with no evidence of infectious process. This is likely reactive in nature. W tk will follow. Dictated By: JENNI RAY/XIN Conf#: [id number] DID#: [id number]
[2016-09-04 20:05] VITALS: BP 119/60; RESP 16
[2016-09-04] MEDS: RISPERIDONE 0.25 MG TAB PO SCH (20:55)
[2016-09-04] MEDS: GABAPENTIN 300 MG CAP PO SCH (20:55)
[2016-09-04] MEDS: SENNA TAB PO SCH (21:00)
[2016-09-04] MEDS: LATANOPROST 0.005% 2.5 ML OPH BOTH EYES SCH (21:12)
[2016-09-05] MEDS: PANTOPRAZOLE (EC) 40 MG TAB PO SCH (05:31)
[2016-09-05 07:30] VITALS: BP 119/57; RESP 18
[2016-09-05] MEDS: INSULIN ASPART [NOVOLOG] 3 ML PEN SC SCH ×4 (08:41→20:42)
[2016-09-05] MEDS: metFORMIN 500 MG TAB PO SCH ×2 (08:42→17:51)
[2016-09-05] MEDS: MEMANTINE 10 MG TAB PO SCH (08:42)
[2016-09-05] MEDS: DONEPEZIL 10 MG TAB PO SCH (08:43)
[2016-09-05] MEDS: ASPIRIN (EC) 81 MG TAB PO SCH (08:43)
[2016-09-05] MEDS: RANOLAZINE (SR) 500 MG TAB PO SCH ×2 (08:43→20:41)
[2016-09-05] MEDS: AMIODARONE 200 MG TAB PO SCH (08:44)
[2016-09-05] MEDS: DORZOLAMIDE/TIMOLOL 10 ML OPH BOTH EYES SCH (08:44)
[2016-09-05] MEDS: CITALOPRAM 20 MG TAB PO SCH (08:44)
[2016-09-05] MEDS: FERROUS SULFATE (EC) 325 MG TAB PO SCH (08:51)
[2016-09-05] MEDS: HEPARIN 5,000 UNIT/0.5 ML VIAL SC SCH ×2 (08:53→20:49)
[2016-09-05] MEDS: ENALAPRIL 5 MG TAB PO SCH (09:38)
--- NOTE | 2016-09-05 11:57 | CONS ---
Date/Time of Note Date/Time of Note DATE: 09/05/16 TIME: 11:56 Consult Date/Type/Reason Admit Date/Time August 30, 2016 at 19:25 Objective Vital Signs Date Time Temp Pulse Resp B/P Pulse Ox O2 Delivery O2 Flow Rate FiO2 09/04/16 20:05 97.9 80 16 119/60 96 09/03/16 07:30 Room Air Intake and Output 09/04/16 09/04/16 09/05/16 15:00 23:00 07:00 Intake Total 900 ml 400 ml Balance 900 ml 400 ml INTERDISCIPLINARY TEAM CONFERENCE BOWEL- Cont BLADDER-incont SKIN- intact OT- DRESSING-max BATHING-mod/max TOILETING-mod/max PT- BED MOBILITY-max TRANSFERS-max AMBULATION-max 3 feet SPEECH- COGNITION-mod/max DYPHAGIA-mech soft A/P- Interdisciplinary team conference held today. Please see interdisciplinary sheet. Working toward d.c. on 09/16 with post discharge follow up of physical therapy, occupational therapy. Results/Medications Result Diagram: 09/03/1630 09/03/16 0630 Results 24 hrs Laboratory Tests Test 09/04/16 12:33 09/04/16 17:36 09/04/16 20:53 09/05/16 07:57 Bedside Glucose 140 149 169 115 Medications Current Medications Acetaminophen (Tylenol Tab) 650 mg Q6H PRN PO PAIN LEVEL 1-3 OR FEVER Last administered on 09/04/16 11:59; Admin Dose 650 MG; Start 08/30/16 at 21:00 Amiodarone HCl (Cordarone) 100 mg DAILY PO Last administered on 09/05/16 08:44 ; Admin Dose 100 MG; Start 08/31/16 at 09:00 Aspirin (Halfprin) 81 mg DAILY PO Last administered on 09/05/16 08:43; Admin Dose 81 MG; Start 08/31/16 at 09:00 Carvedilol (Coreg) 3.125 mg BID PO Last administered on 09/05/16 08:52; Admin Dose 3.125 MG; Start 08/30/16 at 21:00 Citalopram Hydrobromide (Celexa) 10 mg DAILY PO Last administered on 09/05/16 08:44; Admin Dose 10 MG; Start 08/31/16 at 09:00 Docusate Sodium (Colace) 100 mg Q12H PRN PO CONSTIPATION; Start 08/30/16 at 21: 00 Donepezil HCl (Aricept) 10 mg DAILY PO Last administered on 09/05/16 08:43; Admin Dose 10 MG; Start 08/31/16 at 09:00 Dorzolamide/ Timolol (Cosopt) 1 drop DAILY BOTH EYES Last administered on 08:44; Admin Dose 1 DROP; Start 08/31/16 at 09:00 Enalapril Maleate (Vasotec) 5 mg DAILY PO Last administered on 09/05/16 09:38 ; Admin Dose 5 MG; Start 08/31/16 at 09:00 Ferrous Sulfate (Ferrous Sulfate (Ec)) 325 mg DAILY PO Last administered on 08:51; Admin Dose 325 MG; Start 08/31/16 at 09:00 Gabapentin (Neurontin) 300 mg QHS PO Last administered on 09/04/16 20:55; Admin Dose 300 MG; Start 08/30/16 at 21:00 Heparin Sodium (Porcine) (Heparin (5000 Units/0.5 ml)) 5,000 unit Q12 SC Last administered on 09/05/16 08:53; Admin Dose 5,000 UNIT; Start 08/30/16 at 21:00 Latanoprost (Xalatan) 1 drop HS BOTH EYES Last administered on 09/04/16 21:12 ; Admin Dose 1 DROP; Start 08/30/16 at 21:30 Magnesium Hydroxide (Milk Of Mag) 30 ml DAILY PRN PO CONSTIPATION; Start at 21:00 Memantine (Namenda) 10 mg DAILY PO Last administered on 09/05/16 08:42; Admin Dose 10 MG; Start 08/31/16 at 09:00 Morphine Sulfate (morphine) 2 mg Q4H PRN IV SEVERE PAIN LEVEL 7-10; Start 08/30 at 21:00 Ondansetron HCl (Zofran Inj) 4 mg Q6H PRN IV NAUSEA AND/OR VOMITING; Start at 21:00 Pantoprazole (Protonix Tab) 40 mg DAILY@06 PO Last administered on 09/05/16 05 :31; Admin Dose 40 MG; Start 08/31/16 at 06:00 Ranolazine (Ranexa) 500 mg Q12 PO Last administered on 09/05/16 08:43; Admin Dose 500 MG; Start 08/30/16 at 21:30 Zolpidem Tartrate (Ambien) 5 mg QHS PRN PO SLEEP; Start 08/30/16 at 21:00 Miscellaneous Information 1 ea NOTE XX ; Start 08/30/16 at 21:00 Glucose (Glutose) 15 gm Q15M PRN PO DECREASED GLUCOSE; Start 08/30/16 at 21:00 Glucose (Glutose) 22.5 gm Q15M PRN PO DECREASED GLUCOSE; Start 08/30/16 at 21: 00 Dextrose (D50w Syringe) 25 ml Q15M PRN IV DECREASED GLUCOSE; Start 08/30/16 at 21:00 Dextrose (D50w Syringe) 50 ml Q15M PRN IV DECREASED GLUCOSE; Start 08/30/16 at 21:00 Glucagon (Glucagen) 1 mg Q15M PRN IM DECREASED GLUCOSE; Start 08/30/16 at 21:00 Glucose (Glutose) 15 gm Q15M PRN BUCCAL DECREASED GLUCOSE; Start 08/30/16 at 21 :00 Risperidone (Risperdal) 0.25 mg HS PO Last administered on 09/04/16 20:55; Admin Dose 0.25 MG; Start 08/30/16 at 21:30 Senna (Senokot) 1 tab HS PO Last administered on 09/03/16 20:50; Admin Dose 1 TAB; Start 08/31/16 at 21:00 Acetaminophen/ Hydrocodone Bitart ([place] (5/325)) 1 tab Q4H PRN PO MODERATE PAIN LEVEL 4-6 Last administered on 09/03/16 20:50; Admin Dose 1 TAB; Start at 13:30 SHERON ABREU MD September 05, 2016 11:57
--- NOTE | 2016-09-05 16:05 | PN ---
DATE: 09/05/2016 SUBJECTIVE: Patient seen lying in bed comfortably, alert, no complaints. OBJECTIVE: VITAL SIGNS: Temperature 98.5, pulse 80, respirations 18, blood pressure 119/57, saturation 96% on room air. GENERAL: No acute distress. The patient is frail, pale. CARDIOVASCULAR: S1, S2, regular rate and rhythm. LUNGS: Clear. ABDOMEN: Soft, nontender. EXTREMITIES: No clubbing, cyanosis, or edema. Pain upon flexion of the left hip. LABORATORIES: White count is 12.4, hemoglobin 9.5, hematocrit 29. This was from 2 days ago on 08/16. Glucose level at 176, 115 and 169. MEDICATIONS: 1. [place] q.4h. p.r.n. 2. Senna 1 tab at bedtime. 3. Amiodarone 100 daily. 4. Aspirin 81 mg daily. 5. Celexa 10 mg daily. 6. Aricept 10 mg daily. 7. Cosopt eyedrops daily. 8. Vasotec 5 mg daily. 9. Ferrous sulfate 325 daily. 10. Namenda 10 mg daily. 11. Metformin 500 daily q breakfast. 12. Protonix 40 mg daily. 13. Insulin aspart per sliding scale. 14. Xalatan eyedrops as directed. 15. Ranexa 500 q.12h. 16. Risperdal 0.25 at bedtime. 17. Tylenol p.r.n. 18. Coreg 3.125 b.i.d. 19. Colace 100 p.r.n. 20. Neurontin 300 at bedtime. 21. Heparin 5000 units subq. 22. Milk of magnesia p.r.n. 23. Morphine p.r.n. 24. Zofran p.r.n. 25. Ambien p.r.n. 26. Hypoglycemia protocol p.r.n. ASSESSMENT AND PLAN: This is an 89-year-old male with history of coronary artery disease, diabetes mellitus, questionable pulmonary fibrosis, hypertension, dementia who sustained an unfortun ate fall, status post left hip fracture, status post open reduction internal fixation. 1. Status post left hip open reduction internal fixation. Pain control, physical therapy as tolera tony. 2. Dysphagia. Continue current diet. Make sure he adds Glucerna. 3. Diabetes mellitus. Will increase the dose of Metformin to b.i.d. dosing. 4. Status post urinary tract infection treated with Rocephin. 5. Mild leukocytosis. Observe no evidence of infectious process. 6. Removal of [place]ren from the left hip when deemed appropriate by Dr. Villela. 7. Coronary artery disease. Continue medical management as patient is on Coreg, aspirin, Vasotec, amiodarone and Ranexa. 8. Dementia on Aricept and Namenda. 9. Continue Protonix for gastrointestinal prophylaxis. 10. Activity as tolerated. We will follow. Dictated By: JENNI RAY/XIN Conf#: [id number] DID#: [id number]
[2016-09-05] MEDS: ACETAMINOPHEN 325 MG TAB PO PRN (16:32)
[2016-09-05 20:00] VITALS: BP 97/51; PULSE 76; RESP 16
[2016-09-05] MEDS: RISPERIDONE 0.25 MG TAB PO SCH (20:41)
[2016-09-05] MEDS: GABAPENTIN 300 MG CAP PO SCH (20:41)
[2016-09-05] MEDS: LATANOPROST 0.005% 2.5 ML OPH BOTH EYES SCH (20:41)
[2016-09-05] MEDS: HYDROCODONE/APAP (5/325) TAB PO PRN (20:41)
[2016-09-05] MEDS: SENNA TAB PO SCH (20:42)
[2016-09-06] MEDS: PANTOPRAZOLE (EC) 40 MG TAB PO SCH (06:51)
[2016-09-06 07:31] VITALS: BP 109/57; RESP 18
[2016-09-06] MEDS: INSULIN ASPART [NOVOLOG] 3 ML PEN SC SCH ×4 (07:35→21:00)
[2016-09-06] MEDS: metFORMIN 500 MG TAB PO SCH ×2 (09:24→17:48)
[2016-09-06] MEDS: RANOLAZINE (SR) 500 MG TAB PO SCH ×2 (09:25→20:44)
[2016-09-06] MEDS: MEMANTINE 10 MG TAB PO SCH (09:25)
[2016-09-06] MEDS: AMIODARONE 200 MG TAB PO SCH (09:25)
[2016-09-06] MEDS: ASPIRIN (EC) 81 MG TAB PO SCH (09:25)
[2016-09-06] MEDS: CITALOPRAM 20 MG TAB PO SCH (09:25)
[2016-09-06] MEDS: HYDROCODONE/APAP (5/325) TAB PO PRN (09:26)
[2016-09-06] MEDS: DONEPEZIL 10 MG TAB PO SCH (09:26)
[2016-09-06] MEDS: FERROUS SULFATE (EC) 325 MG TAB PO SCH (09:26)
[2016-09-06] MEDS: HEPARIN 5,000 UNIT/0.5 ML VIAL SC SCH ×2 (09:31→20:49)
[2016-09-06] MEDS: DORZOLAMIDE/TIMOLOL 10 ML OPH BOTH EYES SCH (09:34)
--- NOTE | 2016-09-06 12:09 | CONS ---
Date/Time of Note Date/Time of Note DATE: 09/06/16 TIME: 12:09 Consult Date/Type/Reason Admit Date/Time August 30, 2016 at 19:25 Subjective comfortable Objective pulm-cta abd-soft max assist Vital Signs Date Time Temp Pulse Resp B/P Pulse Ox O2 Delivery O2 Flow Rate FiO2 09/06/16 07:31 98.6 80 18 109/57 96 09/05/16 20:00 Room Air Intake and Output 09/05/16 09/05/16 09/06/16 15:00 23:00 07:00 Intake Total 880 ml 750 ml Balance 880 ml 750 ml Results/Medications Result Diagram: 09/03/16 0630 09/03/16 0630 Results 24 hrs Laboratory Tests Test 09/05/16 17:19 09/05/16 20:24 09/06/16 08:25 Bedside Glucose 147 129 105 Medications Current Medications Acetaminophen (Tylenol Tab) 650 mg Q6H PRN PO PAIN LEVEL 1-3 OR FEVER Last administered on 09/05/16 16:32; Admin Dose 650 MG; Start 08/30/16 at 21:00 Amiodarone HCl (Cordarone) 100 mg DAILY PO Last administered on 09/06/16 09:25 ; Admin Dose 100 MG; Start 08/31/16 at 09:00 Aspirin (Halfprin) 81 mg DAILY PO Last administered on 09/06/16 09:25; Admin Dose 81 MG; Start 08/31/16 at 09:00 Carvedilol (Coreg) 3.125 mg BID PO Last administered on 09/06/16 09:25; Admin Dose 3.125 MG; Start 08/30/16 at 21:00 Citalopram Hydrobromide (Celexa) 10 mg DAILY PO Last administered on 09/06/16 09:25; Admin Dose 10 MG; Start 08/31/16 at 09:00 Docusate Sodium (Colace) 100 mg Q12H PRN PO CONSTIPATION; Start 08/30/16 at 21: 00 Donepezil HCl (Aricept) 10 mg DAILY PO Last administered on 09/06/16 09:26; Admin Dose 10 MG; Start 08/31/16 at 09:00 Dorzolamide/ Timolol (Cosopt) 1 drop DAILY BOTH EYES Last administered on 09:34; Admin Dose 1 DROP; Start 08/31/16 at 09:00 Enalapril Maleate (Vasotec) 5 mg DAILY PO Last administered on 09/05/16 09:38 ; Admin Dose 5 MG; Start 08/31/16 at 09:00 Ferrous Sulfate (Ferrous Sulfate (Ec)) 325 mg DAILY PO Last administered on 09:26; Admin Dose 325 MG; Start 08/31/16 at 09:00 Gabapentin (Neurontin) 300 mg QHS PO Last administered on 09/05/16 20:41; Admin Dose 300 MG; Start 08/30/16 at 21:00 Heparin Sodium (Porcine) (Heparin (5000 Units/0.5 ml)) 5,000 unit Q12 SC Last administered on 09/06/16 09:31; Admin Dose 5,000 UNIT; Start 08/30/16 at 21:00 Latanoprost (Xalatan) 1 drop HS BOTH EYES Last administered on 09/05/16 20:41 ; Admin Dose 1 DROP; Start 08/30/16 at 21:30 Magnesium Hydroxide (Milk Of Mag) 30 ml DAILY PRN PO CONSTIPATION; Start at 21:00 Memantine (Namenda) 10 mg DAILY PO Last administered on 09/06/16 09:25; Admin Dose 10 MG; Start 08/31/16 at 09:00 Morphine Sulfate (morphine) 2 mg Q4H PRN IV SEVERE PAIN LEVEL 7-10; Start 08/30 at 21:00 Ondansetron HCl (Zofran Inj) 4 mg Q6H PRN IV NAUSEA AND/OR VOMITING; Start at 21:00 Pantoprazole (Protonix Tab) 40 mg DAILY@06 PO Last administered on 09/06/16 06 :51; Admin Dose 40 MG; Start 08/31/16 at 06:00 Ranolazine (Ranexa) 500 mg Q12 PO Last administered on 09/06/16 09:25; Admin Dose 500 MG; Start 08/30/16 at 21:30 Zolpidem Tartrate (Ambien) 5 mg QHS PRN PO SLEEP; Start 08/30/16 at 21:00 Miscellaneous Information 1 ea NOTE XX ; Start 08/30/16 at 21:00 Glucose (Glutose) 15 gm Q15M PRN PO DECREASED GLUCOSE; Start 08/30/16 at 21:00 Glucose (Glutose) 22.5 gm Q15M PRN PO DECREASED GLUCOSE; Start 08/30/16 at 21: 00 Dextrose (D50w Syringe) 25 ml Q15M PRN IV DECREASED GLUCOSE; Start 08/30/16 at 21:00 Dextrose (D50w Syringe) 50 ml Q15M PRN IV DECREASED GLUCOSE; Start 08/30/16 at 21:00 Glucagon (Glucagen) 1 mg Q15M PRN IM DECREASED GLUCOSE; Start 08/30/16 at 21:00 Glucose (Glutose) 15 gm Q15M PRN BUCCAL DECREASED GLUCOSE; Start 08/30/16 at 21 :00 Risperidone (Risperdal) 0.25 mg HS PO Last administered on 09/05/16 20:41; Admin Dose 0.25 MG; Start 08/30/16 at 21:30 Senna (Senokot) 1 tab HS PO Last administered on 09/03/16 20:50; Admin Dose 1 TAB; Start 08/31/16 at 21:00 Acetaminophen/ Hydrocodone Bitart ([place] (5/325)) 1 tab Q4H PRN PO MODERATE PAIN LEVEL 4-6 Last administered on 09/06/16 09:26; Admin Dose 1 TAB; Start at 13:30 Assessment/Plan Additional Assessment/Plan Rehab- Left comminuted intratrochanteric hip fracture status post ORIF. Continue rehab treatment Dysphagia. Congestive heart failure. Diabetes mellitus type 2. Coronary artery disease. Hypertension. Gastroesophageal reflux disease. Anemia. Urinary tract infection. SHERON ABREU MD September 06, 2016 12:09
[2016-09-06] MEDS: ENALAPRIL 5 MG TAB PO SCH (12:16)
--- NOTE | 2016-09-06 19:01 | PN ---
DATE: 09/06/2016 The patient seen and still complaining of left leg pain. Pain medication to be prescribed as needed . We are trying to avoid opioids. PHYSICAL EXAMINATION: VITAL SIGNS: Temperature 98.6, pulse 80, respirations 18, blood pressure 109/57, saturation 96%. GENERAL: No acute distress, frail, pale and thin. CARDIOVASCULAR: S1, S2, regular rate. LUNGS: Clear. ABDOMEN: Soft, nontender. EXTREMITIES: No significant pain on movement of the left lower extremity. LABORATORY DATA: No new labs. On 09/03/2016, labs noted white count is slightly high at 12.4 with hemoglobin of 9.5. Last glucose level was 105, 129 143 and overall good glycemic control. CURRENT MEDICATIONS: Reviewed and included: 1. Metformin 500 b.i.d. 2. [place] p.r.n. 3. Senna 1 tab at bedtime. 4. Amiodarone 100 mg daily. 5. Aspirin 81 mg daily. 6. Celexa 10 mg daily. 7. Aricept 10 mg daily. 8. Cosopt eyedrops daily. 9. Vasotec 5 mg daily. 10. Ferrous sulfate 25 mg daily. 11. Namenda 10 mg daily. 12. Protonix 40 mg daily. 13. Insulin [place] per sliding scale. 14. Xalatan eyedrops at bedtime both eyes. 15. Ranexa 500 q.12h. 16. Risperdal 0.25 at bedtime. 17. Tylenol p.r.n. 18. Coreg 3.125 b.i.d. 19. Colace p.r.n. 20. Neurontin 300 at bedtime. 21. Heparin 5000 units subq q.12h. 22. Hypoglycemia protocol. ASSESSMENT AND PLAN: This is an 89-year-old male with history of coronary artery disease, diabetes mellitus with questionable pulmonary tuberculosis, hypertension, dementia who sustaine d an unfortunate fall, status post left hip fracture, status post open reduction internal fixation. 1. Status post left hip open reduction internal fixation. Continue pain control, physical therapy, help with activities of daily living. 2. Dysphagia. Continue current diet and appetite has improved. Case discussed with nursing staff. 3. Diabetes mellitus. Continue metformin 500 b.i.d. Glucose levels are in the low 100s. 4. Urinary tract infection, status post Rocephin and monitor white count. 5. Mild leukocytosis. No evidence of infectious process. We will monitor. 6. Coronary artery disease. Continue medical management. The patient is on aspirin, Coreg, Vasote c, amiodarone and Ranexa. 7. Dementia on Aricept and Namenda. 8. Continue Protonix for gastrointestinal prophylaxis. 9. Activity as tolerated. 10. Disposition per rehabilitation. `11. Anemia. Continue to monitor H and H currently, no need for transfusion. Consider iron supple ments. We will follow. Dictated By: JENNI RAY/XIN Conf#: [id number] DID#: [id number]
[2016-09-06 20:00] VITALS: BP 144/67; RESP 18
[2016-09-06] MEDS: GABAPENTIN 300 MG CAP PO SCH (20:44)
[2016-09-06] MEDS: RISPERIDONE 0.25 MG TAB PO SCH (20:44)
[2016-09-06] MEDS: LATANOPROST 0.005% 2.5 ML OPH BOTH EYES SCH (20:45)
[2016-09-06] MEDS: SENNA TAB PO SCH ×2 (20:46→21:00)
[2016-09-07] MEDS: PANTOPRAZOLE (EC) 40 MG TAB PO SCH (05:27)
[2016-09-07] MEDS: INSULIN ASPART [NOVOLOG] 3 ML PEN SC SCH ×4 (07:35→21:00)
[2016-09-07] MEDS: metFORMIN 500 MG TAB PO SCH ×2 (07:53→17:46)
[2016-09-07 07:59] VITALS: BP 108/55; RESP 18
[2016-09-07] MEDS: DORZOLAMIDE/TIMOLOL 10 ML OPH BOTH EYES SCH (08:23)
[2016-09-07] MEDS: HEPARIN 5,000 UNIT/0.5 ML VIAL SC SCH ×2 (08:24→21:29)
[2016-09-07] MEDS: RANOLAZINE (SR) 500 MG TAB PO SCH ×2 (08:25→21:26)
[2016-09-07] MEDS: MEMANTINE 10 MG TAB PO SCH (08:25)
[2016-09-07] MEDS: CITALOPRAM 20 MG TAB PO SCH (08:26)
[2016-09-07] MEDS: AMIODARONE 200 MG TAB PO SCH (08:26)
[2016-09-07] MEDS: FERROUS SULFATE (EC) 325 MG TAB PO SCH (08:27)
[2016-09-07] MEDS: ENALAPRIL 5 MG TAB PO SCH (08:27)
[2016-09-07] MEDS: DONEPEZIL 10 MG TAB PO SCH (08:27)
[2016-09-07] MEDS: ASPIRIN (EC) 81 MG TAB PO SCH (08:31)
[2016-09-07 09:59] VITALS: BP 108/70; RESP 18
--- NOTE | 2016-09-07 10:15 | CONS ---
Date/Time of Note Date/Time of Note DATE: 09/07/16 TIME: 10:14 Consult Date/Type/Reason Admit Date/Time August 30, 2016 at 19:25 Subjective up for activities Objective pulm-cta abd-soft Vital Signs Date Time Temp Pulse Resp B/P Pulse Ox O2 Delivery O2 Flow Rate FiO2 09/07/16 09:59 98.0 18 108/70 100 Room Air 09/07/16 07:59 81 Intake and Output 09/06/16 09/06/16 09/07/16 15:00 23:00 07:00 Intake Total 720 ml 660 ml 400 ml Balance 720 ml 660 ml 400 ml Results/Medications Result Diagram: 09/03/16 0630 09/03/16 0630 Results 24 hrs Laboratory Tests Test 09/06/16 12:13 09/06/16 17:27 09/06/16 20:48 09/07/16 07:47 Bedside Glucose 133 105 107 98 Medications Current Medications Acetaminophen (Tylenol Tab) 650 mg Q6H PRN PO PAIN LEVEL 1-3 OR FEVER Last administered on 09/05/16 16:32; Admin Dose 650 MG; Start 08/30/16 at 21:00 Amiodarone HCl (Cordarone) 100 mg DAILY PO Last administered on 09/07/16 08:26 ; Admin Dose 100 MG; Start 08/31/16 at 09:00 Aspirin (Halfprin) 81 mg DAILY PO Last administered on 09/07/16 08:31; Admin Dose 81 MG; Start 08/31/16 at 09:00 Carvedilol (Coreg) 3.125 mg BID PO Last administered on 09/06/16 20:45; Admin Dose 3.125 MG; Start 08/30/16 at 21:00 Citalopram Hydrobromide (Celexa) 10 mg DAILY PO Last administered on 09/07/16 08:26; Admin Dose 10 MG; Start 08/31/16 at 09:00 Docusate Sodium (Colace) 100 mg Q12H PRN PO CONSTIPATION; Start 08/30/16 at 21: 00 Donepezil HCl (Aricept) 10 mg DAILY PO Last administered on 09/07/16 08:27; Admin Dose 10 MG; Start 08/31/16 at 09:00 Dorzolamide/ Timolol (Cosopt) 1 drop DAILY BOTH EYES Last administered on 08:23; Admin Dose 1 DROP; Start 08/31/16 at 09:00 Enalapril Maleate (Vasotec) 5 mg DAILY PO Last administered on 09/05/16 09:38 ; Admin Dose 5 MG; Start 08/31/16 at 09:00 Ferrous Sulfate (Ferrous Sulfate (Ec)) 325 mg DAILY PO Last administered on 08:27; Admin Dose 325 MG; Start 08/31/16 at 09:00 Gabapentin (Neurontin) 300 mg QHS PO Last administered on 09/06/16 20:44; Admin Dose 300 MG; Start 08/30/16 at 21:00 Heparin Sodium (Porcine) (Heparin (5000 Units/0.5 ml)) 5,000 unit Q12 SC Last administered on 09/07/16 08:24; Admin Dose 5,000 UNIT; Start 08/30/16 at 21:00 Latanoprost (Xalatan) 1 drop HS BOTH EYES Last administered on 09/06/16 20:45 ; Admin Dose 1 DROP; Start 08/30/16 at 21:30 Magnesium Hydroxide (Milk Of Mag) 30 ml DAILY PRN PO CONSTIPATION; Start at 21:00 Memantine (Namenda) 10 mg DAILY PO Last administered on 09/07/16 08:25; Admin Dose 10 MG; Start 08/31/16 at 09:00 Morphine Sulfate (morphine) 2 mg Q4H PRN IV SEVERE PAIN LEVEL 7-10; Start 08/30 at 21:00 Ondansetron HCl (Zofran Inj) 4 mg Q6H PRN IV NAUSEA AND/OR VOMITING; Start at 21:00 Pantoprazole (Protonix Tab) 40 mg DAILY@06 PO Last administered on 09/07/16 05 :27; Admin Dose 40 MG; Start 08/31/16 at 06:00 Ranolazine (Ranexa) 500 mg Q12 PO Last administered on 09/07/16 08:25; Admin Dose 500 MG; Start 08/30/16 at 21:30 Zolpidem Tartrate (Ambien) 5 mg QHS PRN PO SLEEP; Start 08/30/16 at 21:00 Miscellaneous Information 1 ea NOTE XX ; Start 08/30/16 at 21:00 Glucose (Glutose) 15 gm Q15M PRN PO DECREASED GLUCOSE; Start 08/30/16 at 21:00 Glucose (Glutose) 22.5 gm Q15M PRN PO DECREASED GLUCOSE; Start 08/30/16 at 21: 00 Dextrose (D50w Syringe) 25 ml Q15M PRN IV DECREASED GLUCOSE; Start 08/30/16 at 21:00 Dextrose (D50w Syringe) 50 ml Q15M PRN IV DECREASED GLUCOSE; Start 08/30/16 at 21:00 Glucagon (Glucagen) 1 mg Q15M PRN IM DECREASED GLUCOSE; Start 08/30/16 at 21:00 Glucose (Glutose) 15 gm Q15M PRN BUCCAL DECREASED GLUCOSE; Start 08/30/16 at 21 :00 Risperidone (Risperdal) 0.25 mg HS PO Last administered on 09/06/16 20:44; Admin Dose 0.25 MG; Start 08/30/16 at 21:30 Senna (Senokot) 1 tab HS PO Last administered on 09/03/16 20:50; Admin Dose 1 TAB; Start 08/31/16 at 21:00 Acetaminophen/ Hydrocodone Bitart ([place] (5/325)) 1 tab Q4H PRN PO MODERATE PAIN LEVEL 4-6 Last administered on 09/06/16 09:26; Admin Dose 1 TAB; Start at 13:30 Assessment/Plan Additional Assessment/Plan Rehab- Left comminuted intratrochanteric hip fracture status post ORIF. Continue rehab treatment plan Dysphagia. Congestive heart failure. Diabetes mellitus type 2. Coronary artery disease. Hypertension. Gastroesophageal reflux disease. Anemia. Urinary tract infection. SHERON ABREU MD September 07, 2016 10:15
[2016-09-07 13:35] LABS: ADD SCAN DIFF NO
[2016-09-07 13:36] LABS: BASOPHILS % 0.3 % (0.0-2.0); EOSINOPHILS # 0.1 10^3/ul (0.0-0.5); HEMATOCRIT 34.7 % (42.0-52.0); HEMOGLOBIN 11.4 g/dl (14.0-18.0); LYMPHOCYTES # 0.9 10^3/ul (0.8-2.9); LYMPHOCYTES % 7.5 % (15.0-51.0); MEAN CORPUSCULAR HEMOGLOBIN 30.8 pg (29.0-33.0); MEAN CORPUSCULAR HGB CONC 32.9 g/dl (32.0-37.0); MEAN CORPUSCULAR VOLUME 93.8 fl (82.0-101.0); MEAN PLATELET VOLUME 9.3 fl (7.4-10.4); MONOCYTE # 0.7 10^3/ul (0.3-0.9); MONOCYTES % 5.3 % (0.0-11.0); NEUTROPHIL # 10.5 10^3/ul (1.6-7.5); NEUTROPHILS % 84.5 % (39.0-77.0); PLATELET COUNT 411 10^3/UL (140-415); RED CELL DISTRIBUTION WIDTH 17.6 % (11.5-14.5); WHITE BLOOD COUNT 12.5 10^3/ul (4.8-10.8)
[2016-09-07 13:53] LABS: ALBUMIN 3.9 g/dl (3.3-4.9); ALBUMIN/GLOBULIN RATIO 0.86; BILIRUBIN,INDIRECT 0.3 mg/dl (0-1.1); BILIRUBIN,TOTAL 0.3 mg/dl (0.2-1.3); CALCIUM 8.6 mg/dl (8.4-10.2); CREATININE 0.96 mg/dl (0.61-1.24); POTASSIUM 4.7 mmol/L (3.5-5.1); TOTAL PROTEIN 8.4 g/dl (6.1-8.1)
--- NOTE | 2016-09-07 19:09 | PN ---
DATE: 09/07/2016 SUBJECTIVE: Patient is seen, he is eating his dinner. Patient with no specific complaints. Angel guallpa denies any pain. Noted today's labs. PHYSICAL EXAMINATION: VITAL SIGNS: Temperature 98, pulse is 81, respirations 18, blood pressure 108/70, saturation 100% o n room air. GENERAL: The patient is in no acute distress, frail, pale. CARDIOVASCULAR: S1 and S2. Distant heart sounds. LUNGS: Clear. ABDOMEN: Soft, nontender. EXTREMITIES: No clubbing, cyanosis, or edema. LABORATORY DATA: White count remains slightly high at 12.5, hemoglobin 11.4, hematocrit 35, platele t count of 411, neutrophils 85%, lymphocytes 8%. Chemistry: Sodium 131, potassium 4.7, chloride 96 , bicarbonate 25, BUN is 23, creatinine 0.96, glucose of 140, alkaline phosphatase slightly high at 158, total protein 8.4. MEDICATIONS: Reviewed, include: 1. Metformin 500 twice a day. 2. [place] p.r.n. 3. Senna 1 tab at bedtime. 4. Amiodarone 100 mg daily. 5. Aspirin 81 mg daily. 6. Celexa 10 mg daily. 5. Aricept 10 mg daily. 6. Cosopt daily. 7. Vasotec 5 mg daily. 8. Ferrous sulfate 25 daily. 9. Namenda 10 mg daily. 10. Protonix 40 mg daily. 11. Xalatan eyedrops at bedtime. 12. Insulin aspart per sliding scale. 13. Ranexa 500 q.12h. 14. Risperdal 0.25 at bedtime. 15. Coreg 3.125 b.i.d. 16. Colace 100 q. 12 p.r.n. 17. Neurontin 300 at bedtime. 18. Heparin 5000 units subcutaneous q. 12. 19. Milk of magnesia p.r.n. 20. Morphine p.r.n. 21. Zofran p.r.n. 22. Ambien p.r.n. 23. Hypoglycemia protocol. ASSESSMENT AND PLAN: This is an 89-year-old male with history of coronary artery disease, diabetes mellitus, pul monary disease, questionable pulmonary fibrosis, hypertension, dementia who sustained an unfortunate fall, status post left hip open reduction internal fixation. 1. Status post left hip open reduction internal fixation. Continue pain control, physical therapy, help with activities of daily living. 2. Dysphagia diet. The patient tolerated diet well. Speech therapy is following. 4. Diabetes mellitus. Continue oral metformin. 5. Urinary tract infection, status post Rocephin. 6. Mild leukocytosis. For some reason he has persistent mild leukocytosis since this admission and admission to [facility] [place]. This may be chronic in nature, may refer to hematology at a lat er time. Currently, no evidence of infectious process. 7. Coronary artery disease. Continue medical management with aspirin, Coreg, amiodarone, Vasotec, Ranexa. 8. Dementia. Remains on Aricept and Namenda. 9. Overall p.o. intake improved. Patient appears to be doing better. 10. Continue Protonix for gastrointestinal prophylaxis. 11. Activity as tolerated. Overall, the patient is doing well. Will discuss with family further plan of care and discharge lance nning soon. We will follow. Dictated By: JENNI RAY/XIN Conf#: [id number] DID#: [id number]
[2016-09-07 20:00] VITALS: BP 115/68; RESP 18
[2016-09-07] MEDS: RISPERIDONE 0.25 MG TAB PO SCH (21:26)
[2016-09-07] MEDS: SENNA TAB PO SCH (21:26)
[2016-09-07] MEDS: GABAPENTIN 300 MG CAP PO SCH (21:26)
[2016-09-07] MEDS: LATANOPROST 0.005% 2.5 ML OPH BOTH EYES SCH (21:37)
[2016-09-08] MEDS: PANTOPRAZOLE (EC) 40 MG TAB PO SCH (05:38)
[2016-09-08 07:30] VITALS: BP 116/56; RESP 18
[2016-09-08] MEDS: INSULIN ASPART [NOVOLOG] 3 ML PEN SC SCH ×4 (07:35→21:00)
[2016-09-08] MEDS: CITALOPRAM 20 MG TAB PO SCH (08:24)
[2016-09-08] MEDS: RANOLAZINE (SR) 500 MG TAB PO SCH ×2 (08:25→21:30)
[2016-09-08] MEDS: DONEPEZIL 10 MG TAB PO SCH (08:25)
[2016-09-08] MEDS: metFORMIN 500 MG TAB PO SCH ×2 (08:25→17:34)
[2016-09-08] MEDS: AMIODARONE 200 MG TAB PO SCH (08:25)
[2016-09-08] MEDS: HYDROCODONE/APAP (5/325) TAB PO PRN (08:25)
[2016-09-08] MEDS: FERROUS SULFATE (EC) 325 MG TAB PO SCH (08:26)
[2016-09-08] MEDS: ASPIRIN (EC) 81 MG TAB PO SCH (08:26)
[2016-09-08] MEDS: MEMANTINE 10 MG TAB PO SCH (08:26)
[2016-09-08] MEDS: DORZOLAMIDE/TIMOLOL 10 ML OPH BOTH EYES SCH (08:26)
[2016-09-08] MEDS: HEPARIN 5,000 UNIT/0.5 ML VIAL SC SCH ×2 (08:37→21:42)
[2016-09-08] MEDS: ENALAPRIL 5 MG TAB PO SCH (09:00)
--- NOTE | 2016-09-08 11:08 | CONS ---
Date/Time of Note Date/Time of Note DATE: 09/08/16 TIME: 11:08 Consult Date/Type/Reason Admit Date/Time August 30, 2016 at 19:25 Subjective Comfortable Objective pulm-cta abd-soft max assist Vital Signs Date Time Temp Pulse Resp B/P Pulse Ox O2 Delivery O2 Flow Rate FiO2 09/07/16 20:00 97.8 85 18 115/68 96 09/07/16 09:59 Room Air Intake and Output 09/07/16 09/07/16 09/08/16 15:00 23:00 07:00 Intake Total 720 ml 840 ml Output Total 10 ml Balance 710 ml 840 ml Results/Medications Result Diagram: 09/07/16 1326 09/07/16 1326 Results 24 hrs Laboratory Tests Test 09/07/16 12:18 09/07/16 13:26 09/07/16 17:29 09/07/16 21:33 Bedside Glucose 124 142 116 White Blood Count 12.5 H Red Blood Count 3.70 L Hemoglobin 11.4 L Hematocrit 34.7 #L Mean Corpuscular Volume 93.8 Mean Corpuscular Hemoglobin 30.8 Mean Corpuscular Hemoglobin Concent 32.9 Red Cell Distribution Width 17.6 H Platelet Count 411 Mean Platelet Volume 9.3 Neutrophils % 84.5 H Lymphocytes % 7.5 L Monocytes % 5.3 Eosinophils % 1.0 Basophils % 0.3 Nucleated Red Blood Cells % 0.0 Neutrophils # 10.5 H Lymphocytes # 0.9 Monocytes # 0.7 Eosinophils # 0.1 Basophils # 0.0 Nucleated Red Blood Cells # 0.0 Sodium Level 131 L Potassium Level 4.7 Chloride Level 96 L Carbon Dioxide Level 25 Anion Gap 15 Blood Urea Nitrogen 23 H Creatinine 0.96 Glucose Level 140 Calcium Level 8.6 Total Bilirubin 0.3 Direct Bilirubin 0.00 Indirect Bilirubin 0.3 Aspartate Amino Transf (AST/SGOT) 29 Alanine Aminotransferase (ALT/SGPT) 36 Alkaline Phosphatase 158 H Total Protein 8.4 H Albumin 3.9 Globulin 4.50 H Albumin/Globulin Ratio 0.86 Test 09/08/16 07:57 Bedside Glucose 109 Medications Current Medications Acetaminophen (Tylenol Tab) 650 mg Q6H PRN PO PAIN LEVEL 1-3 OR FEVER Last administered on 09/05/16t 16:32; Admin Dose 650 MG; Start 08/30/16 at 21:00 Amiodarone HCl (Cordarone) 100 mg DAILY PO Last administered on 09/08/16 08:25 ; Admin Dose 100 MG; Start 08/31/16 at 09:00 Aspirin (Halfprin) 81 mg DAILY PO Last administered on 09/08/16 08:26; Admin Dose 81 MG; Start 08/31/16 at 09:00 Carvedilol (Coreg) 3.125 mg BID PO Last administered on 09/08/16 08:26; Admin Dose 3.125 MG; Start 08/30/16 at 21:00 Citalopram Hydrobromide (Celexa) 10 mg DAILY PO Last administered on 09/08/16 08:24; Admin Dose 10 MG; Start 08/31/16 at 09:00 Docusate Sodium (Colace) 100 mg Q12H PRN PO CONSTIPATION; Start 08/30/16 at 21: 00 Donepezil HCl (Aricept) 10 mg DAILY PO Last administered on 09/08/16 08:25; Admin Dose 10 MG; Start 08/31/16 at 09:00 Dorzolamide/ Timolol (Cosopt) 1 drop DAILY BOTH EYES Last administered on 08:26; Admin Dose 1 DROP; Start 08/31/16 at 09:00 Enalapril Maleate (Vasotec) 5 mg DAILY PO Last administered on 09/05/16 09:38 ; Admin Dose 5 MG; Start 08/31/16 at 09:00 Ferrous Sulfate (Ferrous Sulfate (Ec)) 325 mg DAILY PO Last administered on 08:26; Admin Dose 325 MG; Start 08/31/16 at 09:00 Gabapentin (Neurontin) 300 mg QHS PO Last administered on 09/07/16 21:26; Admin Dose 300 MG; Start 08/30/16 at 21:00 Heparin Sodium (Porcine) (Heparin (5000 Units/0.5 ml)) 5,000 unit Q12 SC Last administered on 09/08/16 08:37; Admin Dose 5,000 UNIT; Start 08/30/16 at 21:00 Latanoprost (Xalatan) 1 drop HS BOTH EYES Last administered on 09/07/16 21:37 ; Admin Dose 1 DROP; Start 08/30/16 at 21:30 Magnesium Hydroxide (Milk Of Mag) 30 ml DAILY PRN PO CONSTIPATION; Start at 21:00 Memantine (Namenda) 10 mg DAILY PO Last administered on 09/08/16 08:26; Admin Dose 10 MG; Start 08/31/16 at 09:00 Morphine Sulfate (morphine) 2 mg Q4H PRN IV SEVERE PAIN LEVEL 7-10; Start 08/30 at 21:00 Ondansetron HCl (Zofran Inj) 4 mg Q6H PRN IV NAUSEA AND/OR VOMITING; Start at 21:00 Pantoprazole (Protonix Tab) 40 mg DAILY@06 PO Last administered on 09/08/16 05 :38; Admin Dose 40 MG; Start 08/31/16 at 06:00 Ranolazine (Ranexa) 500 mg Q12 PO Last administered on 09/08/16 08:25; Admin Dose 500 MG; Start 08/30/16 at 21:30 Zolpidem Tartrate (Ambien) 5 mg QHS PRN PO SLEEP; Start 08/30/16 at 21:00 Miscellaneous Information 1 ea NOTE XX ; Start 08/30/16 at 21:00 Glucose (Glutose) 15 gm Q15M PRN PO DECREASED GLUCOSE; Start 08/30/16 at 21:00 Glucose (Glutose) 22.5 gm Q15M PRN PO DECREASED GLUCOSE; Start 08/30/16 at 21: 00 Dextrose (D50w Syringe) 25 ml Q15M PRN IV DECREASED GLUCOSE; Start 08/30/16 at 21:00 Dextrose (D50w Syringe) 50 ml Q15M PRN IV DECREASED GLUCOSE; Start 08/30/16 at 21:00 Glucagon (Glucagen) 1 mg Q15M PRN IM DECREASED GLUCOSE; Start 08/30/16 at 21:00 Glucose (Glutose) 15 gm Q15M PRN BUCCAL DECREASED GLUCOSE; Start 08/30/16 at 21 :00 Risperidone (Risperdal) 0.25 mg HS PO Last administered on 09/07/16 21:26; Admin Dose 0.25 MG; Start 08/30/16 at 21:30 Senna (Senokot) 1 tab HS PO Last administered on 09/07/16 21:26; Admin Dose 1 TAB; Start 08/31/16 at 21:00 Acetaminophen/ Hydrocodone Bitart ([place] (5/325)) 1 tab Q4H PRN PO MODERATE PAIN LEVEL 4-6 Last administered on 09/08/16 08:25; Admin Dose 1 TAB; Start at 13:30 Assessment/Plan Additional Assessment/Plan Rehab- Left comminuted intratrochanteric hip fracture status post ORIF. Continue rehab therapy activities Dysphagia-speech Congestive heart failure. Diabetes mellitus type 2. Coronary artery disease. Hypertension. Gastroesophageal reflux disease. Anemia. Urinary tract infection. SHERON ABREU MD September 08, 2016 11:08
[2016-09-08] MEDS: ACETAMINOPHEN 325 MG TAB PO PRN (11:33)
--- NOTE | 2016-09-08 13:22 | PN ---
DATE: 09/08/2016 SUBJECTIVE: Patient seen, doing better, eating in the dining room. He likes to drink his ensure/pr otein supplements. Patient appears to have less pain in the left lower extremities. PHYSICAL EXAMINATION EXTREMITIES: VITAL SIGNS: Temperature 97.8, pulse 77, respirations 18, blood pressure 116/56, saturation 97%. GENERAL: The patient is in no acute distress. The patient is pale, frail. CARDIOVASCULAR: S1 and S2, regular rate. LUNGS: Clear. ABDOMEN: Soft, nontender. EXTREMITIES: No clubbing, cyanosis, or edema. LABORATORY DATA: White count is 12.5, hemoglobin , hematocrit 35, platelet count 411, neutroph ils 85%, lymphocytes 8%. This was yesterday. CMP yesterday was reviewed as well. Last glucose lev el 131, 109, and 116, overall good glycemic control. MEDICATIONS: Include: 1. Metformin 500 b.i.d. 2. [place] 5/325 q.4h. p.r.n. 3. Senna 1 tab at bedtime. 4. Amiodarone 100 mg daily. 5. Aspirin 81 mg daily. 6. Celexa 10 mg daily. 7. Aricept 10 mg daily. 8. Cosopt drops daily. 9. Vasotec 5 mg daily. 10. Ferrous sulfate 325 daily. 11. Namenda 10 mg daily. 12. Protonix 40 mg daily. 13. Insulin aspart q.a.c. and at bedtime per sliding scale. 14. Xalatan eyedrops at bedtime. 15. Ranexa 500 q.12h. 16. Risperidone 0.25 at bedtime. 17. Tylenol p.r.n. 18. Coreg 3.125 b.i.d. 19. Colace 100 q.12 p.r.n. 20. Neurontin 300 at bedtime. 21. Heparin 5000 units subq q.12. 22. Milk of magnesia p.r.n. 23. Morphine p.r.n. 24. Zofran p.r.n. 25. Ambien p.r.n. 26. Hypoglycemia protocol as directed. ASSESSMENT AND PLAN: 1. This is an unfortunate 89-year-old male with history of coronary artery disease, diabet es mellitus, history of pulmonary disease, hypertension, dementia who sustained an unfortunate fall, status post left hip ORIF secondary to left hip fracture. 2. Status post left hip open reduction internal fixation. Continue physical therapy, pain control, help with activities of daily living with the goal for him to go home. 3. Dysphagia. Continue soft mechanical diet. Continue Ensure as patient appears to be eating more . 4. Diabetes mellitus on metformin. Glucose levels are under control. Continue insulin sliding sca le as needed. 5. Mild leukocytosis. This appears to be chronic in nature, currently no evidence of infectious pr ocess. 6. Coronary artery disease. Continue medical management. The patient on aspirin, Coreg, amiodaron e and Vasotec and Ranexa. 7. Dementia, on Aricept and Namenda. 8. Continue Protonix for gastrointestinal prophylaxis. Overall, clinically improved. Appears to b e more alert. 9. Depression. Continue Celexa. 10. Glaucoma. Continue all eyedrops. We will follow. Dictated By: JENNI RAY/XIN Conf#: [id number] DID#: [id number]
[2016-09-08] MEDS: SENNA TAB PO SCH (21:00)
[2016-09-08 21:20] VITALS: BP 146/71; RESP 18
[2016-09-08] MEDS: GABAPENTIN 300 MG CAP PO SCH (21:30)
[2016-09-08] MEDS: RISPERIDONE 0.25 MG TAB PO SCH (21:31)
[2016-09-08] MEDS: LATANOPROST 0.005% 2.5 ML OPH BOTH EYES SCH (21:32)
[2016-09-09] MEDS: PANTOPRAZOLE (EC) 40 MG TAB PO SCH (06:36)
[2016-09-09] MEDS: INSULIN ASPART [NOVOLOG] 3 ML PEN SC SCH ×4 (07:35→20:53)
[2016-09-09 07:42] VITALS: BP 134/63; RESP 18
[2016-09-09] MEDS: DORZOLAMIDE/TIMOLOL 10 ML OPH BOTH EYES SCH (08:47)
[2016-09-09] MEDS: metFORMIN 500 MG TAB PO SCH ×2 (08:47→18:01)
[2016-09-09] MEDS: RANOLAZINE (SR) 500 MG TAB PO SCH ×2 (08:48→20:51)
[2016-09-09] MEDS: MEMANTINE 10 MG TAB PO SCH (08:48)
[2016-09-09] MEDS: AMIODARONE 200 MG TAB PO SCH (08:48)
[2016-09-09] MEDS: CITALOPRAM 20 MG TAB PO SCH (08:48)
[2016-09-09] MEDS: ASPIRIN (EC) 81 MG TAB PO SCH (08:48)
[2016-09-09] MEDS: ENALAPRIL 5 MG TAB PO SCH (08:49)
[2016-09-09] MEDS: HEPARIN 5,000 UNIT/0.5 ML VIAL SC SCH ×2 (08:49→21:26)
[2016-09-09] MEDS: FERROUS SULFATE (EC) 325 MG TAB PO SCH (08:49)
[2016-09-09] MEDS: DONEPEZIL 10 MG TAB PO SCH (08:49)
--- NOTE | 2016-09-09 09:47 | CONS ---
Date/Time of Note Date/Time of Note DATE: 09/09/16 TIME: 09:47 Consult Date/Type/Reason Admit Date/Time August 30, 2016 at 19:25 Objective Vital Signs Date Time Temp Pulse Resp B/P Pulse Ox O2 Delivery O2 Flow Rate FiO2 09/09/16 07:42 98.2 82 18 134/63 94 09/07/16 09:59 Room Air Intake and Output 09/08/16 09/08/16 09/09/16 15:00 23:00 07:00 Intake Total 620 ml 300 ml Balance 620 ml 300 ml INTERDISCIPLINARY TEAM CONFERENCE BOWEL- Cont BLADDER-Cont SKIN- intact OT- DRESSING-max BATHING-max TOILETING-max PT- BED MOBILITY-mod TRANSFERS-mod AMBULATION-max few steps W.C. MOBILITY DYPHAGIA A/P- Interdisciplinary team conference held today. Please see interdisciplinary sheet. Working toward d.c. on 09/16 with post discharge follow up of physical therapy, occupational therapy. Results/Medications Result Diagram: 09/07/16 1326 09/07/16 1326 Results 24 hrs Laboratory Tests Test 09/08/16 12:03 09/08/16 17:10 09/08/16 21:27 09/09/16 07:57 Bedside Glucose 131 129 140 115 Medications Current Medications Acetaminophen (Tylenol Tab) 650 mg Q6H PRN PO PAIN LEVEL 1-3 OR FEVER Last administered on 09/08/16 11:33; Admin Dose 650 MG; Start 08/30/16 at 21:00 Amiodarone HCl (Cordarone) 100 mg DAILY PO Last administered on 09/09/16 08:48 ; Admin Dose 100 MG; Start 08/31/16 at 09:00 Aspirin (Halfprin) 81 mg DAILY PO Last administered on 09/09/16 08:48; Admin Dose 81 MG; Start 08/31/16 at 09:00 Carvedilol (Coreg) 3.125 mg BID PO Last administered on 09/09/16 08:51; Admin Dose 3.125 MG; Start 08/30/16 at 21:00 Citalopram Hydrobromide (Celexa) 10 mg DAILY PO Last administered on 09/09/16 08:48; Admin Dose 10 MG; Start 08/31/16 at 09:00 Docusate Sodium (Colace) 100 mg Q12H PRN PO CONSTIPATION; Start 08/30/16 at 21: 00 Donepezil HCl (Aricept) 10 mg DAILY PO Last administered on 09/09/16 08:49; Admin Dose 10 MG; Start 08/31/16 at 09:00 Dorzolamide/ Timolol (Cosopt) 1 drop DAILY BOTH EYES Last administered on 08:47; Admin Dose 1 DROP; Start 08/31/16 at 09:00 Enalapril Maleate (Vasotec) 5 mg DAILY PO Last administered on 09/09/16 08:49 ; Admin Dose 5 MG; Start 08/31/16 at 09:00 Ferrous Sulfate (Ferrous Sulfate (Ec)) 325 mg DAILY PO Last administered on 08:49; Admin Dose 325 MG; Start 08/31/16 at 09:00 Gabapentin (Neurontin) 300 mg QHS PO Last administered on 09/08/16 21:30; Admin Dose 300 MG; Start 08/30/16 at 21:00 Heparin Sodium (Porcine) (Heparin (5000 Units/0.5 ml)) 5,000 unit Q12 SC Last administered on 09/09/16 08:49; Admin Dose 5,000 UNIT; Start 08/30/16 at 21:00 Latanoprost (Xalatan) 1 drop HS BOTH EYES Last administered on 09/08/16 21:32 ; Admin Dose 1 DROP; Start 08/30/16 at 21:30 Magnesium Hydroxide (Milk Of Mag) 30 ml DAILY PRN PO CONSTIPATION; Start at 21:00 Memantine (Namenda) 10 mg DAILY PO Last administered on 09/09/16 08:48; Admin Dose 10 MG; Start 08/31/16 at 09:00 Morphine Sulfate (morphine) 2 mg Q4H PRN IV SEVERE PAIN LEVEL 7-10; Start 08/30 at 21:00 Ondansetron HCl (Zofran Inj) 4 mg Q6H PRN IV NAUSEA AND/OR VOMITING; Start at 21:00 Pantoprazole (Protonix Tab) 40 mg DAILY@06 PO Last administered on 09/09/16 06 :36; Admin Dose 40 MG; Start 08/31/16 at 06:00 Ranolazine (Ranexa) 500 mg Q12 PO Last administered on 09/09/16 08:48; Admin Dose 500 MG; Start 08/30/16 at 21:30 Zolpidem Tartrate (Ambien) 5 mg QHS PRN PO SLEEP; Start 08/30/16 at 21:00 Miscellaneous Information 1 ea NOTE XX ; Start 08/30/16 at 21:00 Glucose (Glutose) 15 gm Q15M PRN PO DECREASED GLUCOSE; Start 08/30/16 at 21:00 Glucose (Glutose) 22.5 gm Q15M PRN PO DECREASED GLUCOSE; Start 08/30/16 at 21: 00 Dextrose (D50w Syringe) 25 ml Q15M PRN IV DECREASED GLUCOSE; Start 08/30/16 at 21:00 Dextrose (D50w Syringe) 50 ml Q15M PRN IV DECREASED GLUCOSE; Start 08/30/16 at 21:00 Glucagon (Glucagen) 1 mg Q15M PRN IM DECREASED GLUCOSE; Start 08/30/16 at 21:00 Glucose (Glutose) 15 gm Q15M PRN BUCCAL DECREASED GLUCOSE; Start 08/30/16 at 21 :00 Risperidone (Risperdal) 0.25 mg HS PO Last administered on 09/08/16 21:31; Admin Dose 0.25 MG; Start 08/30/16 at 21:30 Senna (Senokot) 1 tab HS PO Last administered on 09/07/16 21:26; Admin Dose 1 TAB; Start 08/31/16 at 21:00 Acetaminophen/ Hydrocodone Bitart ([place] (5/325)) 1 tab Q4H PRN PO MODERATE PAIN LEVEL 4-6 Last administered on 09/08/16 08:25; Admin Dose 1 TAB; Start at 13:30 SHERON ABREU MD September 09, 2016 09:47 SHERON ABREU MD September 09, 2016 09:47
[2016-09-09] MEDS: HYDROCODONE/APAP (5/325) TAB PO PRN (10:53)
--- NOTE | 2016-09-09 15:21 | PN ---
DATE: 09/09/2016 SUBJECTIVE: The patient is seen with no complaints. His left hip pain is basically resolved. Note d interdisciplinary team conference recommendations regarding plan of care and discharge planning. OBJECTIVE: VITAL SIGNS: Temperature 98.2, pulse 72, respirations 18, blood pressure 134/62, saturation 94% to 97% on room air. GENERAL: The patient is in no acute distress, frail, pale, cachectic. CARDIOVASCULAR: S1, S2, regular rate. LUNGS: Clear. ABDOMEN: Soft, nontender. EXTREMITIES: No clubbing, cyanosis, or edema. Upon movement of the left lower extremity, there is no pain. The patient is doing better. LABORATORY DATA: No new labs today. Labs from 09/07/2016 were reviewed. Glucose levels 116, 115, and 140. MEDICATIONS: Include 1. Metformin 500 mg b.i.d. 2. [place] p.r.n. 3. Senna 1 tab at bedtime. 4. Amiodarone 100 mg daily. 5. Aspirin 81 mg daily. 6. Celexa 10 mg daily. 7. Aricept 10 mg daily. 8. Cosopt eyedrops daily. 9. Vasotec 5 mg daily. 10. Ferrous sulfate 325 mg daily. 11. Namenda 10 mg daily. 12. Protonix 40 mg daily. 13. Insulin aspart per sliding scale. 14. Xalatan eyedrops at bedtime. 15. Ranexa 500 q. 12. 16. Risperdal 0.25 at bedtime. 17. Tylenol p.r.n. 18. Coreg 3.125 b.i.d. 19. Colace 100 q. 12 p.r.n. 20. Neurontin 300 at bedtime. 21. Heparin 5000 units subq q. 12. 22. Milk of magnesia p.r.n. 23. Morphine p.r.n. 24. Zofran p.r.n. 25. Ambien p.r.n. 26. Hypoglycemia protocol as directed. ASSESSMENT AND PLAN: This is an unfortunate 89-year-old male with history of coronary siena ry disease, diabetes mellitus, pulmonary disease, hypertension, and dementia who presented with left hip fracture status post ORIF. 1. Status post left hip open reduction internal fixation. Continue physical therapy, pain control as needed, encouraged him to participate in activities. To me, he looks better. 2. Dysphagia. Continue soft mechanical diet. He also has Ensure. 3. Diabetes mellitus. Glucose levels are good. Continue metformin. 4. Mild leukocytosis appears to be chronic in nature. We will observe. No evidence of infectious process. 5. Coronary artery disease. Continue medical management with aspirin, Coreg, amiodarone, Vasotec, and Ranexa. The patient's vital signs are stable, and the patient is chest pain free. 6. Dementia on Aricept and Namenda. 7. Continue Protonix for GI prophylaxis and Lovenox for DVT prophylaxis. 8. Depression on Celexa. 9. Clinically appears to be stable. We will continue to follow. Dictated By: JENNI RAY/XIN Conf#: [id number] DID#: [id number]
[2016-09-09 20:00] VITALS: BP 153/66; RESP 18
[2016-09-09] MEDS: GABAPENTIN 300 MG CAP PO SCH (20:51)
[2016-09-09] MEDS: SENNA TAB PO SCH (20:52)
[2016-09-09] MEDS: LATANOPROST 0.005% 2.5 ML OPH BOTH EYES SCH (20:53)
[2016-09-09] MEDS: RISPERIDONE 0.25 MG TAB PO SCH (22:03)
[2016-09-10] MEDS: PANTOPRAZOLE (EC) 40 MG TAB PO SCH (06:55)
[2016-09-10 07:30] VITALS: BP 122/60; RESP 18
[2016-09-10] MEDS: INSULIN ASPART [NOVOLOG] 3 ML PEN SC SCH ×4 (07:35→21:00)
[2016-09-10 08:07] VITALS: BP 122/60; PULSE 79; RESP 18
[2016-09-10] MEDS: RANOLAZINE (SR) 500 MG TAB PO SCH ×2 (08:55→21:20)
[2016-09-10] MEDS: FERROUS SULFATE (EC) 325 MG TAB PO SCH (08:55)
[2016-09-10] MEDS: MEMANTINE 10 MG TAB PO SCH (08:56)
[2016-09-10] MEDS: ENALAPRIL 5 MG TAB PO SCH (08:56)
[2016-09-10] MEDS: DONEPEZIL 10 MG TAB PO SCH (08:56)
[2016-09-10] MEDS: AMIODARONE 200 MG TAB PO SCH (08:56)
[2016-09-10] MEDS: ASPIRIN (EC) 81 MG TAB PO SCH (08:57)
[2016-09-10] MEDS: CITALOPRAM 20 MG TAB PO SCH (08:57)
[2016-09-10] MEDS: DORZOLAMIDE/TIMOLOL 10 ML OPH BOTH EYES SCH (08:57)
[2016-09-10] MEDS: HEPARIN 5,000 UNIT/0.5 ML VIAL SC SCH ×2 (09:01→21:18)
[2016-09-10] MEDS: HYDROCODONE/APAP (5/325) TAB PO PRN (09:01)
[2016-09-10] MEDS: metFORMIN 500 MG TAB PO SCH ×2 (09:08→17:10)
[2016-09-10] MEDS: ONDANSETRON 4 MG TAB PO PRN (12:23)
--- NOTE | 2016-09-10 13:03 | PN ---
Date/Time of Note Date/Time of Note DATE: 09/10/16 TIME: 12:59 Assessment/Plan VTE Prophylaxis VTE Prophylaxis Intervention: heparin Lines/Catheters IV Catheter Type (from Nrsg): [place] Urinary Cath still in place: No Assessment/Plan Assessment/Plan 1.Status post fall with left comminuted intratrochanteric hip fracture, status post ORIF, with impaired mobility/gait/ADLs. Continue PT/OT. Min to mod assist for bed mobility and transfers. 2. Dementia with cognitive impairments. Continue supportive treatment. 3. Acute postoperative pain. Continue pain regimen, pain controlled with prn norco. 4. Dysphagia. Continue modified diet per ST. Continue swallowing training. 5. Chronic Diastolic dysfunction heart failure. Continue medical management. Monitor volume status. 6. Diabetes mellitus type 2. Blood sugars controlled. Continue metformin. 7. Coronary artery disease. Continue medical management. 8. Hypertension. BP controlled. Continue current management. 9. Gastroesophageal reflux disease. Continue PPI. 10. Anemia. Continue iron supplementation. Continue to monitor hemoglobin/ hematocrit. 11. Nausea/Vomiting. To check labs. PRN zofran for supportive treatment. Subjective 24 Hr Interval Summary Free Text/Dictation Rehab progress note Subjective: Reports nausea and vomiting. No abdominal pain. No constipation. ROS: No chest pain, no shortness of breath, no headache, no chills. Exam/Review of Systems Vital Signs Vitals Vital Signs Date Time Temp Pulse Resp B/P Pulse Ox O2 Delivery O2 Flow Rate FiO2 09/10/16 08:07 98.5 79 18 122/60 95 Room Air Intake and Output 09/09/16 09/09/16 09/10/16 15:00 23:00 07:00 Intake Total 720 ml 360 ml Balance 720 ml 360 ml Exam General: Awake, alert, no acute distress CV: Regular rate, s1s2 Lungs: Diminished breath sounds bilaterally, no wheezing Abdomen soft, +bowel sounds Extremities without cyanosis, no edema Neuro: No new focal changes. Follows simple commands. Results Result Diagram: 09/07/16 1326 09/07/16 1326 Results 24 hrs Laboratory Tests Test 09/09/16 17:15 09/09/16 20:50 09/10/16 07:40 09/10/16 11:42 Bedside Glucose 115 124 99 139 Medications Medications Current Medications Acetaminophen (Tylenol Tab) 650 mg Q6H PRN PO PAIN LEVEL 1-3 OR FEVER Last administered on 09/08/16 11:33; Admin Dose 650 MG; Start 08/30/16 at 21:00 Amiodarone HCl (Cordarone) 100 mg DAILY PO Last administered on 09/10/16 08:56 ; Admin Dose 100 MG; Start 08/31/16 at 09:00 Aspirin (Halfprin) 81 mg DAILY PO Last administered on 09/10/16 08:57; Admin Dose 81 MG; Start 08/31/16 at 09:00 Carvedilol (Coreg) 3.125 mg BID PO Last administered on 09/10/16 08:55; Admin Dose 3.125 MG; Start 08/30/16 at 21:00 Citalopram Hydrobromide (Celexa) 10 mg DAILY PO Last administered on 09/10/16 08:57; Admin Dose 10 MG; Start 08/31/16 at 09:00 Docusate Sodium (Colace) 100 mg Q12H PRN PO CONSTIPATION; Start 08/30/16 at 21: 00 Donepezil HCl (Aricept) 10 mg DAILY PO Last administered on 09/10/16 08:56; Admin Dose 10 MG; Start 08/31/16 at 09:00 Dorzolamide/ Timolol (Cosopt) 1 drop DAILY BOTH EYES Last administered on 08:57; Admin Dose 1 DROP; Start 08/31/16 at 09:00 Enalapril Maleate (Vasotec) 5 mg DAILY PO Last administered on 09/10/16 08:56 ; Admin Dose 5 MG; Start 08/31/16 at 09:00 Ferrous Sulfate (Ferrous Sulfate (Ec)) 325 mg DAILY PO Last administered on 08:55; Admin Dose 325 MG; Start 08/31/16 at 09:00 Gabapentin (Neurontin) 300 mg QHS PO Last administered on 09/09/16 20:51; Admin Dose 300 MG; Start 08/30/16 at 21:00 Heparin Sodium (Porcine) (Heparin (5000 Units/0.5 ml)) 5,000 unit Q12 SC Last administered on 09/10/16 09:01; Admin Dose 5,000 UNIT; Start 08/30/16 at 21:00 Latanoprost (Xalatan) 1 drop HS BOTH EYES Last administered on 09/09/16 20:53 ; Admin Dose 1 DROP; Start 08/30/16 at 21:30 Magnesium Hydroxide (Milk Of Mag) 30 ml DAILY PRN PO CONSTIPATION; Start at 21:00 Memantine (Namenda) 10 mg DAILY PO Last administered on 09/10/16 08:56; Admin Dose 10 MG; Start 08/31/16 at 09:00 Morphine Sulfate (morphine) 2 mg Q4H PRN IV SEVERE PAIN LEVEL 7-10; Start 08/30 at 21:00 Ondansetron HCl (Zofran Inj) 4 mg Q6H PRN IV NAUSEA AND/OR VOMITING; Start at 21:00 Pantoprazole (Protonix Tab) 40 mg DAILY@06 PO Last administered on 09/10/16 06 :55; Admin Dose 40 MG; Start 08/31/16 at 06:00 Ranolazine (Ranexa) 500 mg Q12 PO Last administered on 09/10/16 08:55; Admin Dose 500 MG; Start 08/30/16 at 21:30 Zolpidem Tartrate (Ambien) 5 mg QHS PRN PO SLEEP; Start 08/30/16 at 21:00 Miscellaneous Information 1 ea NOTE XX ; Start 08/30/16 at 21:00 Glucose (Glutose) 15 gm Q15M PRN PO DECREASED GLUCOSE; Start 08/30/16 at 21:00 Glucose (Glutose) 22.5 gm Q15M PRN PO DECREASED GLUCOSE; Start 08/30/16 at 21: 00 Dextrose (D50w Syringe) 25 ml Q15M PRN IV DECREASED GLUCOSE; Start 08/30/16 at 21:00 Dextrose (D50w Syringe) 50 ml Q15M PRN IV DECREASED GLUCOSE; Start 08/30/16 at 21:00 Glucagon (Glucagen) 1 mg Q15M PRN IM DECREASED GLUCOSE; Start 08/30/16 at 21:00 Glucose (Glutose) 15 gm Q15M PRN BUCCAL DECREASED GLUCOSE; Start 08/30/16 at 21 :00 Risperidone (Risperdal) 0.25 mg HS PO Last administered on 09/09/16 22:03; Admin Dose 0.25 MG; Start 08/30/16 at 21:30 Senna (Senokot) 1 tab HS PO Last administered on 09/07/16 21:26; Admin Dose 1 TAB; Start 08/31/16 at 21:00 Acetaminophen/ Hydrocodone Bitart ([place] (5/325)) 1 tab Q4H PRN PO MODERATE PAIN LEVEL 4-6 Last administered on 09/10/16 09:01; Admin Dose 1 TAB; Start at 13:30 Ondansetron HCl (Zofran Tab) 4 mg Q6H PRN PO NAUSEA AND/OR VOMITING Last administered on 09/10/16 12:23; Admin Dose 4 MG; Start 09/10/16 at 12:30 AMI GROVER September 10, 2016 13:03
--- NOTE | 2016-09-10 13:17 | PN ---
DATE: 09/10/2016 SUBJECTIVE: The patient seen. Unfortunately after brushing his teeth, attempting to eat, he vomite d. He says he has slight abdominal discomfort. Case discussed with nursing staff. Otherwise, no o ther acute events. The patient stated that he ate his breakfast well. PHYSICAL EXAMINATION: VITAL SIGNS: Temperature is 98.5, pulse 79, respirations 18, blood pressure 122/60, saturation 95% on room air. GENERAL: The patient is in no acute distress. Pale, frail. CARDIOVASCULAR: S1 and S2, regular rate. LUNGS: Clear. ABDOMEN: Soft, nontender. EXTREMITIES: No clubbing, cyanosis, or edema. LABORATORY DATA: Dated 09/07/2016 were reviewed. Last glucose level 139, 99, 124. MEDICATIONS: Reviewed include: 1. Metformin 500 mg b.i.d. 2. [place] p.r.n. 3. Senna 1 tab at bedtime. 4. Amiodarone 100 daily. 5. Aspirin 81 mg daily. 6. Celexa 10 mg daily. 7. Aricept 10 mg daily. 8. Cosopt daily. 9. Vasotec 5 mg daily. 10. Ferrous sulfate 325 daily. 11. Namenda 10 daily. 12. Protonix 40 mg daily. 13. Xalatan eyedrops as directed. 14. Ranexa 500 q.12h. 15. Risperdal 0.25 at bedtime. 16. Coreg 3.125 b.i.d. 17. Colace p.r.n. 18. Neurontin 300 at bedtime. 19. Heparin 5000 units subq q.12h. 20. Morphine sulfate p.r.n. 21. Zofran p.r.n. 22. Ambien p.r.n. 23. Hypoglycemia protocol p.r.n. ASSESSMENT AND PLAN: This is an 89-year-old male with history of coronary artery disease, diabetes mellitus, hypertension, dementia, presents with left hip fracture status post open reductio n internal fixation. 1. Status post left hip fracture. Continues to need quite a lot of assistance. Continue to encour age him to participate and continue physical therapy for now. Continue with activities of daily alexus ing. 2. Nausea and vomiting. Antiemetics will be given and try to advance diet. We will monitor closel y. Follow up a.m. labs. Nurses will inform me of any other events. 3. Diabetes mellitus, well controlled on metformin. Again, the nausea and vomiting may be secondar y to medications such as metformin. We will observe. 4. Mild leukocytosis appears to be overall chronic in nature. Follow up a.m. labs. 5. Coronary artery disease. Continue medical management with aspirin, Coreg, amiodarone, Vasotec a nd Ranexa. The patient is chest pain free. 6. Dementia, on Aricept and Namenda. 7. Continue Protonix for gastrointestinal prophylaxis and Lovenox for deep venous thrombosis prophy laxis. 8. Depression, on Celexa. We will continue to monitor patient's progress. Anticipated date of discharge is possible 7. Case discussed with staff. Vital signs remain stable. We will follow. Dictated By: JENNI RAY/XIN Conf#: [id number] DID#: [id number]
[2016-09-10 20:36] VITALS: BP 153/71; PULSE 74; RESP 16
[2016-09-10] MEDS: LATANOPROST 0.005% 2.5 ML OPH BOTH EYES SCH (21:16)
[2016-09-10] MEDS: RISPERIDONE 0.25 MG TAB PO SCH (21:16)
[2016-09-10] MEDS: GABAPENTIN 300 MG CAP PO SCH (21:16)
[2016-09-10] MEDS: SENNA TAB PO SCH (21:17)
[2016-09-11] MEDS: PANTOPRAZOLE (EC) 40 MG TAB PO SCH (06:11)
[2016-09-11] MEDS: INSULIN ASPART [NOVOLOG] 3 ML PEN SC SCH ×4 (07:35→21:00)
[2016-09-11 07:53] LABS: ADD SCAN DIFF NO
[2016-09-11 08:00] VITALS: BP 121/57; PULSE 74; RESP 18
[2016-09-11 08:21] LABS: BASOPHILS % 0.4 % (0.0-2.0); EOSINOPHILS # 0.2 10^3/ul (0.0-0.5); EOSINOPHILS % 2.6 % (0.0-7.0); HEMATOCRIT 30.2 % (42.0-52.0); HEMOGLOBIN 10.3 g/dl (14.0-18.0); LYMPHOCYTES # 1.1 10^3/ul (0.8-2.9); LYMPHOCYTES % 13.4 % (15.0-51.0); MEAN CORPUSCULAR HGB CONC 34.1 g/dl (32.0-37.0); MEAN PLATELET VOLUME 10.2 fl (7.4-10.4); MONOCYTE # 0.7 10^3/ul (0.3-0.9); MONOCYTES % 8.6 % (0.0-11.0); NEUTROPHIL # 6.2 10^3/ul (1.6-7.5); NEUTROPHILS % 73.8 % (39.0-77.0); PLATELET COUNT 320 10^3/UL (140-415); RED BLOOD COUNT 3.32 10^6/ul (4.70-6.10); WHITE BLOOD COUNT 8.4 10^3/ul (4.8-10.8)
[2016-09-11 08:42] LABS: ALBUMIN 3.3 g/dl (3.3-4.9); POTASSIUM 4.7 mmol/L (3.5-5.1)
[2016-09-11 08:44] LABS: MAGNESIUM 1.9 mg/dl (1.7-2.5); PHOSPHORUS 4.1 mg/dl (2.5-4.9)
[2016-09-11 08:44] LABS: BILIRUBIN,INDIRECT 0.4 mg/dl (0-1.1); BILIRUBIN,TOTAL 0.4 mg/dl (0.2-1.3); CREATININE 1.05 mg/dl (0.61-1.24)
[2016-09-11 08:45] LABS: ALBUMIN/GLOBULIN RATIO 0.82; CALCIUM 8.2 mg/dl (8.4-10.2); TOTAL PROTEIN 7.3 g/dl (6.1-8.1)
[2016-09-11] MEDS: DORZOLAMIDE/TIMOLOL 10 ML OPH BOTH EYES SCH (08:51)
[2016-09-11] MEDS: CITALOPRAM 20 MG TAB PO SCH (08:52)
[2016-09-11] MEDS: MEMANTINE 10 MG TAB PO SCH (08:53)
[2016-09-11] MEDS: DONEPEZIL 10 MG TAB PO SCH (08:53)
[2016-09-11] MEDS: RANOLAZINE (SR) 500 MG TAB PO SCH ×2 (08:53→20:49)
[2016-09-11] MEDS: ASPIRIN (EC) 81 MG TAB PO SCH (08:53)
[2016-09-11] MEDS: FERROUS SULFATE (EC) 325 MG TAB PO SCH (08:53)
[2016-09-11] MEDS: ENALAPRIL 5 MG TAB PO SCH (08:54)
[2016-09-11] MEDS: AMIODARONE 200 MG TAB PO SCH (08:55)
[2016-09-11] MEDS: metFORMIN 500 MG TAB PO SCH ×2 (09:02→17:16)
[2016-09-11] MEDS: HEPARIN 5,000 UNIT/0.5 ML VIAL SC SCH ×2 (09:02→21:02)
--- NOTE | 2016-09-11 09:59 | PN ---
Date/Time of Note Date/Time of Note DATE: 09/11/16 TIME: 09:57 Assessment/Plan VTE Prophylaxis VTE Prophylaxis Intervention: heparin Lines/Catheters IV Catheter Type (from Nrs): Saline Lock Urinary Cath still in place: No Assessment/Plan Assessment/Plan 1.Status post fall with left comminuted intratrochanteric hip fracture, status post ORIF, with impaired mobility/gait/ADLs. Continue PT/OT. Standing balance poor to poor plus. Gait remains limited. 2. Dementia with cognitive impairments. Continue supportive treatment. 3. Acute postoperative pain. Continue pain regimen as needed. 4. Dysphagia. Continue modified diet per ST. Maintain aspiration precautions. 5. Chronic diastolic dysfunction heart failure. Continue medical management. Internal medicine following. 6. Diabetes mellitus type 2. Continue metformin. Blood sugars controlled. 7. Coronary artery disease. Continue medical management. 8. Hypertension. BP controlled. Continue current management. 9. GERD. Continue PPI. 10. Anemia. Continue iron supplementation. Continue to monitor hemoglobin/ hematocrit. 11. Hyponatremia. Worsening on labs today, medical management per internal medicine. Subjective 24 Hr Interval Summary Free Text/Dictation Rehab progress note Subjective: No acute complaints. Nursing reports no episodes of vomiting overnight or this morning. ROS: Denies abdominal pain, no constipation, no chills, no shortness of breath, no chest pain. Exam/Review of Systems Vital Signs Vitals Vital Signs Date Time Temp Pulse Resp B/P Pulse Ox O2 Delivery O2 Flow Rate FiO2 09/10/16 20:36 98.0 74 16 153/71 96 Room Air Intake and Output 09/10/16 09/10/16 09/11/16 15:00 23:00 07:00 Intake Total 200 ml 460 ml Balance 200 ml 460 ml Exam General: Awake, alert, no acute distress CV: Regular rate, s1s2 Lungs: Clear anteriorly, no wheezing Abdomen soft, nontender, +bowel sounds Extremities without cyanosis, no new swelling Neuro: No new focal changes, follows simple commands. Results Result Diagram: 09/11/16 0700 09/11/16 0628 Results 24 hrs Laboratory Tests Test 09/10/16 11:42 09/10/16 16:59 09/10/16 21:14 09/11/16 06:28 Bedside Glucose 139 128 129 Sodium Level 127 L Potassium Level 4.7 Chloride Level 94 L Carbon Dioxide Level 27 Anion Gap 11 Blood Urea Nitrogen 21 H Creatinine 1.05 Glucose Level 91 Calcium Level 8.2 L Total Bilirubin 0.4 Direct Bilirubin 0.00 Indirect Bilirubin 0.4 Aspartate Amino Transf (AST/SGOT) 25 Alanine Aminotransferase (ALT/SGPT) 28 Alkaline Phosphatase 150 H Total Protein 7.3 Albumin 3.3 Globulin 4.00 H Albumin/Globulin Ratio 0.82 Test 09/11/16 07:00 09/11/16 07:54 White Blood Count 8.4 # Red Blood Count 3.32 L Hemoglobin 10.3 L Hematocrit 30.2 L Mean Corpuscular Volume 91.0 Mean Corpuscular Hemoglobin 31.0 Mean Corpuscular Hemoglobin Concent 34.1 Red Cell Distribution Width 17.0 H Platelet Count 320 # Mean Platelet Volume 10.2 Neutrophils % 73.8 Lymphocytes % 13.4 L Monocytes % 8.6 Eosinophils % 2.6 Basophils % 0.4 Nucleated Red Blood Cells % 0.0 Neutrophils # 6.2 Lymphocytes # 1.1 Monocytes # 0.7 Eosinophils # 0.2 Basophils # 0.0 Nucleated Red Blood Cells # 0.0 Phosphorus Level 4.1 Magnesium Level 1.9 Bedside Glucose 105 Medications Medications Current Medications Acetaminophen (Tylenol Tab) 650 mg Q6H PRN PO PAIN LEVEL 1-3 OR FEVER Last administered on 09/08/16 11:33; Admin Dose 650 MG; Start 08/30/16 at 21:00 Amiodarone HCl (Cordarone) 100 mg DAILY PO Last administered on 09/11/16 08:55 ; Admin Dose 100 MG; Start 08/31/16 at 09:00 Aspirin (Halfprin) 81 mg DAILY PO Last administered on 09/11/16 08:53; Admin Dose 81 MG; Start 08/31/16 at 09:00 Carvedilol (Coreg) 3.125 mg BID PO Last administered on 09/11/16 08:55; Admin Dose 3.125 MG; Start 08/30/16 at 21:00 Citalopram Hydrobromide (Celexa) 10 mg DAILY PO Last administered on 09/11/16 08:52; Admin Dose 10 MG; Start 08/31/16 at 09:00 Docusate Sodium (Colace) 100 mg Q12H PRN PO CONSTIPATION; Start 08/30/16 at 21: 00 Donepezil HCl (Aricept) 10 mg DAILY PO Last administered on 09/11/16 08:53; Admin Dose 10 MG; Start 08/31/16 at 09:00 Dorzolamide/ Timolol (Cosopt) 1 drop DAILY BOTH EYES Last administered on 08:51; Admin Dose 1 DROP; Start 08/31/16 at 09:00 Enalapril Maleate (Vasotec) 5 mg DAILY PO Last administered on 09/11/16 08:54 ; Admin Dose 5 MG; Start 08/31/16 at 09:00 Ferrous Sulfate (Ferrous Sulfate (Ec)) 325 mg DAILY PO Last administered on 08:53; Admin Dose 325 MG; Start 08/31/16 at 09:00 Gabapentin (Neurontin) 300 mg QHS PO Last administered on 09/10/16 21:16; Admin Dose 300 MG; Start 08/30/16 at 21:00 Heparin Sodium (Porcine) (Heparin (5000 Units/0.5 ml)) 5,000 unit Q12 SC Last administered on 09/11/16 09:02; Admin Dose 5,000 UNIT; Start 08/30/16 at 21:00 Latanoprost (Xalatan) 1 drop HS BOTH EYES Last administered on 09/10/16 21:16 ; Admin Dose 1 DROP; Start 08/30/16 at 21:30 Magnesium Hydroxide (Milk Of Mag) 30 ml DAILY PRN PO CONSTIPATION; Start at 21:00 Memantine (Namenda) 10 mg DAILY PO Last administered on 09/11/16 08:53; Admin Dose 10 MG; Start 08/31/16 at 09:00 Morphine Sulfate (morphine) 2 mg Q4H PRN IV SEVERE PAIN LEVEL 7-10; Start 08/30 at 21:00 Ondansetron HCl (Zofran Inj) 4 mg Q6H PRN IV NAUSEA AND/OR VOMITING; Start at 21:00 Pantoprazole (Protonix Tab) 40 mg DAILY@06 PO Last administered on 09/11/16 06 :11; Admin Dose 40 MG; Start 08/31/16 at 06:00 Ranolazine (Ranexa) 500 mg Q12 PO Last administered on 09/11/16 08:53; Admin Dose 500 MG; Start 08/30/16 at 21:30 Zolpidem Tartrate (Ambien) 5 mg QHS PRN PO SLEEP; Start 08/30/16 at 21:00 Miscellaneous Information 1 ea NOTE XX ; Start 08/30/16 at 21:00 Glucose (Glutose) 15 gm Q15M PRN PO DECREASED GLUCOSE; Start 08/30/16 at 21:00 Glucose (Glutose) 22.5 gm Q15M PRN PO DECREASED GLUCOSE; Start 08/30/16 at 21: 00 Dextrose (D50w Syringe) 25 ml Q15M PRN IV DECREASED GLUCOSE; Start 08/30/16 at 21:00 Dextrose (D50w Syringe) 50 ml Q15M PRN IV DECREASED GLUCOSE; Start 08/30/16 at 21:00 Glucagon (Glucagen) 1 mg Q15M PRN IM DECREASED GLUCOSE; Start 08/30/16 at 21:00 Glucose (Glutose) 15 gm Q15M PRN BUCCAL DECREASED GLUCOSE; Start 08/30/16 at 21 :00 Risperidone (Risperdal) 0.25 mg HS PO Last administered on 09/10/16 21:16; Admin Dose 0.25 MG; Start 08/30/16 at 21:30 Senna (Senokot) 1 tab HS PO Last administered on 09/10/16 21:17; Admin Dose 1 TAB; Start 08/31/16 at 21:00 Acetaminophen/ Hydrocodone Bitart ([place] (5/325)) 1 tab Q4H PRN PO MODERATE PAIN LEVEL 4-6 Last administered on 09/10/16 09:01; Admin Dose 1 TAB; Start at 13:30 Ondansetron HCl (Zofran Tab) 4 mg Q6H PRN PO NAUSEA AND/OR VOMITING Last administered on 09/10/16 12:23; Admin Dose 4 MG; Start 09/10/16 at 12:30 AMI GROVER September 11, 2016 09:59
[2016-09-11] MEDS: SODIUM CHLORIDE 1 GM TAB PO SCH ×2 (14:11→20:49)
--- NOTE | 2016-09-11 14:36 | PN ---
DATE: 09/11/2016 SUBJECTIVE: The patient seen, appears to be comfortable. He likes to drink his protein shakes/supp lements. Noted worsening hyponatremia today as he has persistently been slightly hyponatremic throu ghout his [facility] hospitalization. The patient denies any pain. PHYSICAL EXAMINATION: VITAL SIGNS: Temperature 97.3, pulse 76, respirations 18, blood pressure 146/71, saturation 96% on room air. GENERAL: The patient is frail, pale. CARDIOVASCULAR: S1, S2, regular rate. LUNGS: Clear. ABDOMEN: Soft, nontender. EXTREMITIES: No clubbing, cyanosis, or edema. LABORATORIES: Today, white count is normal now at 8.4, hemoglobin 10.3, hematocrit 30, platelet cou nt 320, neutrophils 74%, lymphocytes 13%. Chemistry: Sodium is 127, low, potassium 4.7, chloride 9 4, bicarbonate 27, BUN is 21, creatinine 1.05, glucose of 91. Last glucose levels are 128 and 105. Alkaline phosphatase is better, but it is 150, still elevated. Total protein 7.3, albumin 3.3. La glucose levels are 128 and 105. MEDICATIONS: 1. Zofran 4 mg q.6h. p.r.n. 2. Glucophage 500 b.i.d. 3. [place] 5/325 q.4h. p.r.n. 4. Senna 1 tab at bedtime. 5. Amiodarone 100 daily. 6. Aspirin 81 mg daily. 7. Celexa 20 mg daily. 8. Aricept 10 mg daily. 9. ____ daily. 10. Vasotec 5 mg daily. 11. Ferrous sulfate 325 mg daily. 12. Namenda 10 mg daily. 13. Protonix 40 mg daily. 14. Xalatan eyedrops at bedtime. 15. Ranexa 500 q.12h. 16. Risperdal 0.25 at bedtime. 17. Tylenol p.r.n. 18. Coreg 3.125 b.i.d. 19. Colace 100 q.12h. p.r.n. 20. Neurontin 00 at bedtime. 21. Heparin 5000 units subQ q.12h. 22. Milk of magnesia p.r.n. 23. Morphine p.r.n. 24. Zofran p.r.n. 25. Ambien p.rIvonnen. 26. Hypoglycemia protocol as directed. ASSESSMENT AND PLAN: This is an 89-year-old male with history of coronary artery disease, diabetes mellitus, hypertension, dementia who presented with left hip fracture status post open redu ction internal fixation. 1. Status post left hip open reduction internal fixation. Continue physical therapy, help with act ivities of daily living, pain control as needed. 2. Hyponatremia, currently he does have an IV. This may be secondary to dehydration versus syndrom e of inappropriate antidiuretic hormone secretion versus other. Will start the patient on sodium ta blets and observe. 3. Nausea and vomiting, resolved. This may be from polypharmacy versus other. 4. Diabetes mellitus, well controlled on metformin. 5. Leukocytosis, resolved, likely acute phase reaction. 6. Coronary artery disease. Continue medical management on aspirin, Coreg, amiodarone, Vasotec, __ __ Ranexa. The patient is chest pain free. 7. Anemia. Continue iron supplements. No need for transfusion. 8. Dementia, on Aricept and Namenda. 9. Continue Protonix for gastrointestinal prophylaxis. 11. Depression. Continue Celexa. 12. Continue encouragement with physical therapy. We will follow. Dictated By: JENNI RAY/XIN Conf#: [id number] DID#: [id number]
[2016-09-11 20:07] VITALS: BP 124/68; RESP 18
[2016-09-11] MEDS: GABAPENTIN 300 MG CAP PO SCH (20:49)
[2016-09-11] MEDS: SENNA TAB PO SCH (20:49)
[2016-09-11] MEDS: RISPERIDONE 0.25 MG TAB PO SCH (20:50)
[2016-09-11] MEDS: LATANOPROST 0.005% 2.5 ML OPH BOTH EYES SCH (21:03)
[2016-09-12] MEDS: PANTOPRAZOLE (EC) 40 MG TAB PO SCH (06:19)
[2016-09-12 06:21] VITALS: BP 114/52; PULSE 78
[2016-09-12 07:30] VITALS: BP 113/58; RESP 18
[2016-09-12] MEDS: INSULIN ASPART [NOVOLOG] 3 ML PEN SC SCH ×4 (07:35→20:33)
[2016-09-12] MEDS: SODIUM CHLORIDE 1 GM TAB PO SCH ×3 (08:48→20:33)
[2016-09-12] MEDS: CITALOPRAM 20 MG TAB PO SCH (08:48)
[2016-09-12] MEDS: DONEPEZIL 10 MG TAB PO SCH (08:48)
[2016-09-12] MEDS: HYDROCODONE/APAP (5/325) TAB PO PRN ×2 (08:49→18:01)
[2016-09-12] MEDS: MEMANTINE 10 MG TAB PO SCH (08:49)
[2016-09-12] MEDS: ASPIRIN (EC) 81 MG TAB PO SCH (08:49)
[2016-09-12] MEDS: FERROUS SULFATE (EC) 325 MG TAB PO SCH (08:49)
[2016-09-12] MEDS: HEPARIN 5,000 UNIT/0.5 ML VIAL SC SCH ×2 (08:52→20:42)
[2016-09-12] MEDS: metFORMIN 500 MG TAB PO SCH ×2 (08:58→17:42)
[2016-09-12] MEDS: DORZOLAMIDE/TIMOLOL 10 ML OPH BOTH EYES SCH (09:00)
[2016-09-12] MEDS: RANOLAZINE (SR) 500 MG TAB PO SCH ×2 (09:00→20:33)
[2016-09-12] MEDS: AMIODARONE 200 MG TAB PO SCH (09:00)
[2016-09-12] MEDS: ENALAPRIL 5 MG TAB PO SCH (09:00)
--- NOTE | 2016-09-12 10:55 | PN ---
Date/Time of Note Date/Time of Note DATE: 09/12/16 TIME: 10:53 Assessment/Plan VTE Prophylaxis VTE Prophylaxis Intervention: heparin Lines/Catheters IV Catheter Type (from Nrsg): Saline Lock Urinary Cath still in place: No Assessment/Plan Assessment/Plan 1.Status post fall with left comminuted intratrochanteric hip fracture, status post ORIF, with impaired mobility/gait/ADLs. Continue PT/OT. Grooming improving with SBA, upper body dressing improving to min assist. Total assistance for lower body dressing. 2. Dementia with cognitive impairments. Continue supportive treatment. 3. Acute postoperative pain. Pain controlled. Continue prn norco. 4. Dysphagia. Continue modified diet per ST. Continue ST. 5. Chronic diastolic dysfunction heart failure. Monitor volume status. 6. Diabetes mellitus type 2. Continue metformin. Blood sugars controlled. 7. Coronary artery disease. Continue medical management. 8. Hypertension. BP controlled with current medical management. 9. Gastroesophageal reflux disease. Continue PPI. 10. Anemia. On iron supplementation. Continue to monitor hemoglobin/hematocrit. 11. Hyponatremia. Started on NaCl tabs per internal medicine, monitor Na levels. Subjective 24 Hr Interval Summary Free Text/Dictation Rehab progress note Subjective: Reports feeling well. Minimal pain in left hip. Denies abdominal pain, no nausea or vomiting. ROS: Denies headache, no dizziness, no chills, no shortness of breath, no chest pain. Exam/Review of Systems Vital Signs Vitals Vital Signs Date Time Temp Pulse Resp B/P Pulse Ox O2 Delivery O2 Flow Rate FiO2 09/12/16 06:21 78 114/52 09/11/16 20:07 98.1 18 95 09/11/16 08:00 Room Air Intake and Output 09/11/16 09/11/16 09/12/16 15:00 23:00 07:00 Intake Total 300 ml 200 ml Balance 300 ml 200 ml Exam General: Awake, alert, no acute distress CV: Regular rate, s1s2 Lungs: Clear to auscultation, no wheezing Abdomen soft, nontender, +bowel sounds Extremities without cyanosis, no new swelling Neuro: Wiggles toes on the left. Antigravity strength RLE. No new sensory changes. Results Result Diagram: 09/11/16 0700 09/11/16 0628 Results 24 hrs Laboratory Tests Test 09/11/16 11:54 09/11/16 17:15 09/11/16 20:47 09/12/16 07:57 Bedside Glucose 128 126 144 112 Medications Medications Current Medications Acetaminophen (Tylenol Tab) 650 mg Q6H PRN PO PAIN LEVEL 1-3 OR FEVER Last administered on 09/08/16 11:33; Admin Dose 650 MG; Start 08/30/16 at 21:00 Amiodarone HCl (Cordarone) 100 mg DAILY PO Last administered on 09/11/16 08:55 ; Admin Dose 100 MG; Start 08/31/16 at 09:00 Aspirin (Halfprin) 81 mg DAILY PO Last administered on 09/12/16 08:49; Admin Dose 81 MG; Start 08/31/16 at 09:00 Carvedilol (Coreg) 3.125 mg BID PO Last administered on 09/11/16 20:50; Admin Dose 3.125 MG; Start 08/30/16 at 21:00 Citalopram Hydrobromide (Celexa) 10 mg DAILY PO Last administered on 09/12/16 08:48; Admin Dose 10 MG; Start 08/31/16 at 09:00 Docusate Sodium (Colace) 100 mg Q12H PRN PO CONSTIPATION; Start 08/30/16 at 21: 00 Donepezil HCl (Aricept) 10 mg DAILY PO Last administered on 09/12/16 08:48; Admin Dose 10 MG; Start 08/31/16 at 09:00 Dorzolamide/ Timolol (Cosopt) 1 drop DAILY BOTH EYES Last administered on 08:51; Admin Dose 1 DROP; Start 08/31/16 at 09:00 Enalapril Maleate (Vasotec) 5 mg DAILY PO Last administered on 09/11/16 08:54 ; Admin Dose 5 MG; Start 08/31/16 at 09:00 Ferrous Sulfate (Ferrous Sulfate (Ec)) 325 mg DAILY PO Last administered on 08:49; Admin Dose 325 MG; Start 08/31/16 at 09:00 Gabapentin (Neurontin) 300 mg QHS PO Last administered on 09/11/16 20:49; Admin Dose 300 MG; Start 08/30/16 at 21:00 Heparin Sodium (Porcine) (Heparin (5000 Units/0.5 ml)) 5,000 unit Q12 SC Last administered on 09/12/16 08:52; Admin Dose 5,000 UNIT; Start 08/30/16 at 21:00 Latanoprost (Xalatan) 1 drop HS BOTH EYES Last administered on 09/11/16 21:03 ; Admin Dose 1 DROP; Start 08/30/16 at 21:30 Magnesium Hydroxide (Milk Of Mag) 30 ml DAILY PRN PO CONSTIPATION; Start at 21:00 Memantine (Namenda) 10 mg DAILY PO Last administered on 09/12/16 08:49; Admin Dose 10 MG; Start 08/31/16 at 09:00 Morphine Sulfate (morphine) 2 mg Q4H PRN IV SEVERE PAIN LEVEL 7-10; Start 08/30 at 21:00 Ondansetron HCl (Zofran Inj) 4 mg Q6H PRN IV NAUSEA AND/OR VOMITING; Start at 21:00 Pantoprazole (Protonix Tab) 40 mg DAILY@06 PO Last administered on 09/12/16 06 :19; Admin Dose 40 MG; Start 08/31/16 at 06:00 Ranolazine (Ranexa) 500 mg Q12 PO Last administered on 09/11/16 20:49; Admin Dose 500 MG; Start 08/30/16 at 21:30 Zolpidem Tartrate (Ambien) 5 mg QHS PRN PO SLEEP; Start 08/30/16 at 21:00 Miscellaneous Information 1 ea NOTE XX ; Start 08/30/16 at 21:00 Glucose (Glutose) 15 gm Q15M PRN PO DECREASED GLUCOSE; Start 08/30/16 at 21:00 Glucose (Glutose) 22.5 gm Q15M PRN PO DECREASED GLUCOSE; Start 08/30/16 at 21: 00 Dextrose (D50w Syringe) 25 ml Q15M PRN IV DECREASED GLUCOSE; Start 08/30/16 at 21:00 Dextrose (D50w Syringe) 50 ml Q15M PRN IV DECREASED GLUCOSE; Start 08/30/16 at 21:00 Glucagon (Glucagen) 1 mg Q15M PRN IM DECREASED GLUCOSE; Start 08/30/16 at 21:00 Glucose (Glutose) 15 gm Q15M PRN BUCCAL DECREASED GLUCOSE; Start 08/30/16 at 21 :00 Risperidone (Risperdal) 0.25 mg HS PO Last administered on 09/11/16 20:50; Admin Dose 0.25 MG; Start 08/30/16 at 21:30 Senna (Senokot) 1 tab HS PO Last administered on 09/11/16 20:49; Admin Dose 1 TAB; Start 08/31/16 at 21:00 Acetaminophen/ Hydrocodone Bitart ([place] (5/325)) 1 tab Q4H PRN PO MODERATE PAIN LEVEL 4-6 Last administered on 09/12/16 08:49; Admin Dose 1 TAB; Start at 13:30 Ondansetron HCl (Zofran Tab) 4 mg Q6H PRN PO NAUSEA AND/OR VOMITING Last administered on 09/10/16 12:23; Admin Dose 4 MG; Start 09/10/16 at 12:30 Sodium Chloride (Nacl) 1 gm TID PO Last administered on 09/12/16 08:48; Admin Dose 1 GM; Start 09/11/16 at 13:00 AMI GROVER September 12, 2016 10:55
--- NOTE | 2016-09-12 13:11 | PN ---
DATE: 09/12/2016 SUBJECTIVE: Patient seen. The patient is sitting in the dining room with no complaints. Per [facility] staff, patient overall appetite is adequate. No specific events and no complaints. Sugar levels are in the low 100s. PHYSICAL EXAMINATION: VITAL SIGNS: Temperature 98.3, pulse 85, respirations 18, blood pressure 116/58, saturation 94%. GENERAL: The patient is in no acute distress. Frail, pale. CARDIOVASCULAR: Positive S1 and S2, regular rate and rhythm. LUNGS: Clear. ABDOMEN: Soft, nontender. EXTREMITIES: No clubbing, cyanosis, or edema. LABORATORY DATA: No new labs today. Yesterday, sodium was low at 127. MEDICATIONS: Reviewed include: 1. Sodium chloride 1 gram t.i.d. 2. Zofran p.r.n. 3. Metformin 500 b.i.d. 4. [place] 5/325 q.4h. p.r.n. 5. Senna 1 tab at bedtime. 6. Amiodarone to 100 mg daily. 7. Aspirin 81 mg daily. 8. Celexa 10 mg daily. 9. Aricept 10 mg daily. 10. Cosopt daily. 11. Vasotec 5 mg daily. 12. Ferrous sulfate 325 daily. 13. Namenda 10 mg daily. 14. Protonix 40 mg daily. 15. Xalatan eyedrops nightly. 16. Ranexa 500 q.12h. 17. Risperdal 0.25 nightly. . 18. Tylenol p.r.n. 19. Coreg 3.125 b.i.d. 20. Colace p.r.n. 21. Neurontin 300 at bedtime. 22. Heparin 5000 units subq q.12h. 23. Morphine p.r.n. 24. Zofran p.r.n. 25. Ambien p.r.n. 26. Hypoglycemia protocol as directed. ASSESSMENT AND PLAN: 1. This is an 89-year-old male with history of coronary artery disease, diabetes mellitus, hypertension, dementia, presented with left hip fracture status post open reduction internal fixati on. 2. Status post left hip open reduction internal fixation. Continue physical therapy, pain control, help with activities of daily living. Overall, the patient is doing better. 3. Hyponatremia. Follow up sodium soon. This may be due to syndrome of inappropriate antidiuretic hormone versus other. Start the patient on sodium tablets and we will monitor. 4. Diabetes mellitus, controlled on Metformin. 5. Leukocytosis, resolved status post treatment for urinary tract infection. 6. Coronary artery disease. Continue medical management, as patient is on Coreg, amiodarone, Vasot ec, Ranexa. 7. Anemia. Continue iron supplements, H and H has been stable. 8. Dementia, on Aricept and Namenda. 9. Continue Protonix for gastrointestinal prophylaxis. 10. Depression, on Celexa. Mood is stable. 11. Glaucoma. Continue all eyedrops. 12. Insomnia. He has been on Risperdal low dose at night. 13. Continue stool softeners. We will follow. Dictated By: JENNI RAY/XIN Conf#: [id number] DID#: [id number]
[2016-09-12 20:00] VITALS: BP 134/61; RESP 18
[2016-09-12] MEDS: LATANOPROST 0.005% 2.5 ML OPH BOTH EYES SCH (20:32)
[2016-09-12] MEDS: RISPERIDONE 0.25 MG TAB PO SCH (20:33)
[2016-09-12] MEDS: SENNA TAB PO SCH (20:33)
[2016-09-12] MEDS: GABAPENTIN 300 MG CAP PO SCH (20:33)
[2016-09-13] MEDS: PANTOPRAZOLE (EC) 40 MG TAB PO SCH (05:29)
[2016-09-13 05:31] VITALS: BP 115/55; PULSE 77
[2016-09-13] MEDS: INSULIN ASPART [NOVOLOG] 3 ML PEN SC SCH ×4 (07:35→21:00)
[2016-09-13 07:37] VITALS: BP 118/59; PULSE 80; RESP 18
[2016-09-13] MEDS: metFORMIN 500 MG TAB PO SCH ×2 (07:56→17:45)
[2016-09-13] MEDS: RANOLAZINE (SR) 500 MG TAB PO SCH ×2 (09:01→21:02)
[2016-09-13] MEDS: MEMANTINE 10 MG TAB PO SCH (09:01)
[2016-09-13] MEDS: FERROUS SULFATE (EC) 325 MG TAB PO SCH (09:01)
[2016-09-13] MEDS: ENALAPRIL 5 MG TAB PO SCH (09:02)
[2016-09-13] MEDS: ASPIRIN (EC) 81 MG TAB PO SCH (09:02)
[2016-09-13] MEDS: SODIUM CHLORIDE 1 GM TAB PO SCH ×3 (09:02→21:02)
[2016-09-13] MEDS: AMIODARONE 200 MG TAB PO SCH (09:02)
[2016-09-13] MEDS: DONEPEZIL 10 MG TAB PO SCH (09:02)
[2016-09-13] MEDS: CITALOPRAM 20 MG TAB PO SCH (09:02)
[2016-09-13] MEDS: DORZOLAMIDE/TIMOLOL 10 ML OPH BOTH EYES SCH (09:03)
[2016-09-13] MEDS: HEPARIN 5,000 UNIT/0.5 ML VIAL SC SCH ×2 (09:04→21:05)
--- NOTE | 2016-09-13 12:43 | CONS ---
Date/Time of Note Date/Time of Note DATE: 09/13/16 TIME: 12:41 Consult Date/Type/Reason Admit Date/Time August 30, 2016 at 19:25 Subjective Comfortable Objective Vital Signs Date Time Temp Pulse Resp B/P Pulse Ox O2 Delivery O2 Flow Rate FiO2 09/13/16 07:37 98.3 80 18 118/59 94 Room Air Intake and Output 09/12/16 09/12/16 09/13/16 14:59 22:59 06:59 Intake Total 720 ml 1100 ml Balance 720 ml 1100 ml INTERDISCIPLINARY TEAM CONFERENCE BOWEL- Cont BLADDER-Cont SKIN- intact OT- DRESSING-min/mod BATHING-min/mod TOILETING-min/mod PT- BED MOBILITY-mod TRANSFERS-mod AMBULATION-mod 8 feet W.C. MOBILITY- min SPEECH- DYPHAGIA A/P- Interdisciplinary team conference held today. Please see interdisciplinary sheet. Working toward d.c. on 09/16 with post discharge follow up of physical therapy, occupational therapy. Results/Medications Result Diagram: 09/11/16 0700 09/11/16 0628 Results 24 hrs Laboratory Tests Test 09/12/16 17:30 09/12/16 20:22 09/13/16 07:38 09/13/16 11:54 Bedside Glucose 117 179 106 147 Medications Current Medications Acetaminophen (Tylenol Tab) 650 mg Q6H PRN PO PAIN LEVEL 1-3 OR FEVER Last administered on 09/08/16 11:33; Admin Dose 650 MG; Start 08/30/16 at 21:00 Amiodarone HCl (Cordarone) 100 mg DAILY PO Last administered on 09/13/16 09:02 ; Admin Dose 100 MG; Start 08/31/16 at 09:00 Aspirin (Halfprin) 81 mg DAILY PO Last administered on 09/13/16 09:02; Admin Dose 81 MG; Start 08/31/16 at 09:00 Carvedilol (Coreg) 3.125 mg BID PO Last administered on 09/13/16 09:03; Admin Dose 3.125 MG; Start 08/30/16 at 21:00 Citalopram Hydrobromide (Celexa) 10 mg DAILY PO Last administered on 09/13/16 09:02; Admin Dose 10 MG; Start 08/31/16 at 09:00 Docusate Sodium (Colace) 100 mg Q12H PRN PO CONSTIPATION; Start 08/30/16 at 21: 00 Donepezil HCl (Aricept) 10 mg DAILY PO Last administered on 09/13/16 09:02; Admin Dose 10 MG; Start 08/31/16 at 09:00 Dorzolamide/ Timolol (Cosopt) 1 drop DAILY BOTH EYES Last administered on 09:03; Admin Dose 1 DROP; Start 08/31/16 at 09:00 Enalapril Maleate (Vasotec) 5 mg DAILY PO Last administered on 09/13/16 09:02 ; Admin Dose 5 MG; Start 08/31/16 at 09:00 Ferrous Sulfate (Ferrous Sulfate (Ec)) 325 mg DAILY PO Last administered on 09:01; Admin Dose 325 MG; Start 08/31/16 at 09:00 Gabapentin (Neurontin) 300 mg QHS PO Last administered on 09/12/16 20:33; Admin Dose 300 MG; Start 08/30/16 at 21:00 Heparin Sodium (Porcine) (Heparin (5000 Units/0.5 ml)) 5,000 unit Q12 SC Last administered on 09/13/16 09:04; Admin Dose 5,000 UNIT; Start 08/30/16 at 21:00 Latanoprost (Xalatan) 1 drop HS BOTH EYES Last administered on 09/12/16 20:32 ; Admin Dose 1 DROP; Start 08/30/16 at 21:30 Magnesium Hydroxide (Milk Of Mag) 30 ml DAILY PRN PO CONSTIPATION; Start at 21:00 Memantine (Namenda) 10 mg DAILY PO Last administered on 09/13/16 09:01; Admin Dose 10 MG; Start 08/31/16 at 09:00 Morphine Sulfate (morphine) 2 mg Q4H PRN IV SEVERE PAIN LEVEL 7-10; Start 08/30 at 21:00 Ondansetron HCl (Zofran Inj) 4 mg Q6H PRN IV NAUSEA AND/OR VOMITING; Start at 21:00 Pantoprazole (Protonix Tab) 40 mg DAILY@06 PO Last administered on 09/13/16 05 :29; Admin Dose 40 MG; Start 08/31/16 at 06:00 Ranolazine (Ranexa) 500 mg Q12 PO Last administered on 09/13/16 09:01; Admin Dose 500 MG; Start 08/30/16 at 21:30 Zolpidem Tartrate (Ambien) 5 mg QHS PRN PO SLEEP; Start 08/30/16 at 21:00 Miscellaneous Information 1 ea NOTE XX ; Start 08/30/16 at 21:00 Glucose (Glutose) 15 gm Q15M PRN PO DECREASED GLUCOSE; Start 08/30/16 at 21:00 Glucose (Glutose) 22.5 gm Q15M PRN PO DECREASED GLUCOSE; Start 08/30/16 at 21: 00 Dextrose (D50w Syringe) 25 ml Q15M PRN IV DECREASED GLUCOSE; Start 08/30/16 at 21:00 Dextrose (D50w Syringe) 50 ml Q15M PRN IV DECREASED GLUCOSE; Start 08/30/16 at 21:00 Glucagon (Glucagen) 1 mg Q15M PRN IM DECREASED GLUCOSE; Start 08/30/16 at 21:00 Glucose (Glutose) 15 gm Q15M PRN BUCCAL DECREASED GLUCOSE; Start 08/30/16 at 21 :00 Risperidone (Risperdal) 0.25 mg HS PO Last administered on 09/12/16 20:33; Admin Dose 0.25 MG; Start 08/30/16 at 21:30 Senna (Senokot) 1 tab HS PO Last administered on 09/11/16 20:49; Admin Dose 1 TAB; Start 08/31/16 at 21:00 Acetaminophen/ Hydrocodone Bitart ([place] (5/325)) 1 tab Q4H PRN PO MODERATE PAIN LEVEL 4-6 Last administered on 09/12/16 18:01; Admin Dose 1 TAB; Start at 13:30 Ondansetron HCl (Zofran Tab) 4 mg Q6H PRN PO NAUSEA AND/OR VOMITING Last administered on 09/10/16 12:23; Admin Dose 4 MG; Start 09/10/16 at 12:30 Sodium Chloride (Nacl) 1 gm TID PO Last administered on 09/13/16 09:02; Admin Dose 1 GM; Start 09/11/16 at 13:00 SHERON ABREU MD September 13, 2016 12:43
[2016-09-13] MEDS: ONDANSETRON 4 MG TAB PO PRN (13:15)
--- NOTE | 2016-09-13 15:48 | PN ---
DATE: 09/13/2016 SUBJECTIVE: The patient is seen. The patient is comfortable, resting in bed. OBJECTIVE: VITAL SIGNS: Temperature 98.3, pulse 80, respirations 18, blood pressure 118/59, saturation 94% on room air. GENERAL: The patient is in no acute distress, frail, pale. CARDIOVASCULAR: S1, S2, regular rate and rhythm. LUNGS: Clear. ABDOMEN: Soft, nontender. EXTREMITIES: No clubbing, cyanosis, or edema. LABORATORY DATA: Dated 09/11/2016 were reviewed, and had a normal white count of 8.4. Last glucose level 147, 106 and 179. MEDICATIONS: Reviewed include: 1. Sodium chloride 1 gram t.i.d. 2. Zofran p.r.n. 3. Glucophage 500 b.i.d. 4. [place] p.r.n. 5. Senna 1 tab at bedtime. 6. Amiodarone 100 daily. 7. Aspirin 81 mg daily. 8. Celexa 10 mg daily. 9. Aricept 10 mg daily. 10. Cosopt eyedrops daily. 11. Vasotec 5 mg daily. 12. Ferrous sulfate 325 daily. 13. Namenda 10 mg daily. 14. Protonix 40 mg daily. 15. Xalatan eyedrops at bedtime. 16. Insulin aspart per sliding scale. 17. Ranexa 500 q.12h. 18. Risperdal 0.25 at bedtime. 19. Tylenol p.r.n. 20. Coreg 3.125 b.i.d. 21. Colace 100 q.12h. p.r.n. 22. Neurontin 300 at bedtime. 23. Heparin 5000 units subcutaneous q.12h. 24. Milk of magnesia p.r.n. 25. Morphine p.r.n. 26. Zofran p.r.n. 27. Ambien p.r.n. 28. Hypoglycemia protocol as directed. ASSESSMENT AND PLAN: This is an 89-year-old with history of coronary artery disease, diabetes zeferino itus, hypertension, dementia who presented with left hip fracture, status post open reduction paralegal internship al fixation. 1. Status post left hip open reduction internal fixation. Continue physical therapy, pain control, help with activities of daily living. 2. Hyponatremia, on sodium tablets. Continue for now. We will follow up sodium levels in a.m. 3. Diabetes mellitus. Continue metformin. 4. Leukocytosis, resolved. Status post treatment for urinary tract infection. 5. Coronary artery disease. Continue medical management. The patient is on amiodarone, Coreg, Vas otec and Ranexa. 6. Anemia. Hemoglobin and hematocrit have been stable. 7. Dementia. Continue Aricept and Namenda. 8. Depression, on Celexa. 9. Encourage him to eat. He does drink the Ensure well. 10. Continue stool softeners. 11. Glaucoma, on multiple eyedrops. 12. Discharge planning possible 09/16/2016, to follow up with discharge planning with physical metallurgist apy and occupational therapy. 13. Diabetes mellitus. Continue metformin and insulin sliding scale. Dictated By: JENNI RAY/XIN Conf#: [id number] DID#: [id number]
[2016-09-13 19:49] VITALS: BP 132/62; RESP 18
[2016-09-13] MEDS: LATANOPROST 0.005% 2.5 ML OPH BOTH EYES SCH ×2 (21:00→21:37)
[2016-09-13] MEDS: RISPERIDONE 0.25 MG TAB PO SCH (21:02)
[2016-09-13] MEDS: GABAPENTIN 300 MG CAP PO SCH (21:02)
[2016-09-13] MEDS: SENNA TAB PO SCH (21:02)
[2016-09-14] MEDS: PANTOPRAZOLE (EC) 40 MG TAB PO SCH (05:45)
[2016-09-14 06:50] LABS: ADD SCAN DIFF NO
[2016-09-14 06:53] LABS: BASOPHILS % 0.4 % (0.0-2.0); EOSINOPHILS # 0.3 10^3/ul (0.0-0.5); EOSINOPHILS % 4.1 % (0.0-7.0); HEMATOCRIT 30.3 % (42.0-52.0); LYMPHOCYTES # 1.1 10^3/ul (0.8-2.9); LYMPHOCYTES % 14.8 % (15.0-51.0); MEAN CORPUSCULAR HEMOGLOBIN 30.5 pg (29.0-33.0); MEAN CORPUSCULAR VOLUME 92.4 fl (82.0-101.0); MEAN PLATELET VOLUME 9.8 fl (7.4-10.4); MONOCYTE # 0.6 10^3/ul (0.3-0.9); MONOCYTES % 7.9 % (0.0-11.0); NEUTROPHIL # 5.5 10^3/ul (1.6-7.5); NEUTROPHILS % 71.8 % (39.0-77.0); PLATELET COUNT 286 10^3/UL (140-415); RED BLOOD COUNT 3.28 10^6/ul (4.70-6.10); RED CELL DISTRIBUTION WIDTH 17.6 % (11.5-14.5); WHITE BLOOD COUNT 7.6 10^3/ul (4.8-10.8)
[2016-09-14 07:11] LABS: POTASSIUM 4.6 mmol/L (3.5-5.1)
[2016-09-14 07:14] LABS: CREATININE 1.02 mg/dl (0.61-1.24)
[2016-09-14 07:15] LABS: CALCIUM 8.2 mg/dl (8.4-10.2)
[2016-09-14 07:22] LABS: MAGNESIUM 1.8 mg/dl (1.7-2.5); PHOSPHORUS 3.9 mg/dl (2.5-4.9)
[2016-09-14] MEDS: INSULIN ASPART [NOVOLOG] 3 ML PEN SC SCH ×4 (07:35→20:30)
[2016-09-14 07:47] VITALS: BP 114/59; RESP 18
[2016-09-14] MEDS: DORZOLAMIDE/TIMOLOL 10 ML OPH BOTH EYES SCH (08:14)
[2016-09-14] MEDS: FERROUS SULFATE (EC) 325 MG TAB PO SCH (08:18)
[2016-09-14] MEDS: AMIODARONE 200 MG TAB PO SCH (08:18)
[2016-09-14] MEDS: SODIUM CHLORIDE 1 GM TAB PO SCH ×3 (08:18→21:17)
[2016-09-14] MEDS: ASPIRIN (EC) 81 MG TAB PO SCH (08:18)
[2016-09-14] MEDS: metFORMIN 500 MG TAB PO SCH ×2 (08:19→17:36)
[2016-09-14] MEDS: RANOLAZINE (SR) 500 MG TAB PO SCH ×2 (08:19→21:17)
[2016-09-14] MEDS: ENALAPRIL 5 MG TAB PO SCH (08:20)
[2016-09-14] MEDS: CITALOPRAM 20 MG TAB PO SCH (08:20)
[2016-09-14] MEDS: DONEPEZIL 10 MG TAB PO SCH (08:20)
[2016-09-14] MEDS: MEMANTINE 10 MG TAB PO SCH (08:20)
[2016-09-14] MEDS: HEPARIN 5,000 UNIT/0.5 ML VIAL SC SCH ×2 (08:21→21:19)
--- NOTE | 2016-09-14 12:38 | CONS ---
Date/Time of Note Date/Time of Note DATE: 09/14/16 TIME: 12:37 Consult Date/Type/Reason Admit Date/Time August 30, 2016 at 19:25 Subjective Comfortable Objective pum-cta mod assist Vital Signs Date Time Temp Pulse Resp B/P Pulse Ox O2 Delivery O2 Flow Rate FiO2 09/14/16 07:47 98.3 72 18 114/59 95 09/13/16 07:37 Room Air Intake and Output 09/13/16 09/13/16 09/14/16 15:00 23:00 07:00 Intake Total 720 ml 360 ml 750 ml Balance 720 ml 360 ml 750 ml Results/Medications Result Diagram: 09/14/16 0605 09/14/16 0605 Results 24 hrs Laboratory Tests Test 09/13/16 17:25 09/13/16 20:44 09/14/16 06:05 09/14/16 07:53 Bedside Glucose 112 144 110 White Blood Count 7.6 Red Blood Count 3.28 L Hemoglobin 10.0 L Hematocrit 30.3 L Mean Corpuscular Volume 92.4 Mean Corpuscular Hemoglobin 30.5 Mean Corpuscular Hemoglobin Concent 33.0 Red Cell Distribution Width 17.6 H Platelet Count 286 Mean Platelet Volume 9.8 Neutrophils % 71.8 Lymphocytes % 14.8 L Monocytes % 7.9 Eosinophils % 4.1 Basophils % 0.4 Nucleated Red Blood Cells % 0.0 Neutrophils # 5.5 Lymphocytes # 1.1 Monocytes # 0.6 Eosinophils # 0.3 Basophils # 0.0 Nucleated Red Blood Cells # 0.0 Sodium Level 130 L Potassium Level 4.6 Chloride Level 97 Carbon Dioxide Level 29 Anion Gap 9 Blood Urea Nitrogen 19 Creatinine 1.02 Glucose Level 91 Calcium Level 8.2 L Phosphorus Level 3.9 Magnesium Level 1.8 Test 09/14/16 12:23 Bedside Glucose 121 Medications Current Medications Acetaminophen (Tylenol Tab) 650 mg Q6H PRN PO PAIN LEVEL 1-3 OR FEVER Last administered on 09/08/16 11:33; Admin Dose 650 MG; Start 08/30/16 at 21:00 Amiodarone HCl (Cordarone) 100 mg DAILY PO Last administered on 09/14/16 08:18 ; Admin Dose 100 MG; Start 08/31/16 at 09:00 Aspirin (Halfprin) 81 mg DAILY PO Last administered on 09/14/16 08:18; Admin Dose 81 MG; Start 08/31/16 at 09:00 Carvedilol (Coreg) 3.125 mg BID PO Last administered on 09/14/16 08:19; Admin Dose 3.125 MG; Start 08/30/16 at 21:00 Citalopram Hydrobromide (Celexa) 10 mg DAILY PO Last administered on 09/14/16 08:20; Admin Dose 10 MG; Start 08/31/16 at 09:00 Docusate Sodium (Colace) 100 mg Q12H PRN PO CONSTIPATION; Start 08/30/16 at 21: 00 Donepezil HCl (Aricept) 10 mg DAILY PO Last administered on 09/14/16 08:20; Admin Dose 10 MG; Start 08/31/16 at 09:00 Dorzolamide/ Timolol (Cosopt) 1 drop DAILY BOTH EYES Last administered on 08:14; Admin Dose 1 DROP; Start 08/31/16 at 09:00 Enalapril Maleate (Vasotec) 5 mg DAILY PO Last administered on 09/14/16 08:20 ; Admin Dose 5 MG; Start 08/31/16 at 09:00 Ferrous Sulfate (Ferrous Sulfate (Ec)) 325 mg DAILY PO Last administered on 08:18; Admin Dose 325 MG; Start 08/31/16 at 09:00 Gabapentin (Neurontin) 300 mg QHS PO Last administered on 09/13/16 21:02; Admin Dose 300 MG; Start 08/30/16 at 21:00 Heparin Sodium (Porcine) (Heparin (5000 Units/0.5 ml)) 5,000 unit Q12 SC Last administered on 09/14/16 08:21; Admin Dose 5,000 UNIT; Start 08/30/16 at 21:00 Latanoprost (Xalatan) 1 drop HS BOTH EYES Last administered on 09/13/16 21:37 ; Admin Dose 1 DROP; Start 08/30/16 at 21:30 Magnesium Hydroxide (Milk Of Mag) 30 ml DAILY PRN PO CONSTIPATION; Start at 21:00 Memantine (Namenda) 10 mg DAILY PO Last administered on 09/14/16 08:20; Admin Dose 10 MG; Start 08/31/16 at 09:00 Morphine Sulfate (morphine) 2 mg Q4H PRN IV SEVERE PAIN LEVEL 7-10; Start 08/30 at 21:00 Ondansetron HCl (Zofran Inj) 4 mg Q6H PRN IV NAUSEA AND/OR VOMITING; Start at 21:00 Pantoprazole (Protonix Tab) 40 mg DAILY@06 PO Last administered on 09/14/16 05 :45; Admin Dose 40 MG; Start 08/31/16 at 06:00 Ranolazine (Ranexa) 500 mg Q12 PO Last administered on 09/14/16 08:19; Admin Dose 500 MG; Start 08/30/16 at 21:30 Zolpidem Tartrate (Ambien) 5 mg QHS PRN PO SLEEP; Start 08/30/16 at 21:00 Miscellaneous Information 1 ea NOTE XX ; Start 08/30/16 at 21:00 Glucose (Glutose) 15 gm Q15M PRN PO DECREASED GLUCOSE; Start 08/30/16 at 21:00 Glucose (Glutose) 22.5 gm Q15M PRN PO DECREASED GLUCOSE; Start 08/30/16 at 21: 00 Dextrose (D50w Syringe) 25 ml Q15M PRN IV DECREASED GLUCOSE; Start 08/30/16 at 21:00 Dextrose (D50w Syringe) 50 ml Q15M PRN IV DECREASED GLUCOSE; Start 08/30/16 at 21:00 Glucagon (Glucagen) 1 mg Q15M PRN IM DECREASED GLUCOSE; Start 08/30/16 at 21:00 Glucose (Glutose) 15 gm Q15M PRN BUCCAL DECREASED GLUCOSE; Start 08/30/16 at 21 :00 Risperidone (Risperdal) 0.25 mg HS PO Last administered on 09/13/16 21:02; Admin Dose 0.25 MG; Start 08/30/16 at 21:30 Senna (Senokot) 1 tab HS PO Last administered on 09/13/16 21:02; Admin Dose 1 TAB; Start 08/31/16 at 21:00 Acetaminophen/ Hydrocodone Bitart ([place] (5/325)) 1 tab Q4H PRN PO MODERATE PAIN LEVEL 4-6 Last administered on 09/12/16 18:01; Admin Dose 1 TAB; Start 5/ 20/17 at 13:30 Ondansetron HCl (Zofran Tab) 4 mg Q6H PRN PO NAUSEA AND/OR VOMITING Last administered on 09/13/16 13:15; Admin Dose 4 MG; Start 09/10/16 at 12:30 Sodium Chloride (Nacl) 1 gm TID PO Last administered on 09/14/16 08:18; Admin Dose 1 GM; Start 09/11/16 at 13:00 Assessment/Plan Additional Assessment/Plan Rehab- Left comminuted intratrochanteric hip fracture status post ORIF. Continue rehab program Dysphagia-speech Congestive heart failure. Diabetes mellitus type 2. Coronary artery disease. Hypertension. Gastroesophageal reflux disease. Anemia. Urinary tract infection. SHERON ABREU MD September 14, 2016 12:38
[2016-09-14] MEDS: ACETAMINOPHEN 325 MG TAB PO PRN (13:28)
--- NOTE | 2016-09-14 14:40 | PN ---
DATE: 09/14/2016 SUBJECTIVE: Patient seen. Family is at bedside and they stated that the patient has slightly runny nose; otherwise the patient with no acute complaints. PHYSICAL EXAMINATION: VITAL SIGNS: Temperature 98.3, pulse 72, respirations 18, blood pressure 114/59, saturation 95% on room air. GENERAL: No acute distress, frail, pale. CARDIOVASCULAR: S1, S2, regular rate. LUNGS: Clear. ABDOMEN: Soft, nontender. EXTREMITIES: No clubbing, cyanosis, or edema. Upon flexion of the left knee, there is slight pain in the hip. LABORATORY DATA: White count is normal at 7.6, hemoglobin 10, hematocrit 30, platelet count 286, ne utrophils 72%, lymphocytes 15%. Chemistry: Sodium improved to 130, potassium 4.6, chloride 97, bic arbonate 29, BUN is 19, creatinine 1.02, glucose of 91. Last glucose levels 121 and 110. MEDICATIONS: 1. Sodium chloride 1 tab t.i.d. 2. Zofran p.r.n. 3. Metformin 500 b.i.d. 4. [place] p.r.n. 5. Senna 1 tab at bedtime. 6. Amiodarone 100 mg daily. 7. Aspirin 81 mg daily. 8. Celexa 10 mg daily. 9. Aricept 10 mg daily. 10. Cosopt eyedrops daily. 11. Vasotec 5 mg daily. 12. Ferrous sulfate 325 daily. 13. Namenda 10 mg daily. 14. Protonix 40 mg daily. 15. Insulin aspart per sliding scale. 16. Xalatan eyedrops at bedtime. 17. Ranexa 500 q.12h. 18. Risperdal 0.25 at bedtime. 19. Tylenol p.r.n. 18. Coreg 3.125 b.i.d. 19. Neurontin 300 at bedtime. 20. Heparin 5000 units subq. 21. Milk of magnesia p.r.n. 22. Morphine p.r.n. 23. Zofran p.r.n. 24. Hypoglycemia protocol as directed. ASSESSMENT AND PLAN: 1. This is an 89-year-old male with history of coronary artery disease, diabetes mellitus, hypertension, dementia who presented with left hip fracture status post open reduction internal fix ation. 2. Status post left hip open reduction internal fixation. Continue physical therapy, pain control. Help with activities of daily living. 3. Hyponatremia. Continue sodium tablets, sodium improved. 4. Diabetes mellitus, on metformin, glucose levels are well controlled. 5. Cardiovascular. Patient with coronary artery disease, arrhythmia, on amiodarone, Coreg, Vasotec and Ranexa. 6. Anemia. Hemoglobin and hematocrit stable. Continue ferrous sulfate 325 daily. 7. Dementia. Continue Aricept and Namenda. 8. Depression, on Celexa. 9. Allergic rhinitis. We will start the patient on Flonase. 10. Glaucoma. Continue all eyedrops. 11. Continue stool softeners. 12. Case discussed with family regarding discharge planning and home health followup. Continues to improve. We will follow. Dictated By: JENNI RAY/XIN Conf#: [id number] DID#: [id number]
[2016-09-14] MEDS: FLUTICASONE 0.05% 16 GM NAS SPRAY NASAL SCH (17:36)
--- NOTE | 2016-09-14 17:41 | CONS ---
DATE OF ADMISSION: 08/30/2016 DATE OF CONSULTATION: 09/14/2016 TYPE OF CONSULTATION: Psychological. REFERRING PHYSICIAN: SHERON NERI MD. CONSULTING PSYCHOLOGIST: Valeria Evans, PhD. REASON FOR CONSULTATION: This consultation was requested by Dr. Nena Neri in order to evaluate the cognitive and emotional functioning of this patient related to his present medical condition. HISTORY OF PRESENT ILLNESS: The patient is an 89-year-old male. The patient has multiple medical p roblems. The patient states that he is very frustrated about being in the hospital and that he is i n the hospital all the time because of his medical problems. The patient did have a fall with a con tusion. The patient was transferred to [facility] facility and then had another fall and did u ndergo an ORIF of the left hip. The patient was cleared medically and then transferred to the acute rehabilitation unit for acute multidisciplinary rehabilitation. The patient is basically Gu[place]ian s peaking and although the interview can do some Guamanian, he was assisted by Faith Ruiz as interpret er. The patient does have a history of dementia and also history of depression and being on medicat ions for both of these disorders. The patient is motivated to get better. The patient does want to return to his previous level of functioning and go home. FAMILY AND SOCIAL HISTORY: The patient lives with his daughter and her in an apartment. Th e patient does want to return there after discharge. MEDICATIONS: The patient is currently on: 1. Celexa 10 mg daily. 2. Aricept 10 mg daily. 3. Namenda 10 mg daily. 4. Risperdal 0.25 mg at bedtime. 5. Neurontin 300 mg at bedtime. 6. Ambien 5 mg at bedtime p.r.n. SUBSTANCE USE: The patient reports that he does not use alcohol or other drugs. The patient report s that he does not smoke. MENTAL STATUS EXAMINATION: APPEARANCE: The patient was seen in bed. He is of average height and weight. He wears glasses and was wearing a knit hat. The patient is right-handed. BEHAVIOR: The patient was cooperative during the consultation. The patient did attempt to answer a ll questions presented to him by the interviewer through the turbine attendant. MOOD AND AFFECT: The patient's mood appears to be frustrated and depressed. Affect does appear to be slightly anxious. PERCEPTION: The patient reports no hallucinations or delusions. The patient was alert to person bu t not exactly to place, situation and time. MEMORY AND COGNITION: The patient's memory and cognition appear to be impaired. He had difficulty recalling recent and remote events. The patient was unable to name the hospital. The patient was u nable to say what month it is. The patient was able to say that the year was 17. The patient could not say who the milk condenser is, who the governor of the state is, or with the ma yor of the city is. He could not do any serial 7 subtractions from 100. Overall, the patient does clearly indicate that he is having a form of dementia, likely. INTELLIGENCE: Intelligence appears to fall in the average range when he was functioning adequately. INSIGHT: Fair. JUDGMENT: Fair. THOUGHT CONTENT: The patient is concerned about his present medical condition. The patient does wa nt to return home and to his previous level of functioning. The patient is frustrated about all his medical problems and does want finally get better and get out of the hospital. DISCUSSION: The patient may possibly be able to benefit from some cognitive/behavioral psychotherap y while he is on the unit. Psychotherapy would focus on his underlying level of frustration about a ll his medical problems and try to help with his cognitive difficulties. DIAGNOSTIC IMPRESSION: 1. F33.1, major depressive disorder, recurrent, moderate. 2. F03.90, unspecified dementia without behavioral disturbance. Thank you very much, Dr. Nena Neri, for referring this individual. Please do not hesitate to ca ll if you have any additional questions. Dictated By: VALERIA EVANS PHD JYOTHI/XIN Conf#: [id number] DID#: [id number]
[2016-09-14 20:00] VITALS: BP 133/63; RESP 20
[2016-09-14] MEDS: SENNA TAB PO SCH (21:00)
[2016-09-14] MEDS: LATANOPROST 0.005% 2.5 ML OPH BOTH EYES SCH (21:16)
[2016-09-14] MEDS: RISPERIDONE 0.25 MG TAB PO SCH (21:17)
[2016-09-14] MEDS: GABAPENTIN 300 MG CAP PO SCH (21:17)
[2016-09-15] MEDS: PANTOPRAZOLE (EC) 40 MG TAB PO SCH (06:20)
[2016-09-15 07:30] VITALS: BP 107/62; RESP 18
[2016-09-15] MEDS: INSULIN ASPART [NOVOLOG] 3 ML PEN SC SCH ×4 (07:35→21:00)
[2016-09-15 09:00] VITALS: BP 107/62; PULSE 88; RESP 18
[2016-09-15] MEDS: metFORMIN 500 MG TAB PO SCH ×2 (09:08→17:31)
[2016-09-15] MEDS: DORZOLAMIDE/TIMOLOL 10 ML OPH BOTH EYES SCH (09:08)
[2016-09-15] MEDS: FLUTICASONE 0.05% 16 GM NAS SPRAY NASAL SCH (09:09)
[2016-09-15] MEDS: FERROUS SULFATE (EC) 325 MG TAB PO SCH (09:14)
[2016-09-15] MEDS: RANOLAZINE (SR) 500 MG TAB PO SCH ×2 (09:15→20:59)
[2016-09-15] MEDS: CITALOPRAM 20 MG TAB PO SCH (09:15)
[2016-09-15] MEDS: ASPIRIN (EC) 81 MG TAB PO SCH (09:15)
[2016-09-15] MEDS: DONEPEZIL 10 MG TAB PO SCH (09:15)
[2016-09-15] MEDS: SODIUM CHLORIDE 1 GM TAB PO SCH ×3 (09:15→20:59)
[2016-09-15] MEDS: MEMANTINE 10 MG TAB PO SCH (09:15)
[2016-09-15] MEDS: HEPARIN 5,000 UNIT/0.5 ML VIAL SC SCH ×2 (09:16→21:08)
--- NOTE | 2016-09-15 11:41 | CONS ---
Date/Time of Note Date/Time of Note DATE: 09/15/16 TIME: 11:41 Consult Date/Type/Reason Admit Date/Time August 30, 2016 at 19:25 Objective Vital Signs Date Time Temp Pulse Resp B/P Pulse Ox O2 Delivery O2 Flow Rate FiO2 09/15/16 09:00 97.3 88 18 107/62 96 Room Air Intake and Output 09/14/16 09/14/16 09/15/16 14:59 22:59 06:59 Intake Total 720 ml 840 ml 120 ml Balance 720 ml 840 ml 120 ml Results/Medications Result Diagram: 09/14/1660409/14/16604 Results 24 hrs Laboratory Tests Test 09/14/16 12:23 09/14/16 17:25 09/14/16 20:14 09/15/16 08:13 Bedside Glucose 121 107 108 115 Medications Current Medications Acetaminophen (Tylenol Tab) 650 mg Q6H PRN PO PAIN LEVEL 1-3 OR FEVER Last administered on 09/14/16 13:28; Admin Dose 650 MG; Start 08/30/16 at 21:00 Amiodarone HCl (Cordarone) 100 mg DAILY PO Last administered on 09/14/16 08:18 ; Admin Dose 100 MG; Start 08/31/16 at 09:00 Aspirin (Halfprin) 81 mg DAILY PO Last administered on 09/15/16 09:15; Admin Dose 81 MG; Start 08/31/16 at 09:00 Carvedilol (Coreg) 3.125 mg BID PO Last administered on 09/14/16 21:17; Admin Dose 3.125 MG; Start 08/30/16 at 21:00 Citalopram Hydrobromide (Celexa) 10 mg DAILY PO Last administered on 09/15/16 09:15; Admin Dose 10 MG; Start 08/31/16 at 09:00 Docusate Sodium (Colace) 100 mg Q12H PRN PO CONSTIPATION; Start 08/30/16 at 21: 00 Donepezil HCl (Aricept) 10 mg DAILY PO Last administered on 09/15/16 09:15; Admin Dose 10 MG; Start 08/31/16 at 09:00 Dorzolamide/ Timolol (Cosopt) 1 drop DAILY BOTH EYES Last administered on 09:08; Admin Dose 1 DROP; Start 08/31/16 at 09:00 Enalapril Maleate (Vasotec) 5 mg DAILY PO Last administered on 09/14/16 08:20 ; Admin Dose 5 MG; Start 08/31/16 at 09:00 Ferrous Sulfate (Ferrous Sulfate (Ec)) 325 mg DAILY PO Last administered on 09/15 09:14; Admin Dose 325 MG; Start 08/31/16 at 09:00 Gabapentin (Neurontin) 300 mg QHS PO Last administered on 09/14/16 21:17; Admin Dose 300 MG; Start 08/30/16 at 21:00 Heparin Sodium (Porcine) (Heparin (5000 Units/0.5 ml)) 5,000 unit Q12 SC Last administered on 09/15/16 09:16; Admin Dose 5,000 UNIT; Start 08/30/16 at 21:00 Latanoprost (Xalatan) 1 drop HS BOTH EYES Last administered on 09/14/16 21:16 ; Admin Dose 1 DROP; Start 08/30/16 at 21:30 Magnesium Hydroxide (Milk Of Mag) 30 ml DAILY PRN PO CONSTIPATION; Start at 21:00 Memantine (Namenda) 10 mg DAILY PO Last administered on 09/15/16 09:15; Admin Dose 10 MG; Start 08/31/16 at 09:00 Morphine Sulfate (morphine) 2 mg Q4H PRN IV SEVERE PAIN LEVEL 7-10; Start 08/30 at 21:00 Ondansetron HCl (Zofran Inj) 4 mg Q6H PRN IV NAUSEA AND/OR VOMITING; Start at 21:00 Pantoprazole (Protonix Tab) 40 mg DAILY@06 PO Last administered on 09/15/16 06: 20; Admin Dose 40 MG; Start 08/31/16 at 06:00 Ranolazine (Ranexa) 500 mg Q12 PO Last administered on 09/15/16 09:15; Admin Dose 500 MG; Start 08/30/16 at 21:30 Zolpidem Tartrate (Ambien) 5 mg QHS PRN PO SLEEP; Start 08/30/16 at 21:00 Miscellaneous Information 1 ea NOTE XX ; Start 08/30/16 at 21:00 Glucose (Glutose) 15 gm Q15M PRN PO DECREASED GLUCOSE; Start 08/30/16 at 21:00 Glucose (Glutose) 22.5 gm Q15M PRN PO DECREASED GLUCOSE; Start 08/30/16 at 21: 00 Dextrose (D50w Syringe) 25 ml Q15M PRN IV DECREASED GLUCOSE; Start 08/30/16 at 21:00 Dextrose (D50w Syringe) 50 ml Q15M PRN IV DECREASED GLUCOSE; Start 08/30/16 at 21:00 Glucagon (Glucagen) 1 mg Q15M PRN IM DECREASED GLUCOSE; Start 08/30/16 at 21:00 Glucose (Glutose) 15 gm Q15M PRN BUCCAL DECREASED GLUCOSE; Start 08/30/16 at 21 :00 Risperidone (Risperdal) 0.25 mg HS PO Last administered on 09/14/16 21:17; Admin Dose 0.25 MG; Start 08/30/16 at 21:30 Senna (Senokot) 1 tab HS PO Last administered on 09/13/16 21:02; Admin Dose 1 TAB; Start 08/31/16 at 21:00 Acetaminophen/ Hydrocodone Bitart ([place] (5/325)) 1 tab Q4H PRN PO MODERATE PAIN LEVEL 4-6 Last administered on 09/12/16 18:01; Admin Dose 1 TAB; Start at 13:30 Ondansetron HCl (Zofran Tab) 4 mg Q6H PRN PO NAUSEA AND/OR VOMITING Last administered on 09/13/16 13:15; Admin Dose 4 MG; Start 09/10/16 at 12:30 Sodium Chloride (Nacl) 1 gm TID PO Last administered on 09/15/16 09:15; Admin Dose 1 GM; Start 09/11/16 at 13:00 Fluticasone Propionate (Flonase 0.05% Nasal) 1 spray DAILY NASAL Last administered on 09/15/16 09:09; Admin Dose 1 SPRAY; Start 09/14/16 at 16:00 SHERON ABREU MD Sep 15, 2016 11:41
[2016-09-15 13:00] VITALS: BP 145/78; PULSE 80; RESP 18
[2016-09-15] MEDS: ENALAPRIL 5 MG TAB PO SCH (13:56)
[2016-09-15] MEDS: AMIODARONE 200 MG TAB PO SCH (13:57)
--- NOTE | 2016-09-15 15:03 | PN ---
DATE: 09/15/2016 SUBJECTIVE: The patient seen and family is at bedside. Case discussed with nursing staff. Patient is to undergo a video swallow, as there was a concern with him, as he has been coughing with liquid s. The patient to have the test today. PHYSICAL EXAMINATION: VITAL SIGNS: Afebrile. Temperature 97.3, pulse 88, respirations 18, blood pressure 107/60, saturati on 96% on room air. GENERAL: The patient is in no acute distress. The patient is frail, pale. CARDIOVASCULAR: S1, S2, regular rate. LUNGS: Clear. ABDOMEN: Soft, nontender. EXTREMITIES: Slight pain in the left hip upon flexion of the lower extremities. LABORATORY DATA: No new labs today, yesterday, white count was 7.6 with hemoglobin of 10. Glucose l evels are good, 134, 115 and 108. MEDICATIONS: The patient's medications were all reviewed, include: 1. Fluticasone nasal spray daily. 2. Sodium chloride 1 gram t.i.d. 3. Zofran p.r.n. 4. Glucophage 500 b.i.d. 5. [place] p.r.n. 6. Senna 1 tab at bedtime. 7. Amiodarone 100 mg daily. 8. Aspirin 81 daily. 9. Celexa 10 mg daily. 10. Aricept 10 mg daily. 11. Cosopt eyedrops daily. 12. Vasotec 5 mg daily. 13. ____ daily. 14. Namenda 10 mg daily. 15. Protonix 40 mg daily. 16. Insulin aspart per sliding scale. 17. Xalatan eyedrops at bedtime. 18. Ranexa 500 q.12h. 19. Risperdal 0.25 at bedtime. 20. Tylenol p.r.n. 21. Coreg 3.125 b.i.d. 22. Colace 100 p.r.n. 23. Neurontin 300 at bedtime. 24. Heparin 5000 units subq q.12h. 25. Milk of magnesia p.r.n. 26. Morphine p.r.n. 27. Zofran p.r.n. 28. Ambien p.r.n. 29. Hypoglycemia protocol as directed. ASSESSMENT AND PLAN: This is an 89-year-old male with history of coronary artery disease, d iabetes mellitus, hypertension, dementia, who presented with left hip fracture status post open redu ction internal fixation. 1. Status post left hip open reduction internal fixation. Continue physical therapy, occupational therapy, pain control and help with activities of daily living. Plan for discharge possibly tomorro w with home health. 2. Hyponatremia. Remains on sodium tablets. 3. Diabetes mellitus on metformin. Diabetes is well controlled. 4. Cardiovascular. Continue amiodarone, Coreg, Vasotec and Ranexa. Vitals are stable. 5. Anemia. Continue iron supplements. 6. Dementia. Continue Aricept. 7. Namenda. Increased Namenda dose to b.i.d. dosing. 8. Depression, on Celexa. 9. Allergic rhinitis. Continue Flonase. 10. Glaucoma. Continue all eyedrops. 11. Dysphagia. Video swallow to be done today. Further diet recommendations per speech therapist. 12. Discharge planning, hopefully for a tumor as discussed. Family is at bedside. They are aware of plan of care. 13. I appreciate Dr. Evans's psychological evaluation. His impression is major depression disorder , recurrent, moderate. Nonspecific dementia without behavioral disturbances. The patient's mood juan ears to be stable. We will follow. Dictated By: JENNI RAY/XIN Conf#: [id number] DID#: [id number]
[2016-09-15 20:00] VITALS: BP 117/64; RESP 16
[2016-09-15] MEDS: GABAPENTIN 300 MG CAP PO SCH (20:59)
[2016-09-15] MEDS: LATANOPROST 0.005% 2.5 ML OPH BOTH EYES SCH (20:59)
[2016-09-15] MEDS: RISPERIDONE 0.25 MG TAB PO SCH (21:00)
[2016-09-15] MEDS: SENNA TAB PO SCH (21:00)
[2016-09-16] MEDS: PANTOPRAZOLE (EC) 40 MG TAB PO SCH (06:23)
[2016-09-16] MEDS: INSULIN ASPART [NOVOLOG] 3 ML PEN SC SCH ×2 (07:35→12:33)
[2016-09-16 07:51] VITALS: BP 117/59; RESP 18
[2016-09-16] MEDS: HEPARIN 5,000 UNIT/0.5 ML VIAL SC SCH (08:34)
[2016-09-16] MEDS: DORZOLAMIDE/TIMOLOL 10 ML OPH BOTH EYES SCH (08:35)
[2016-09-16] MEDS: FLUTICASONE 0.05% 16 GM NAS SPRAY NASAL SCH (08:35)
[2016-09-16] MEDS: AMIODARONE 200 MG TAB PO SCH (08:36)
[2016-09-16] MEDS: FERROUS SULFATE (EC) 325 MG TAB PO SCH (08:36)
[2016-09-16] MEDS: DONEPEZIL 10 MG TAB PO SCH (08:36)
[2016-09-16] MEDS: CITALOPRAM 20 MG TAB PO SCH (08:36)
[2016-09-16] MEDS: RANOLAZINE (SR) 500 MG TAB PO SCH (08:36)
[2016-09-16] MEDS: ENALAPRIL 5 MG TAB PO SCH (08:37)
[2016-09-16] MEDS: SODIUM CHLORIDE 1 GM TAB PO SCH ×2 (08:37→12:33)
[2016-09-16] MEDS: metFORMIN 500 MG TAB PO SCH (08:37)
[2016-09-16] MEDS: ASPIRIN (EC) 81 MG TAB PO SCH (08:37)
[2016-09-16] MEDS: MEMANTINE 10 MG TAB PO SCH (08:48)
--- NOTE | 2016-09-16 11:26 | RADRPT ---
PROCEDURE: Video swallow examination of the esophagus CLINICAL INDICATION: aspiration TECHNIQUE: Real time video fluoroscopy of the lateral neck was performed. The patient was given b arium in multiple different consistencies by the speech pathologist. Fluoroscopy time: 2.3 minutes COMPARISON: None. FINDINGS: Deep penetration is noted with nectar is administered via a straw. IMPRESSION: Deep penetration with nectar via a straw. Please refer to the speech pathology notes for more information and recommendations. RPTAT: KK Physician Esteban Date Time Electronically viewed and signed by Physician Esteban on 09/16/2016 11:25 RA/
== END 2016-09-16 13:00 | disposition home health service (06) | DRG 560 ==
LOC: VRC 19:25
PROVIDERS: ADMIT Physical Medicine & Rehabilitation; ATTEND Internal Medicine
DX: S72.142D Displaced intertrochanteric fracture of left femur, subsequent encounter for closed fracture with routine healing (principal); I50.32 Chronic diastolic (congestive) heart failure; E46 Unspecified protein-calorie malnutrition; E87.1 Hypo-osmolality and hyponatremia; R13.10 Dysphagia, unspecified; F33.1 Major depressive disorder, recurrent, moderate; J44.9 Chronic obstructive pulmonary disease, unspecified; G30.9 Alzheimer's disease, unspecified; F02.80 Dementia in other diseases classified elsewhere, unspecified severity, without behavioral disturbance, psychotic disturbance, mood disturbance, and anxiety; W19.XXXD Unspecified fall, subsequent encounter; I25.10 Atherosclerotic heart disease of native coronary artery without angina pectoris; K21.9 Gastro-esophageal reflux disease without esophagitis; I10 Essential (primary) hypertension; E11.9 Type 2 diabetes mellitus without complications; H40.9 Unspecified glaucoma; E78.5 Hyperlipidemia, unspecified; D64.9 Anemia, unspecified; G89.18 Other acute postprocedural pain; R11.2 Nausea with vomiting, unspecified; J30.9 Allergic rhinitis, unspecified; Z79.4 Long term (current) use of insulin
CPT/HCPCS: 73510; 73700; 74230; 80048; 80053; 81001; 81003; 82962; 83735; 84100; 85025; 87081; 87086; 92526; 92610; 92611; 97110; 97112; 97116; 97150; 97163; 97167; 97530; 97535; 97542; J1644; J1815; J2405; L1820

== ENCOUNTER 2016-10-04 16:58 | Emergency (ER) | payer MEDICARE, OTHER ==
[~2016-10-04] VITALS: Ht 154.9 cm; Wt 18.2 kg
[2016-10-04] MEDS ORDERED: SOD CHLORIDE 0.9% 1,000 ML IV STA ×2 (17:12)
[2016-10-04] MEDS ORDERED: ONDANSETRON 4 MG INJ IV STA (17:12)
[2016-10-04 17:17] VITALS: Ht 154.9 cm; Wt 18.2 kg
[2016-10-04 17:54] LABS: ADD SCAN DIFF NO
[2016-10-04 17:55] LABS: BASOPHIL # 0.1 10^3/ul (0.0-0.1); BASOPHILS % 0.6 % (0.0-2.0); EOSINOPHILS # 0.4 10^3/ul (0.0-0.5); EOSINOPHILS % 4.4 % (0.0-7.0); HEMATOCRIT 35.7 % (42.0-52.0); LYMPHOCYTES # 1.5 10^3/ul (0.8-2.9); LYMPHOCYTES % 14.8 % (15.0-51.0); MEAN CORPUSCULAR HEMOGLOBIN 31.9 pg (29.0-33.0); MEAN CORPUSCULAR HGB CONC 33.6 g/dl (32.0-37.0); MEAN CORPUSCULAR VOLUME 94.9 fl (82.0-101.0); MEAN PLATELET VOLUME 9.5 fl (7.4-10.4); MONOCYTE # 0.7 10^3/ul (0.3-0.9); MONOCYTES % 6.8 % (0.0-11.0); NEUTROPHIL # 7.2 10^3/ul (1.6-7.5); NEUTROPHILS % 72.4 % (39.0-77.0); PLATELET COUNT 300 10^3/UL (140-415); RED BLOOD COUNT 3.76 10^6/ul (4.70-6.10); RED CELL DISTRIBUTION WIDTH 16.4 % (11.5-14.5); WHITE BLOOD COUNT 9.9 10^3/ul (4.8-10.8)
[2016-10-04 18:10] LABS: INR 0.97; PARTIAL THROMBOPLASTIN TIME 29.2 Sec (25.0-35.0); PROTIME 12.9 Sec (12.2-14.2)
--- NOTE | 2016-10-04 18:36 | RADRPT ---
PROCEDURE: XR Chest. CLINICAL INDICATION: Shortness of breath. TECHNIQUE: Single frontal view. COMPARISON: 08/26/2016. FINDINGS: There is bilateral interstitial pulmonary edema and volume loss, similar to the prior study. The nellie ngs are otherwise clear. The heart size is normal. There is calcification in the aorta consistent with atherosclerosis. There is no pleural effusion. There is no pneumothorax. IMPRESSION: 1. No change from 08/26/2016. RPTAT: QQ .Enmanuel Vaca MD, MD Date Time Electronically viewed and signed by .Enmanuel Vaca MD, MD on 10/04/2016 18:35 .R/
[2016-10-04 18:39] LABS: ALANINE AMINOTRANSFERASE 22 IU/L (13-69); ALBUMIN 4.3 g/dl (3.3-4.9); ALKALINE PHOSPHATASE 97 IU/L (42-121); ANION GAP 13 (8-16); ASPARTATE AMINO TRANSFERASE 23 IU/L (15-46); BILIRUBIN,INDIRECT 0.1 mg/dl (0-1.1); BILIRUBIN,TOTAL 0.1 mg/dl (0.2-1.3); BLOOD UREA NITROGEN 13 mg/dl (7-20); CALCIUM 8.8 mg/dl (8.4-10.2); CARBON DIOXIDE 28 mmol/L (21-31); CHLORIDE 97 mmol/L (97-110); CREATININE 0.85 mg/dl (0.61-1.24); GLUCOSE 93 mg/dl (70-220); POTASSIUM 4.5 mmol/L (3.5-5.1); SODIUM 133 mmol/L (135-144); TOTAL PROTEIN 7.6 g/dl (6.1-8.1)
[2016-10-04 18:49] VITALS: TEMP 97.7
[2016-10-04 19:03] LABS: TROPONIN-I < 0.012 ng/ml (0.00-0.12)
[2016-10-04] MEDS ORDERED: METF500T4 PO (19:06)
[2016-10-04] MEDS ORDERED: HYDR-906 PO (19:07)
[2016-10-04] MEDS ORDERED: DOCU-159 PO (19:10)
[2016-10-04] MEDS ORDERED: FER325 PO (19:10)
--- NOTE | 2016-10-04 19:22 | RADRPT ---
PROCEDURE: CT brain without contrast CLINICAL INDICATION: Weakness. TECHNIQUE: A CT of the brain was performed utilizing axial sections from the skull base through th e vertex without contrast. Sagittal and coronal images were also reformatted. The exam CTDIvol = 42. 30 mGy and DLP = 630.20 mGy-cm. COMPARISON: CT 08/24/2016 FINDINGS: No acute intracranial hemorrhage is identified. There is no mass effect or midline shift. Previous ly identified subdural hygromas adjacent to the frontal lobes bilaterally have decreased compared to the previous examination H now measuring approximately 5-6 mm in greatest dimension and located jennie r the inferior aspect of the frontal lobes, resolved at the convexity. The ventricles and sulci are normal in size and configuration for the patient's provided age of 89 years consistent with advance d generalized atrophy. Diffuse low attenuation of the subcortical and periventricular white matter is again noted, nonspecific but likely related to chronic small vessel ischemic disease. Millan-white differentiation is preserved with no findings to suggest an acute ischemic infarct. Small chronic lacunar infarct in the superior left cerebral hemispheres again noted with no acute po sterior fossa abnormality or mass effect, the fourth ventricle remains midline. The osseous structures are diffusely demineralized but otherwise unremarkable. Mild chronic left max illary sinus disease is noted The mastoid air cells and remaining visualized paranasal sinuses are clear. RPTAT:HJJR IMPRESSION: 1. Interval decrease and almost total resolution of the previously identified bilateral frontal subd ural hygromas compared to the study of 08/24/2016. 2. Generalized severe age-appropriate atrophy and chronic small vessel ischemic white matter diseas e stable compared to the prior exam. 3. Incidental small chronic lacunar infarct of the left cerebral hemisphere. 4. Left maxillary sinus disease. Physician Ziyad Date Time Electronically viewed and signed by Physician Ziyad on 10/04/2016 19:22 JR/
[2016-10-04 20:04] LABS: URINE BLOOD (Dip) POC Negative (NEGATIVE)
[2016-10-04 20:16] VITALS: BP 149/83; PULSE 83; RESP 28
--- NOTE | 2016-10-04 20:16 | ERD ---
ER Documentation Chief Complaint Date/Time DATE: 10/04/16 TIME: 20:15 Chief Complaint daughter called because pt is weaker less talkative than normally HPI Patient is a 89-year-old male with dementia, diabetes, hypertension, and low blood pressure who presents with weakness. Please note the history and physical exam is limited secondary to the patient's dementia. The patient came from home. The patient was brought in by ambulance. He denies pain and denies fevers. He had some vomiting. He had low blood pressure. There is no family here with him at this time. ROS All systems reviewed and are negative except as per history of present illness. Medications Home Meds Reported Medications Ferrous Sulfate* (Ferrous Sulfate*) 325 Mg Tabec, 325 MG PO DAILY, TAB 10/04/16 Docusate Sodium* (Docusate Sodium*) 100 Mg Capsule, 100 MG PO BID, #60 CAP 10/04/16 Hydrocodone/Acetaminophen (Brewer 5-325 Tablet) 1 Each Tablet, 1 EACH PO Q6H Y for PRN, TAB 10/04/16 Metformin Hcl* (Metformin Hcl*) 500 Mg Tablet, 500 MG PO WITH BREAKFAST DINNE, # 60 TAB 10/04/16 Dorzolamide/Timolol* (Dorzolamide/Timolol*) 10 Ml Drops, 1 DROP BOTH EYES DAILY , #1 EA 08/24/16 Bimatoprost* (Lumigan*) 0.01%-2.5 Ml Opht Drops, 1 DROP BOTH EYES HS, EA 08/24/16 Ranolazine* (Ranexa*) 500 Mg Tab.sr.12h, 500 MG PO Q12, TAB 08/24/16 Risperidone* (Risperidone*) 0.25 Mg Tablet, 0.25 MG PO QHS, TAB 08/24/16 Memantine* (Namenda*) 10 Mg Tablet, 10 MG PO DAILY, #30 TAB 08/24/16 Amiodarone Hcl* (Amiodarone Hcl*) 100 Mg Tablet, 100 MG PO DAILY, #30 TAB 08/24/16 Gabapentin* (Gabapentin*) 300 Mg Capsule, 300 MG PO QHS, CAP 02/13/15 Aspirin (Low Dose Aspirin) 81 Mg Tablet.dr, 81 MG PO DAILY 02/13/15 Enalapril Maleate* (Enalapril Maleate*) 5 Mg Tablet, 5 MG PO DAILY, TAB 10/13/14 Discontinued Reported Medications Carvedilol* (Carvedilol*) 3.125 Mg Tablet, 3.125 MG PO DAILY, TAB 02/13/15 Isosorbide Mononitrate* (Isosorbide Mononitrate*) 60 Mg Tab.er.24h, 60 MG PO DAILY, TAB 02/13/15 Dexlansoprazole (Dexilant) 30 Mg Jimmy.mp, 30 MG PO DAILY, CAP 02/13/15 Spironolactone* (Aldactone*) 25 Mg Tablet, 25 MG PO DAILY, TAB 02/13/15 Simvastatin (Simvastatin) 20 Mg Tablet, 20 MG PO HS, TAB 02/13/15 Donepezil* (Donepezil*) 10 Mg Tablet, 10 MG PO DAILY, TAB 02/13/15 Metformin Hcl* (Metformin Hcl*) 500 Mg Tablet, 500 MG PO WITH BREAKFAST, TAB 02/13/15 Allergies Allergies: Coded Allergies: No Known Allergy (Unverified , 10/04/16) PMhx/Soc History of Surgery: Yes (Prostate sx per dtr) Anesthesia Reaction: No Hx Neurological Disorder: Yes (ALZHEIMER DEMENTIA. ) Hx Respiratory Disorders: Yes (COPD. ) Hx Cardiac Disorders: Yes (CAD. DIASTOLIC DYSFUNCTION HEART FAILURE. HTN. DYSLIPIDEMIA) Hx Psychiatric Problems: No Hx Miscellaneous Medical Probl: Yes (dysphagia, L 7th rib fx, DM, HTN, dyslipidemia, GERD, alzheimer's dementia) Hx Alcohol Use: No Hx Substance Use: No Hx Tobacco Use: No Smoking Status: Never smoker FmHx Family History: No diabetes Physical Exam Vitals Vital Signs Date Time Temp Pulse Resp B/P Pulse Ox O2 Delivery O2 Flow Rate FiO2 10/04/16 20:16 83 28 149/83 98 Room Air 10/04/16 18:49 97.7 10/04/16 17:41 79 27 153/79 Room Air 10/04/16 17:17 81 26 131/83 98 Physical Exam Const: No acute distress Head: Atraumatic Eyes: Normal Conjunctiva ENT: Normal External Ears, Nose and Mouth. Neck: Full range of motion..~ No meningismus. Resp: Clear to auscultation bilaterally Cardio: Regular rate and rhythm, no murmurs Abd: Soft, non tender, non distended. Normal bowel sounds Skin: No petechiae or rashes Back: No midline or flank tenderness Ext: No cyanosis, or edema Neur: Awake, moves all 4 extremities, dementia baseline Result Diagram: 10/04/16172910/04/161729 Results 24 hrs Laboratory Tests Test 10/04/16 17:30 10/04/16 20:06 White Blood Count 9.910^3/ul Red Blood Count 3.7610^6/ul Hemoglobin 12.0g/dl Hematocrit 35.7% Mean Corpuscular Volume 94.9fl Mean Corpuscular Hemoglobin 31.9pg Mean Corpuscular Hemoglobin Concent 33.6g/dl Red Cell Distribution Width 16.4% Platelet Count 01149^3/UL Mean Platelet Volume 9.5fl Neutrophils % 72.4% Lymphocytes % 14.8% Monocytes % 6.8% Eosinophils % 4.4% Basophils % 0.6% Nucleated Red Blood Cells % 0.0/100WBC Neutrophils # 7.210^3/ul Lymphocytes # 1.510^3/ul Monocytes # 0.710^3/ul Eosinophils # 0.410^3/ul Basophils # 0.110^3/ul Nucleated Red Blood Cells # 0.010^3/ul Prothrombin Time 12.9Sec Prothrombin Time Ratio 1.0 INR International Normalized Ratio 0.97 Activated Partial Thromboplast Time 29.2Sec Sodium Level 133mmol/L Potassium Level 4.5mmol/L Chloride Level 97mmol/L Carbon Dioxide Level 28mmol/L Anion Gap 13 Blood Urea Nitrogen 13mg/dl Creatinine 0.85mg/dl Glucose Level 93mg/dl Lactic Acid Level 1.7mmol/L Calcium Level 8.8mg/dl Total Bilirubin 0.1mg/dl Direct Bilirubin 0.00mg/dl Indirect Bilirubin 0.1mg/dl Aspartate Amino Transf (AST/SGOT) 23IU/L Alanine Aminotransferase (ALT/SGPT) 22IU/L Alkaline Phosphatase 97IU/L Troponin I < 0.012ng/ml Total Protein 7.6g/dl Albumin 4.3g/dl Globulin 3.30g/dl Albumin/Globulin Ratio 1.30 Bedside Urine pH (LAB) 7.0 Bedside Urine Protein (LAB) Negative Bedside Urine Glucose (UA) Negative Bedside Urine Ketones (LAB) Negative Bedside Urine Blood Negative Bedside Urine Nitrite (LAB) Negative Bedside Urine Leukocyte Esterase (L Negative Current Medications Medications (Trade) Dose Ordered Sig/Jeff Route PRN Reason Start Time Stop Time Status Last Admin Dose Admin Sodium Chloride 1,000 ml @ 1,000 mls/hr Q1H STAT IV 10/04/16 17:12 10/04/16 18:11 DC 10/04/16 17:47 Sodium Chloride (NS) 1,000 ml @ 1,000 mls/hr Q1H STAT IV 10/04/16 17:12 10/04/16 18:11 DC 10/04/16 19:15 Ondansetron HCl (Zofran Inj) 4 mg ONCE STAT IV 10/04/16 17:12 10/04/16 17:14 DC Procedures/MDM EKG read by me: Rate/Rhythm: Right bundle branch block a rate of 81 Intervals: Normal Impression: Right bundle branch block without obvious ischemia Chest x-ray shows no change per radiology. CT scan of the brain shows no acute hemorrhage or mass per radiology. Patient is an 89-year-old male who presents with generalized weakness from report. He has no one-sided weakness and no obvious slurred speech at this time. CT scan of the brain shows no mass or acute hemorrhage or obvious stroke. Chest x-ray shows no pneumonia. Urinalysis shows no sign of infection. Laboratory studies show a mild anemia and mild hyponatremia but the patient does not require transfusion of blood. He was given 2 L of normal saline for fluid resuscitation. The patient will be discharged home and can return for any worsening symptoms. At this point I doubt sepsis or stroke. I doubt serious electrolyte abnormality. He should follow-up with his primary doctor Dr. Okeefe within 24-48 hours for reevaluation. Departure Diagnosis: Primary Impression: Acute weakness Additional Impressions: Anemia Anemia type: unspecified type Qualified Code: D64.9 - Anemia, unspecified type Hyponatremia Condition: Fair Patient Instructions: Weakness, Unk Cause Referrals: JENNI OKEEFE MD (PCP) Additional Instructions: Call your primary care doctor TOMORROW for an appointment during the next 1-2 days.See the doctor sooner or return here if your condition worsens before your appointment time. GEORGE FERREIRA MD Oct 04, 2016 20:16
[2016-10-04 20:29] LABS: ADD UMIC NO; UR BILIRUBIN (Dip) NEGATIVE (NEGATIVE); UR BLOOD (Dip) NEGATIVE (NEGATIVE); UR CLARITY CLEAR (CLEAR); UR COLOR YELLOW (YELLOW); UR GLUCOSE (Dip) NEGATIVE (NEGATIVE); UR KETONES (Dip) NEGATIVE (NEGATIVE); UR LEUKOCYTE ESTERASE (Dip) NEGATIVE (NEGATIVE); UR NITRITE (Dip) NEGATIVE (NEGATIVE); UR TOTAL PROTEIN (Dip) NEGATIVE (NEGATIVE); UR UROBILINOGEN (Dip) 0.2 E.U./dL (0.1-1.0)
== END 2016-10-04 21:23 | disposition home or self-care (01) ==
LOC: E/R 16:58
DX: R53.1 Weakness (principal); D64.9 Anemia, unspecified; E87.1 Hypo-osmolality and hyponatremia; I10 Essential (primary) hypertension; E11.9 Type 2 diabetes mellitus without complications; J44.9 Chronic obstructive pulmonary disease, unspecified; G30.9 Alzheimer's disease, unspecified; R06.02 Shortness of breath; R93.0 Abnormal findings on diagnostic imaging of skull and head, not elsewhere classified; Z79.82 Long term (current) use of aspirin; Z79.84 Long term (current) use of oral hypoglycemic drugs
CPT/HCPCS: 36415; 70450; 71010; 80053; 81003; 83605; 84484; 85025; 85610; 85730; 87040; 87086; 93005; 99285; J7030